=== PATIENT | female | born 1945 | race Two or more races ===

== ENCOUNTER 2022-11-13 13:09 | Emergency (ER) | payer MEDICARE, MEDICAID, SELFPAY ==
[2022-11-13 13:24] VITALS: BP 115/65; PULSE 80; RESP 18; TEMP 36.4; O2SAT 97; BMI 27.3
--- NOTE | 2022-11-13 13:36 | ED_ITS ---
HPI - Extremity Injury (Upper) General Chief Complaint: Extremity Injury, Upper Stated Complaint: UPPER EXTREMITY PAIN/ POST SURGERY Time Seen by Provider: 11/13/22 13:36 Source: patient, family, caregiver and patient financial services coordinator Mode of arrival: walk-in Limitations: language barrier Exam limitations: relative is translating History of Present Illness HPI narrative: Presents to emergency department complaining of a rash. Patient states she had surgery last month. She was started on Keflex. Patient finished his antibiotics 10 days after the surgery. She has been doing well. To this ago started developing a rash to her legs and body. It was very itchy and erythematous. She does not know what the initial insult is. She has no previous history of ALLERGIES. She was taking Benadryl which was not helping call her doctor and yesterday she took a Zyrtec. She states since last night the rash and itchiness started expanding to her forehead her face and her scalp and he felt as it was red and fire. She is denying any headache, visual disturbance, or speech difficulties. She is here because of itching to the scalp feeling like her scalp is on fire and the diffuse rash. She denies any difficulty swallowing, sore throat, or swelling. She denies any chest pain, shortness of breath. She denies any nausea, vomiting, or diarrhea. She denies any fever, chills, or cough. She denies any abdominal pain, flank pain, hematuria, dysuria. She denies using any new creams, ointments, detergents, or soaps. Related Data Previous Rx's Medication Instructions Recorded diphenhydramine HCl 25 mg capsule 25 mg PO Q8H PRN itching #20 caps 11/13/22 (Benadryl) famotidine 20 mg tablet (Pepcid) 20 mg PO DAILY #10 tabs 11/13/22 prednisone 50 mg tablet 50 mg PO DAILY 5 days #5 tabs 11/13/22 Allergies Allergy/AdvReac Type Severity Reaction Status Date / Time No Known Drug Allergies Allergy Verified 11/13/22 13:33 Review of Systems ROS Status of ROS 10 or more systems reviewed and unremarkable except as noted in history and below Exam Narrative Exam Narrative: Nurses notes and vital signs reviewed and patient is not hypoxic. General: Nontoxic, Well-appearing and in no apparent distress. Skin: Warm, dry, no pallor noted. Diffuse hives to the anterior posterior legs, chest, abdomen, forearms, scalp and face.no signs of Purpura, vesicles, or Vasculitis. Head: Normocephalic, atraumatic. Neck: Supple, non-tender. Eye: Pupils are equal, round and EOMI. No scleral icterus. Ears, Nose, Mouth, and Throat: TM clear, no posterior oropharynx erythema or nasal mucosal hypertrophy, uvula is mid-line Oral mucosa is moist Cardiovascular: Regular Rate and Rhythm without murmur, gallop or rub. Respiratory: No accessory muscle use or respiratory distress. Lungs are clear to auscultation, no wheezing, rales or rhonchi Chest Wall: no tenderness Back: No midline thoracic or lumbar vertebral tenderness. No CVA tenderness Musculoskeletal: Right anterior shoulder incision healing without any erythema, exudate, or dehiscence. normal ROM, no calf or popliteal tenderness, no lower extremity edema/swelling GI: Abdomen is soft, non-distended. Normal bowel sounds. No masses appreciated. No tenderness to palpation. No rebound, guarding, or rigidity noted. Neurological: A&O x4. No cranial nerve dysfunction observed. No truncal ataxia. Moves all extremities. Sensation intact. Psychiatric: Cooperative and interactive. Normal mood and affect. Constitutional Vital Signs, click to edit/add: Last Vital Signs Temp 97.5 F L 11/13/22 13:24 Pulse 80 11/13/22 13:24 Resp 18 11/13/22 13:24 BP 115/65 11/13/22 13:24 Pulse Ox 97 11/13/22 13:24 O2 Del Method Room Air 11/13/22 13:24 Course Vital Signs Vital signs: Vital Signs Temperature 97.5 F L 11/13/22 13:24 Pulse Rate 80 11/13/22 13:24 Respiratory Rate 18 11/13/22 13:24 Blood Pressure 115/65 11/13/22 13:24 Pulse Oximetry 97 11/13/22 13:24 Oxygen Delivery Method Room Air 11/13/22 13:24 Temperature 97.5 F L 11/13/22 13:24 Pulse Rate 80 11/13/22 13:24 Respiratory Rate 18 11/13/22 13:24 Blood Pressure 115/65 11/13/22 13:24 Pulse Oximetry 97 11/13/22 13:24 Oxygen Delivery Method Room Air 11/13/22 13:24 MDM - Extremity Injury (Upper) MDM Narrative Medical decision making narrative: A shunt had an IV established, she was given Decadron 10 mg IV, Benadryl, and Pepcid. Patient's symptoms resolved. Patient feeling better although she still has some of the rash. Cystitis itches it was 4. Blood work was done to exclude any bacterial infection including labs are unremarkable. O2 sats was discussed with patient. She is given a prescription for prednisone, Benadryl, and Pepcid. She is advised to follow-up with her primary care doctor in the morning. At this time the patient is without objective evidence of an acute process requiring hospitalization or inpatient management. The patient has remained hemodynamically stable. No additional indication for emergent studies at this time. I answered all questions. Discussed discharge instructions including standard anticipatory guidance and what should prompt a return to the emergency department, including if they get worse are not getting better or develops any new or concerning symptoms. I've given them specific time frame in which to follow-up, and who to follow-up with. The patient demonstrates understanding. Patient is nontoxic and stable for discharge with outpatient follow-up. This note was created with the assistance of a speech recognition program. Although the intention is to generate documents that actually reflects the content of the visit, no guarantees can be provided that every mistake has been identified and corrected by editing. Lab Data Attestation: I reviewed the patient's lab results. Labs: Lab Results 11/13/22 Range/Units 14:00 WBC 7.7 (4.0-11.0) 10^3/uL RBC 4.01 L (4.20-5.40) 10^6/uL Hgb 12.5 (12.0-16.0) g/dL Hct 37.3 (36.0-48.0) % MCV 93.0 (81.0-99.0) fL MCH 31.2 (26.7-34.0) pg MCHC 33.5 (29.9-35.2) g/dL RDW 13.4 (11.0-15.0) % Plt Count 192 (150-450) 10^3/uL MPV 9.2 L (9.5-13.5) fL Seg Neuts % (Manual) 62.0 Band Neutrophils % 0.0 (0-5) % Lymphocytes % (Manual) 30.0 (20.5-60.0) % Atypical Lymphs % (Man) 1.0 % Monocytes % (Manual) 6.0 (1.7-12.0) % Eosinophils % (Manual) 1.0 (0.9-7.0) % Basophils % (Manual) 0.0 L (0.2-2.0) % Neutrophils # (Manual) 4.77 (1.4-6.5) 10^3/uL Band Neutrophils # 0.0 (0.0-0.3) 10^3/uL Lymphocytes # (Manual) 2.31 (1.20-3.80) 10^3/uL Monocytes # (Manual) 0.46 (0.30-0.80) 10^3/uL Eosinophils # (Manual) 0.07 (0.00-0.70) 10^3/uL Basophils # (Manual) 0.00 (0.00-0.10) 10^3/uL ESR 27 (<=30) mm/hr Sodium 138 (136-145) mmol/L Potassium 3.9 (3.5-5.1) mmol/L Chloride 104 (98-107) mmol/L Carbon Dioxide 24.4 (21.0-32.0) mmol/L Anion Gap 13.5 BUN 15.0 (7.0-18.0) mg/dL Creatinine 0.81 (0.55-1.02) mg/dL Est GFR ( Amer) >60 (>=60) Est GFR (Non-Af Amer) >60 (>=60) BUN/Creatinine Ratio 18.5 Glucose 134 H (74-106) mg/dL Calcium 9.2 (8.5-10.1) mg/dL C-Reactive Protein 0.8 (<=1.0) mg/dL Discharge Plan Discharge Chief Complaint: Extremity Injury, Upper Clinical Impression: Acute allergic reaction Patient Disposition: Home, Self-Care Time of Disposition Decision: 15:50 Condition: Good Mode of Transportation: Private Vehicle Prescriptions / Home Meds: New famotidine [Pepcid] 20 mg tablet 20 mg PO DAILY Qty: 10 0RF prednisone 50 mg tablet 50 mg PO DAILY 5 Days Qty: 5 0RF diphenhydramine HCl [Benadryl] 25 mg capsule 25 mg PO Q8H PRN (Reason: itching) Qty: 20 0RF Instructions: General Allergic Reaction (ED) Stand Alone Forms: Portal Instructions Referrals: Physician,Non-Staff, MD [Primary Care Provider] - 1 week
[2022-11-13] MEDS: 0.9 % SODIUM CHLORIDE 1,000 ML 999 ML IV (14:07)
[2022-11-13] MEDS: DIPHENHYDRAMINE HCL 50 MG/ML (1ML) VIAL IV (14:08)
[2022-11-13] MEDS: DEXAMETHASONE SODIUM PHOSPHATE 10 MG/ML VIAL IV (14:08)
[2022-11-13 14:09] LABS: Hematocrit 37.3 % (36.0-48.0); Hemoglobin 12.5 g/dL (12.0-16.0); Mean Corpuscular HGB Conc 33.5 g/dL (29.9-35.2); Mean Corpuscular Hemoglobin 31.2 pg (26.7-34.0); Mean Platelet Volume 9.2 fL (9.5-13.5); Platelet Count 192 10^3/uL (150-450); Red Blood Count 4.01 10^6/uL (4.20-5.40); Red Cell Distribution Width 13.4 % (11.0-15.0); White Blood Count 7.7 10^3/uL (4.0-11.0)
--- NOTE | 2022-11-13 14:21 | PC.NURSE ---
Pt. reports having an itching sensation to right upper extremity after surgery to right shoulder about 1 month ago. Pt. states pain has been controlled but started with itching sensaion about 3 days ago.
[2022-11-13 14:23] LABS: Anion Gap 13.5; BUN Creatinine Ratio 18.5; C Reactive Protein 0.8 mg/dL (<=1.0); Calcium 9.2 mg/dL (8.5-10.1); Carbon Dioxide 24.4 mmol/L (21.0-32.0); Chloride 104 mmol/L (98-107); Estimated GFR (African America >60 (>=60); Estimated GFR (Non-African Ame >60 (>=60); Glucose 134 mg/dL (74-106); Potassium 3.9 mmol/L (3.5-5.1); Sodium 138 mmol/L (136-145)
[2022-11-13 14:27] LABS: Erythrocyte Sedimentation Rate 27 mm/hr (<=30)
[2022-11-13 14:38] LABS: Lymphocytes Absolute Manual 2.31 10^3/uL (1.20-3.80); Monocytes Absolute Manual 0.46 10^3/uL (0.30-0.80); Segmented Neut Absolute Manual 4.77 10^3/uL (1.4-6.5)
[2022-11-13 14:39] LABS: Eosinophils Absolute Manual 0.07 10^3/uL (0.00-0.70)
[2022-11-13] MEDS: FAMOTIDINE/PF 20 MG/2 ML VIAL IV (16:03)
[2022-11-13 16:07] VITALS: BP 122/77; PULSE 78; RESP 16; O2SAT 98
== END 2022-11-13 16:18 | disposition home or self-care (01) ==
PROVIDERS: Emergency Provider Emergency Medicine
DX: T78.40XA Allergy, unspecified, initial encounter (principal)
CPT/HCPCS: 36415; 80048; 85007; 85025; 85027; 85652; 86140; 96374; 96375; 99284; J1100

== ENCOUNTER 2022-12-03 21:51 | Emergency (ER) | payer MEDICARE, MEDICAID, SELFPAY ==
[2022-12-03 21:58] VITALS: BP 119/67; PULSE 87; RESP 16; TEMP 36.5; O2SAT 95; BMI 26.5
--- NOTE | 2022-12-03 22:26 | ED_ITS ---
HPI - Fall General Chief Complaint: Fall Stated Complaint: RT FLANK PAIN/SHOULDER FALL Time Seen by Provider: 12/03/22 22:13 Source: patient and family Mode of arrival: walk-in Limitations: language barrier History of Present Illness HPI Narrative: family interpreting. Patient fell last week. Was reaching down for a cord and loss balance.Struck her right chest. Also struck face about her right eye. Her face is doing ok. No LOC. Continues to have pain of her right ribs. No relief with motrin. No fever Onset (ago): week(s) Related Data Home Medications Medication Instructions Recorded Confirmed cyclosporine 0.05 % eye drops in a drp ophthalmic (eye) 12/03/22 dropperette (Restasis) ibuprofen 200 mg capsule 200 mg PO Q8H 12/03/22 12/03/22 Allergies Allergy/AdvReac Type Severity Reaction Status Date / Time No Known Drug Allergies Allergy Verified 12/03/22 21:58 Review of Systems ROS Status of ROS 10 or more systems reviewed and unremarkable except as noted in history and below Exam Constitutional Vital Signs, click to edit/add: Last Vital Signs Temp 97.7 F 12/03/22 21:58 Pulse 82 12/03/22 23:47 Resp 14 12/03/22 23:47 BP 130/69 12/03/22 23:47 Pulse Ox 97 12/03/22 23:47 O2 Del Method Room Air 12/03/22 23:47 Common normals: average body habitus, healthy appearing and alert Eye Common normals: EOMs intact bilaterally and conjunctivae normal Neck & C-Spine Common normals: full ROM Chest Other: right chest wall tenderness Respiratory Common normals: no use of accessory muscles and clear to auscultation bilaterally Cardio Common normals: regular rhythm, S1 normal heart sound and S2 normal heart sound GI Common normals: Normal to inspection, nondistended, normoactive bowel sounds present, soft to palpation and non-tender Extremity Common normals: normal to inspection and full ROM Neuro Common normals: moves all extremities, no focal motor deficits and no sensory deficits noted Psych Appearance: grossly normal Course Vital Signs Vital signs: Vital Signs Temperature 97.7 F 12/03/22 21:58 Pulse Rate 87 12/03/22 21:58 Respiratory Rate 16 12/03/22 21:58 Blood Pressure 119/67 12/03/22 21:58 Pulse Oximetry 95 12/03/22 21:58 Oxygen Delivery Method Room Air 12/03/22 21:58 Temperature 97.7 F 12/03/22 21:58 Pulse Rate 82 12/03/22 23:47 Respiratory Rate 14 12/03/22 23:47 Blood Pressure 130/69 12/03/22 23:47 Pulse Oximetry 97 12/03/22 23:47 Oxygen Delivery Method Room Air 12/03/22 23:47 MDM - Fall MDM Narrative Medical decision making narrative: patient fell last week injury to her right chest. CT with evidence of 2 nondisplaced rib fractures. Also found to have pulmonary nodule that will require followup patient medicated with morphine for pain in the department. Labs WNL. She is discharged home with [place] and is to follow up with her doctor next week. Family informed of the need to have repeat CT chest in 3-6 months to monitor pulmonary nodule Lab Data Labs: Lab Results 12/03/22 Range/Units 22:45 WBC 7.2 (4.0-11.0) 10^3/uL RBC 3.91 L (4.20-5.40) 10^6/uL Hgb 12.1 (12.0-16.0) g/dL Hct 35.8 L (36.0-48.0) % MCV 91.6 (81.0-99.0) fL MCH 30.9 (26.7-34.0) pg MCHC 33.8 (29.9-35.2) g/dL RDW 14.0 (11.0-15.0) % Plt Count 264 (150-450) 10^3/uL MPV 9.3 L (9.5-13.5) fL Neut % (Auto) 43.8 (43.0-75.0) % Lymph % (Auto) 42.4 (20.5-60.0) % [place] % (Auto) 10.9 (1.7-12.0) % Eos % (Auto) 2.1 (0.9-7.0) % Baso % (Auto) 0.4 (0.2-2.0) % Neut # (Auto) 3.1 (1.4-6.5) 10^3/uL Lymph # (Auto) 3.0 (1.2-3.8) 10^3/uL [place] # (Auto) 0.8 (0.3-0.8) 10^3/uL Eos # (Auto) 0.2 (0.0-0.7) 10^3/uL Baso # (Auto) 0.0 (0.0-0.1) 10^3/uL Abs Immat Gran (auto) 0.03 (0.00-0.03) 10^3/uL Imm/Tot Granulo (auto) 0.4 (0.0-0.5) % Sodium 139 (136-145) mmol/L Potassium 3.9 (3.5-5.1) mmol/L Chloride 104 (98-107) mmol/L Carbon Dioxide 26.0 (21.0-32.0) mmol/L Anion Gap 12.9 BUN 12.0 (7.0-18.0) mg/dL Creatinine 0.85 (0.55-1.02) mg/dL Est GFR ( Amer) >60 (>=60) Est GFR (Non-Af Amer) >60 (>=60) BUN/Creatinine Ratio 14.1 Glucose 108 H (74-106) mg/dL Lactate 1.1 (0.4-2.0) mmol/L Calcium 9.2 (8.5-10.1) mg/dL Total Bilirubin 0.3 (0.2-1.0) mg/dL AST 38 H (15-37) U/L ALT 37 (14-59) U/L Alkaline Phosphatase 104 (46-116) U/L Total Protein 7.8 (6.4-8.2) g/dL Albumin 3.4 (3.4-5.0) g/dL Globulin 4.4 g/dL Albumin/Globulin Ratio 0.8 Discharge Plan Discharge Chief Complaint: Fall Clinical Impression: Closed rib fracture Prescriptions / Home Meds: No Action cyclosporine [Restasis] 0.05 % dropperette OPHTHALMIC (EYE) ibuprofen 200 mg capsule 200 mg PO Q8H Instructions: Rib Fracture (ED) Additional Instructions: follow up with your doctor next week. need repeat CT chest in 3-6 months as discussed Stand Alone Forms: Portal Instructions Referrals: Physician,Non-Staff, MD [Primary Care Provider] - 1 week
--- NOTE | 2022-12-03 22:29 | CT_ITS ---
The [address] [address] Patient Name: ARASH FLORES MRN: [facility]:[id number] date: 1945 Sex: F Assigned Patient Location: ER Current Patient Location: ER Accession/Order Number: [id number] Exam Date: 12/03/2022 23:30 Report Date: 12/04/2022 00:40 At the request of: EBONY KHAN Procedure: CT chest w con EXAM: CT chest w con, CT abdomen pelvis w con HISTORY: right chest wall injury , right rib and shoulder pain from fall injury. COMPARISON: Chest x-ray 04/28/2021 TECHNIQUE: Multiple axial views CT chest with 100 mL Omnipaque 300 IV contrast. Coronal sagittal reformats. Multiple axial views CT abdomen pelvis with 100 mL Omnipaque 300 IV contrast. Coronal sagittal reformats. FINDINGS: CHEST: No pneumothorax, lung contusion, pleural effusions, pneumomediastinum, or mediastinal hematoma. 4 mm solid noncalcified irregular right middle lobe pulmonary nodule (image 50 series 3). Mild bilateral lower lung linear atelectasis/scar. Cardiac mediastinum is unremarkable. Subtle minimal right lateral eighth rib cortical buckling (image 78 series 5). Left anterior 6th rib mildly displaced fracture deformity with callus formation (image 75 series 5), probably subacute or remote. Mild left anterior fifth rib cortical buckling (image 60 series 5). Partially visualized right shoulder arthroplasty. Minimal hiatal hernia. ABDOMEN AND PELVIS: No solid organ laceration, hematoma, hemoperitoneum, or pneumoperitoneum. Moderate hepatic steatosis. Gallbladder, pancreas, spleen, adrenal glands, right kidney, urinary bladder, and other pelvic structures are unremarkable. Appendix is not seen. Uterus is not seen nor surgically absent. Multiple subcentimeter left renal cystic structures, too small to characterize. Findings are statistically cysts. Scattered colonic diverticula. Moderate amount of stool within the right large bowel. No evidence for small bowel obstruction, large ascites, or free air. Small fat-containing umbilical hernia without bowel protrusion. Chronic arthritic changes of the visualized bony structures. No acute bony abnormality. CT/CT chest w con IMPRESSION: Subtle minimal right lateral eighth rib cortical buckling (image 78 series 5). Correlate with point tenderness for any subtle nondisplaced rib fracture. Left anterior 6th rib mildly displaced fracture deformity with callus formation (image 75 series 5), probably subacute or remote. Mild left anterior fifth rib cortical buckling (image 60 series 5). Correlate with point tenderness for acuity. Otherwise, no CT evidence for acute traumatic chest lung or mediastinal injury. No CT evidence for acute abdominal or pelvic solid organ or hollow viscus injury. 4 mm solid noncalcified irregular right middle lobe pulmonary nodule (image 50 series 3). Consider 3-[address] follow-up given the slight irregular margin. Hepatic steatosis. Colonic diverticula. Electronically authenticated by: RICARDO FRASER Date: 12/04/2022 00:40
--- NOTE | 2022-12-03 22:29 | CT_ITS ---
The [address] [address] Patient Name: ARASH FLORES MRN: [facility]:[id number] date: 1945 Sex: F Assigned Patient Location: ER Current Patient Location: ER Accession/Order Number: [id number] Exam Date: 12/03/2022 23:30 Report Date: 12/04/2022 00:40 At the request of: EBONY KHAN Procedure: CT abdomen pelvis w con EXAM: CT chest w con, CT abdomen pelvis w con HISTORY: right chest wall injury , right rib and shoulder pain from fall injury. COMPARISON: Chest x-ray 04/28/2021 TECHNIQUE: Multiple axial views CT chest with 100 mL Omnipaque 300 IV contrast. Coronal sagittal reformats. Multiple axial views CT abdomen pelvis with 100 mL Omnipaque 300 IV contrast. Coronal sagittal reformats. FINDINGS: CHEST: No pneumothorax, lung contusion, pleural effusions, pneumomediastinum, or mediastinal hematoma. 4 mm solid noncalcified irregular right middle lobe pulmonary nodule (image 50 series 3). Mild bilateral lower lung linear atelectasis/scar. Cardiac mediastinum is unremarkable. Subtle minimal right lateral eighth rib cortical buckling (image 78 series 5). Left anterior 6th rib mildly displaced fracture deformity with callus formation (image 75 series 5), probably subacute or remote. Mild left anterior fifth rib cortical buckling (image 60 series 5). Partially visualized right shoulder arthroplasty. Minimal hiatal hernia. ABDOMEN AND PELVIS: No solid organ laceration, hematoma, hemoperitoneum, or pneumoperitoneum. Moderate hepatic steatosis. Gallbladder, pancreas, spleen, adrenal glands, right kidney, urinary bladder, and other pelvic structures are unremarkable. Appendix is not seen. Uterus is not seen nor surgically absent. Multiple subcentimeter left renal cystic structures, too small to characterize. Findings are statistically cysts. Scattered colonic diverticula. Moderate amount of stool within the right large bowel. No evidence for small bowel obstruction, large ascites, or free air. Small fat-containing umbilical hernia without bowel protrusion. Chronic arthritic changes of the visualized bony structures. No acute bony abnormality. CT/CT abdomen pelvis w con IMPRESSION: Subtle minimal right lateral eighth rib cortical buckling (image 78 series 5). Correlate with point tenderness for any subtle nondisplaced rib fracture. Left anterior 6th rib mildly displaced fracture deformity with callus formation (image 75 series 5), probably subacute or remote. Mild left anterior fifth rib cortical buckling (image 60 series 5). Correlate with point tenderness for acuity. Otherwise, no CT evidence for acute traumatic chest lung or mediastinal injury. No CT evidence for acute abdominal or pelvic solid organ or hollow viscus injury. 4 mm solid noncalcified irregular right middle lobe pulmonary nodule (image 50 series 3). Consider 3-[address] follow-up given the slight irregular margin. Hepatic steatosis. Colonic diverticula. Electronically authenticated by: RICARDO FRASER Date: 12/04/2022 00:40
[2022-12-03 22:52] LABS: Basophils Percent Auto 0.4 % (0.2-2.0); Eosinophils Absolute Auto 0.2 10^3/uL (0.0-0.7); Eosinophils Percent Auto 2.1 % (0.9-7.0); Hematocrit 35.8 % (36.0-48.0); Hemoglobin 12.1 g/dL (12.0-16.0); Immature Granulocytes Abs Auto 0.03 10^3/uL (0.00-0.03); Immature Granulocytes Pct Auto 0.4 % (0.0-0.5); Lymphocytes Percent Auto 42.4 % (20.5-60.0); Mean Corpuscular HGB Conc 33.8 g/dL (29.9-35.2); Mean Corpuscular Hemoglobin 30.9 pg (26.7-34.0); Mean Corpuscular Volume 91.6 fL (81.0-99.0); Mean Platelet Volume 9.3 fL (9.5-13.5); Monocytes Absolute Auto 0.8 10^3/uL (0.3-0.8); Monocytes Percent Auto 10.9 % (1.7-12.0); Neutrophils Absolute Auto 3.1 10^3/uL (1.4-6.5); Neutrophils Percent Auto 43.8 % (43.0-75.0); Platelet Count 264 10^3/uL (150-450); Red Blood Count 3.91 10^6/uL (4.20-5.40); White Blood Count 7.2 10^3/uL (4.0-11.0)
[2022-12-03] MEDS: 0.9 % SODIUM CHLORIDE 1,000 ML 999 ML IV (22:57)
[2022-12-03] MEDS: ONDANSETRON PF 4 MG/2 ML VIAL IV (22:58)
[2022-12-03] MEDS: MORPHINE SULFATE 4 MG/ML VIAL IV (22:58)
[2022-12-03 23:05] LABS: Alanine Aminotransferase 37 U/L (14-59); Albumin Globulin Ratio 0.8; Albumin Level 3.4 g/dL (3.4-5.0); Alkaline Phosphatase 104 U/L (46-116); Anion Gap 12.9; Aspartate Amino Transferase 38 U/L (15-37); BUN Creatinine Ratio 14.1; Bilirubin Total 0.3 mg/dL (0.2-1.0); Calcium 9.2 mg/dL (8.5-10.1); Chloride 104 mmol/L (98-107); Estimated GFR (African America >60 (>=60); Estimated GFR (Non-African Ame >60 (>=60); Globulin 4.4 g/dL; Glucose 108 mg/dL (74-106); Potassium 3.9 mmol/L (3.5-5.1); Sodium 139 mmol/L (136-145); Total Protein 7.8 g/dL (6.4-8.2)
[2022-12-03 23:07] LABS: Lactate/Lactic Acid 1.1 mmol/L (0.4-2.0)
[2022-12-03 23:47] VITALS: BP 130/69; PULSE 82; RESP 14; O2SAT 97
[2022-12-04] MEDS: HYDROCODONE/ACETAMINOPHEN 5-325 MG TABLET 2 TAB PO (01:26)
[2022-12-04 01:33] VITALS: BP 138/76; PULSE 82; RESP 18; O2SAT 97
== END 2022-12-04 01:36 | disposition home or self-care (01) ==
LOC: ER 21:58
PROVIDERS: Emergency Provider Internal Medicine
DX: S22.41XA Multiple fractures of ribs, right side, initial encounter for closed fracture (principal); W19.XXXA Unspecified fall, initial encounter; Z79.899 Other long term (current) drug therapy
CPT/HCPCS: 36415; 71260; 74177; 80053; 81003; 83605; 85025; 96374; 96375; 99284; Q9967

== ENCOUNTER 2023-05-26 14:41 | Outpatient (OUT) | payer MEDICARE, MEDICAID, SELFPAY ==
[2023-05-26 15:16] LABS: Anion Gap 9.5; BUN Creatinine Ratio 15.6; Calcium 9.4 mg/dL (8.5-10.1); Carbon Dioxide 30.5 mmol/L (21.0-32.0); Chloride 105 mmol/L (98-107); Estimated GFR (African America >60 (>=60); Estimated GFR (Non-African Ame >60 (>=60); Glucose 96 mg/dL (74-106); Sodium 141 mmol/L (136-145)
== END 2023-05-26 14:42 | disposition home or self-care (01) ==
PROVIDERS: Visit Provider Family Medicine
DX: R91.1 Solitary pulmonary nodule (principal)
CPT/HCPCS: 36415; 80048

== ENCOUNTER 2023-06-08 09:29 | Outpatient (OUT) | payer MEDICARE, MEDICAID, SELFPAY ==
--- OUTSIDE RECORDS SUMMARY | 2023-06-08 09:32 | XMS_ITS | CCD ---
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 Name Role Phone SHANI, DR CAMP Consulting Unavailable REQUEST, DR GUEVARA LISTED Primary Care Unavaila alex LAWS, TONY Attending Unavailable EUSEBIA, TONY Admitting Unavailable TRACEY RODRÍGUEZ Consulting Unavailable Joey Larson Consulting Unavailable Noe, Adriana Consulting Unavailable NONE, XXXX Primary Care Physician Unavailab GLENN Cantor Attending Unavailable Dimitrios, Glenn Medina Referring Unavailable Dimitrios, Glenn Medina Attending Unavailable Dimitrios, Glenn A Admitting Unavailable Dimitrios, Glenn A Attending Unavailable Dimitrios, Glenn A Admitting Unavailable Brown, Glenn A Attending Unavailable Dimitrios, Glenn A Admitting Unavailable Brown, Glenn A Referring Unavailable Dimitrios, Glenn A Referring Unavailable Dimitrios, Glenn A Attending Unavailable Brown, Glenn A Admitting Unavailable Allergies Allergy Classification Reported Allergen(s) Allergy Type Date of Onset Reaction(s) Facility (1 source) No Known Medication Allergies; Translations: [No Known Medication Allergies] Propensity to adverse reactions (disorder) [facility] Repository Medications Current Medications Medication Drug Class(es) Dates Sig (Normalized) Sig (Original) Tylenol (1 source) Start: 09-27-2022 Tylenol PRN Pain 1-3, Refills(s) 0, Pain Start Date: 09/27/22 Status: Ordered acetaminophen 325 mg / oxyCODONE hydrochloride 5 mg oral tablet (3 sources) Opioid Agonist Start: 10-12-2022 Percocet 5 mg-325 mg oral tablet See Instructions, 40 tab(s), Refill(s) 0, 1-2 tab(s) Oral q4hr, [id number], 155, cm, 09/28/22 5:33:00 EDT, Height/Length Dosing, 65.6, kg, 09/28/22 5:33:00 EDT, Weight Dosing Start Date: 10/22/22 Status: Ordered celecoxib 100 mg oral capsule (2 sources) Nonsteroidal Anti-inflammatory Drug Start: 10-12-2022 take 1 capsule by mouth twice daily as needed for pain CeleBREX 100 mg Cap 100 mg = 1 cap(s), Oral, BID, PRN for pain, # 60 cap(s), Refills(s) 0, Pharmacy: [facility]/pharmacy #[id number], 155, cm, 09/28/22 5:33:00 EDT, Height/Length Dosing, 65.6, kg, 09/28/22 5:33:00 EDT, Weight Dosing Start Date: 10/12/22 Status: Ordered cephalexin 500 mg oral capsule (1 source) Cephalosporin Antibacterial Start: 10-12-2022 End: 10-19-2022 take 1 capsule by mouth every eight hours Keflex 500 mg Cap 500 mg = 1 cap(s), Oral, q8hr, X 7 day(s), # 21 cap(s), Refills(s) 0, Pharmacy: [facility]/pharmacy #[id number], 155, cm, 09/28/22 5:33:00 EDT, Height/Length Dosing, 65.6, kg, 09/28/22 5:33:00 EDT, Weight Dosing Start Date: 10/12/22 Stop Date: 10/19/22 Status: Ordered docusate sodium 100 mg oral capsule (2 sources) Start: 10-12-2022 take 1 capsule by mouth twice daily as needed for constipation Colace 100 mg Cap 100 mg = 1 cap(s), Oral, BID, PRN for constipation, # 20 cap(s), Refills(s) 0, Pharmacy: [facility]/pharmacy #[id number], 155, cm, 09/28/22 5:33:00 EDT, Height/Length Dosing, 65.6, kg, 09/28/22 5:33:00 EDT, Weight Dosing Start Date: 10/12/22 Status: Ordered Ibuprofen (1 source) Nonsteroidal Anti-inflammatory Drug Start: 09-27-2022 ibuprofen PRN Pain 1-3, Pain Start Date: 09/27/22 Status: Ordered Multivitamin preparation (3 sources) Start: 09-27-2022 take 1 tablet by mouth once daily multivitamin 1 tab, Oral, Daily, Refill(s) 0, Prophylaxis Start Date: 09/27/22 Status: Ordered Problems Problem Classification Problem Date Documented Da te Episodic/Chronic E Codes: Fall (1 source) Fall (on) (from) unspecified stairs and steps, initial encounter; Translations: [FALL ON FROM UNS STAIRS STEPS INIT] Onset: 05-03-2021 Episodic Headache; including migraine (3 sources) Headache; including migraine; Translations: [HEADACHE UNSPECIFIED] Onset: 04-28-2021 Immunizations and screening for infectious disease (1 source) Encounter for immunization; Translations: [ENCOUNTER FOR IMMUNIZATION] Onset: 05-03-2021 Episodic Other injuries and conditions due to external causes (1 source) Other specified injuries of head, initial encounter; Translations: [OTH SPEC INJURIES HEAD INITIAL ENC] Onset: 05-03-2021 Episodic Other nervous system disorders (1 source) Other chronic pain; Translations: [OTHER CHRONIC PAIN] Onset: 05-03-2021 Chronic Other non-traumatic joint disorders (1 source) Transient arthropathy; Translations: [Other specific arthropathies, not elsewhere classified, right shoulder] Onset: 10-12-2022 Chronic Other non-traumatic joint disorders (1 source) Pain in left shoulder; Translations: [PAIN IN LEFT SHOULDER] Onset: 05-03-2021 Episodic Other non-traumatic joint disorders (1 source) Pain in right shoulder; Translations: [PAIN IN RIGHT SHOULDER] Onset: 05-03-2021 Episodic Sprains and strains (1 source) Strain of muscle, fascia and tendon at neck level, initial encounter; Translations: [STRN MUSC FASC TENDON NECK LEVL INT] Onset: 05-03-2021 Episodic Superficial injury; contusion (2 sources) Abrasion of other part of head, initial encounter; Translations: [Contusion of other part of head, initial encounter] Onset: 05-03-2021 Episodic Results Test Name Value Interpretation Reference Range Facility CT 3D Reconstruction Ethel Clarke 04-10-2023 CT 3D Reconstruction Separate Wk Exam Date/Time: 04/07/2023 17:11 EST Reason for Exam: [id number] upper extremity report from the same date. Ordering Provider: Glenn Plunkett FINAL REPORT Dictated: 04/10/2023 4:35 pm Bernardo Lizarraga DO Signed (Electronic Signature): 04/10/2023 4:35 pm Signed by: Bernardo Lizarraga DO Transcribed by: JACKSON Technologist: JEANNETTE [facility] CT Upper Extremity w/o Contr ast [place] 04-10-2023 CT Upper Extremity w/o Contrast Right Exam Date/Time: 04/07/2023 17:10 EST Reason for Exam: [id number] Report IMPRESSION: HEALING NONDISPLACED FRACTURE OF THE ACROMION. EXAMINATION: CT Upper Extremity w/o Contrast Right HISTORY: Scapular fracture TECHNIQUE: Multiple contiguous axial images were obtained of the right shoulder without contrast . Multiplanar reformats were obtained. 3-D reconstructed images were obtained. COMPARISON: CT 09/27/2022 FINDINGS: Healing nondisplaced fracture of the acromion. No additional fractures. There is lateral downsloping of the acromion. Mild degenerative changes at the acromioclavicular joint. Postsurgical changes of reverse shoulder arthroplasty without periprosthetic abnormality/fracture . No overt glenohumeral joint effusion. Soft tissues appear within normal limits. All CT scans at this facility use dose modulation, iterative reconstruction, and/or weight based dosing when appropriate to reduce radiation dose to as low as reasonably achievable. Ordering Provider: Glenn Plunkett FINAL REPORT Dictated: 04/10/2023 4:35 pm Bernardo Lizarraga DO Signed (Electronic Signature): 04/10/2023 4:35 pm Signed by: Bernardo Lizarraga DO Transcribed by: JACKSON Technologist: [facility] Consent for Treatmenton Consent for Treatment [id number] #1.00TIFF [facility] Physician Orderon 03-30-2023 Physician Order [id number] #1.00TIFF [facility] Lab Miscellaneous-LCon 02-16 Lab Miscellaneous See Ref. Report Invalid Interpretation Code [facility] Comment on above: Result Comment: [facility] at: [facility] [address], [place] [id number] PhD Raphael Sharma Results scanned into Lab Documents Performed at: [facility] [address], [place] [id number] PhD Raphael Sharma Performed By: #### 1 [id number] #### [facility] [address] [place] [address] Reference Lab Reporton 02-16 Reference Lab Report [id number] 2#1.00TIFF Normal [facility] Coding Summary.on 02-08-2023 Coding Summary. [id number] #1.00TIFF Normal [facility] Auto Diffon 02-07-2023 Basophils/100 WBC (Bld) 0.9 % Normal 0.0-2.0 [facility] Comment on above: Order Comment: Order Added by Discern Expert. Performed By: #### 1 1132875, 0702533, 0924225, 0021116 #### [facility] [address] [place] [address] Basophils/Leukocytes Auto (Bld) [Pure # fraction] 0.1 E9/L Normal 0.0-0.2 [facility] Comment on above: Order Comment: Order Added by Discern Expert. Performed By: #### 1 [id number], 3553812, 2596148, 2193790 #### [facility] [address] [place] [address] Eosinophils/100 WBC (Bld) 1.7 % Normal 0.0-8.0 [facility] Comment on above: Order Comment: Order Added by Discern Expert. Performed By: #### 1 [id number], 0285931, 6904491, 5436583 #### [facility] [address] [place] [address] Eosinophils/Leukocyte s Auto (Bld) [Pure # fraction] 0.1 E9/L Normal 0.0-0.5 [facility] Comment on above: Order Comment: Order Added by Discern Expert. Performed By: #### 1 4921216, 9343095, 3629093, 1786087 #### [facility] [address] [place] [address] Lymphocytes/100 WBC (Bld) 50.7 % High 14.0-50.0 [facility] Comment on above: Order Comment: Order Added by Discern Expert. Performed By: #### 1 3749780, 4432516, 5602579, 2337317 #### [facility] [address] [place] [address] Lymphocytes/Leukocyte s Auto (Bld) [Pure # fraction] 4.0 E9/L Normal 1.0-4.0 [facility] Comment on above: Order Comment: Order Added by Yvonne Expert. Performed By: #### 1 7241088, 8918059, 2260984, 8357314 #### [facility] [address] [place] [address] Monocytes/100 WBC (Bld) 10.0 % Normal 4.0-14.0 [facility] Comment on above: Order Comment: Order Added by Yvonne Expert. Performed By: #### 1 9561015, 2542127, 8149608, 8219441 #### [facility] [address] [place] [address] Monocytes/Leukocytes Auto (Bld) [Pure # fraction] 0.8 E9/L Normal 0.2-1.0 [facility] Comment on above: Order Comment: Order Added by Discern Expert. Performed By: #### 1 4389317, 4708488, 9818571, 8634941 #### [facility] [address] [place] [address] Neutrophils/100 WBC (Bld) 36.7 % Normal 36.0-75.0 [facility] Comment on above: Order Comment: Order Added by Yvonne Expert. Performed By: #### 1 7660901, 7411287, 4940139, 0241681 #### [facility] [address] [place] [address] Neutrophils/Leukocyte s Auto (Bld) [Pure # fraction] 2.9 E9/L Normal 2.0-7.5 [facility] Comment on above: Order Comment: Order Added by Discern Expert. Performed By: #### 1 1256777, 2942058, 7625142, 4924660 #### [facility] [address] [place] [address] CBC w/ Auto Diffon Erythrocyte distribution width (RBC) [Ratio] 14.5 % High 10.9-14.2 [facility] Comment on above: Performed By: #### 1 0513892, 9958776, 6802989, 7328662 #### [facility] [address] [place] [address] Hematocrit (Bld) [Volume fraction] 39.6 % Normal 34.0-46.0 [facility] Comment on above: Performed By: #### 1 1141364, 2389332, 0694492, 8388933 #### [facility] [address] [place] [address] Hemoglobin (Bld) [Mass/Vol] 13.4 g/dL Normal 12.0-16.0 [facility] Comment on above: Performed By: #### 1 7968807, 7701478, 9977998, 4418533 #### [facility] [address] [place] [address] MCH (RBC) [Entitic mass] 31.1 pg Normal 27.0-34.0 [facility] Comment on above: Performed By: #### 1 2017516, 6858845, 5103205, 8704250 #### [facility] [address] [place] [address] MCHC (RBC) [Mass/Vol] 33.8 g/dL Normal 31.4-36.0 [facility] Comment on above: Performed By: #### 1 8289441, 4153673, 1366033, 2123734 #### [facility] [address] [place] [address] MCV (RBC) [Entitic vol] 92.1 fL Normal 80.0-100.0 [facility] Comment on above: Performed By: #### 1 9682285, 8308058, 8288528, 2560152 #### [facility] [address] [place] [address] Platelet mean volume (Bld) [Entitic vol] 8.1 fL Normal 6.4-10.8 [facility] Comment on above: Performed By: #### 1 2886282, 7190650, 5369896, 6636330 #### [facility] [address] [place] [address] Platelets (Bld) [#/Vol] 226.0 E9/L Normal 150.0-500.0 [facility] Comment on above: Performed By: #### 1 6936658, 2302437, 8494980, 2443541 #### [facility] [address] [place] [address] RBC (Bld) [#/Vol] 4.3 E12/L Normal 4.3-5.9 [facility] Comment on above: Performed By: #### 1 4175363, 2960287, 8001854, 8487750 #### [facility] [address] [place] [address] WBC corrected for nucl RBC Auto (Bld) [#/Vol] 7.9 E9/L Normal 4.0-11.0 [facility] Comment on above: Result Comment: Slid e reviewed by LW. Performed By: #### 1 6775205, 3414872, 2557636, 1232366 #### [facility] [address] [place] [address] CRPon 02-07-2023 CRP [Mass/Vol] 0.6 mg/dL Normal <=1.9 [facility] Comment on above: Performed By: #### 1 4142922, 9382143, 5437462, 0041663 #### [facility] [address] [place] [address] Consent for Treatmenton 01-29 Consent for Treatment [id number] #1.00TIFF Normal [facility] Lab Miscellaneous-LCon 02-07 Test Code 248714 Invalid Interpretation Code [facility] Comment on above: Performed By: #### 1 [id number] #### [facility] [address] [place] [address] Test Name Interleukin 6 Invalid Interpretation Code [facility] Comment on above: Performed By: #### 1 [id number] #### [facility] [address] [place] [address] Physician Orderon 02-07-2023 Physician Order [id number] 8#1.00TIFF Normal [facility] Sed Rate Automatedon 023 Sed Rate Automated 15 mm/hr Normal 0-34 [facility] Comment on above: Performed By: #### 1 0938308, 2846372, 6361469, 0631175 #### [facility] [address] [place] [address] Insurance Correspondence Off iceon 01-10-2023 Insurance Correspondence Office [id number] #1.00CD:127 Normal [facility] IntraOperative Documentson 0 10-19-2022 IntraOperative Documents [id number] #1.00CD:127 Normal [facility] Auto Diffon 10-13-2022 Basophils/100 WBC (Bld) 0.2 % Normal 0.0-2.0 [facility] Comment on above: Order Comment: Order Added by Discern Expert. Performed By: #### 2 716693, 8919956, 0347987, 4586849, 0126200, 82672148 ####[facility] [address] [place] [address] Basophils/Leukocytes Auto (Bld) [Pure # fraction] 0.0 E9/L Normal 0.0-0.2 [facility] Comment on above: Order Comment: Order Added by Discern Expert. Performed By: #### 2 253648, 0889922, 5935353, 7473566, 2621473, 59356622 ####[address] [place] [address] Eosinophils/100 WBC (Bld) 0.0 % Normal 0.0-8.0 [facility] Comment on above: Order Comment: Order Added by Yvonne Expert. Performed By: #### 2 507497, 0543962, 8441533, 7356069, 7858713, 05951540 ####[address] [place] [address] Eosinophils/Leukocyte s Auto (Bld) [Pure # fraction] 0.0 E9/L Normal 0.0-0.5 [facility] Comment on above: Order Comment: Order Added by Yvonne Expert. Performed By: #### 2 998920, 9928222, 1322354, 6321360, 5472646, 24909433 ####[address] [address] Lymphocytes/100 WBC (Bld) 12.9 % Low 14.0-50.0 [facility] Comment on above: Order Comment: Order Added by Yvonne Expert. Performed By: #### 2 495283, 5447363, 6067938, 9263646, 9121973, 60632758 ####[address] [address] Lymphocytes/Leukocyte s Auto (Bld) [Pure # fraction] 2.7 E9/L Normal 1.0-4.0 [facility] Comment on above: Order Comment: Order Added by Yvonne Expert. Performed By: #### 2 011326, 9918000, 1543832, 8181278, 6966220, 50198998 ####[address] [place] [address] Monocytes/100 WBC (Bld) 6.3 % Normal 4.0-14.0 [facility] Comment on above: Order Comment: Order Added by Yvonne Expert. Performed By: #### 2 834871, 6616908, 0781632, 0739001, 8166007, 74725002 ####[address] [place] [address] Monocytes/Leukocytes Auto (Bld) [Pure # fraction] 1.3 E9/L High 0.2-1.0 [facility] Comment on above: Order Comment: Order Added by Discern Expert. Performed By: #### 2 199474, 9404473, 8833319, 8487458, 9560669, 07081907 ####[address] [address] Neutrophils/100 WBC (Bld) 80.6 % High 36.0-75.0 [facility] Comment on above: Order Comment: Order Added by Discern Expert. Performed By: #### 2 176459, 9164315, 4281522, 7906206, 3152491, 59216198 ####[address] [address] Neutrophils/Leukocyte s Auto (Bld) [Pure # fraction] 16.7 E9/L High 2.0-7.5 [facility] Comment on above: Order Comment: Order Added by Discern Expert. Performed By: #### 2 935570, 0972329, 8531783, 1116690, 8983385, 32942424 ####[address] [place] [address] BUNon 10-13-2022 Urea nitrogen [Mass/Vol] 18 mg/dL Normal 5-21 [facility] Comment on above: Performed By: #### 2 284816, 4156423, 6214599, 5115895, 9734533, 67425566 ####[address] [address] CBC w/ Auto Diffon Erythrocyte distribution width (RBC) [Ratio] 13.7 % Normal 10.9-14.2 [facility] Comment on above: Performed By: #### 2 386075, 2630520, 3721162, 1117155, 6530974, 05221051 ####[address] [address] Hematocrit (Bld) [Volume fraction] 35.3 % Normal 34.0-46.0 [facility] Comment on above: Performed By: #### 2 171673, 8293367, 7273749, 0073435, 1411695, 23513094 ####[address] [address] Hemoglobin (Bld) [Mass/Vol] 12.0 g/dL Normal 12.0-16.0 [facility] Comment on above: Performed By: #### 2 976735, 5057748, 6030408, 1028839, 9355902, 16229497 ####[address] [address] MCH (RBC) [Entitic mass] 31.7 pg Normal 27.0-34.0 [facility] Comment on above: Performed By: #### 2 097758, 4077638, 6670947, 8439351, 7723134, 21258160 ####[address] [address] MCHC (RBC) [Mass/Vol] 33.9 g/dL Normal 31.4-36.0 [facility] Comment on above: Performed By: #### 2 779299, 1036191, 9722675, 2715852, 6578427, 59704645 ####[address] [address] MCV (RBC) [Entitic vol] 93.5 fL Normal 80.0-100.0 [facility] Comment on above: Performed By: #### 2 346292, 9955004, 0515861, 4454243, 7797357, 54709803 ####[address] [address] Platelet mean volume (Bld) [Entitic vol] 8.7 fL Normal 6.4-10.8 [facility] Comment on above: Performed By: #### 2 929738, 1877495, 2916302, 2279706, 1741479, 54296027 ####[facility] [address] [place] [address] Platelets (Bld) [#/Vol] 219.0 E9/L Normal 150.0-500.0 [facility] Comment on above: Performed By: #### 2 279105, 4611358, 1869555, 4014563, 9827323, 06867096 ####[facility] [address] [place] [address] RBC (Bld) [#/Vol] 3.8 E12/L Low 4.3-5.9 [facility] Comment on above: Performed By: #### 2 505839, 2097111, 9457313, 8291786, 2711814, 81241892 ####[facility] [address] [place] [address] WBC corrected for nucl RBC Auto (Bld) [#/Vol] 20.7 E9/L High 4.0-11.0 [facility] Comment on above: Result Comment: Slid e reviewed by BR. Performed By: #### 2 595453, 9903853, 9075051, 5453807, 2639119, 84022964 ####[facility] [address] [place] [address] CHEMISTRYOrdered By: SYSTEM SYSTEM on 10-13-2022 Anion gap [Moles/Vol] 7 mmol/L Normal 6 - 16 mEq/L [facility] Remisol Chloride [Moles/Vol] 109 mmol/L Normal 101 - 1 11 mmol/L [facility] CO2 [Moles/Vol] 23 mmol/L Normal 21 - 31 mmol/L [facility] Creatinine [Mass/Vol] 0.8 mg/dL Normal 0.5 - 1.3 mg/dL [facility] GFR/1.73 sq M.predicted among non-blacks MDRD (S/P/Bld) [Vol rate/Area] 76 mL/min/1.73 m2 Normal >=59mL/min/1. 73 m2 [facility] Chem S Potassium [Moles/Vol] 3.8 mmol/L Normal 3.5 - 5.3 mmol/L [facility] Sodium [Moles/Vol] 135 mmol/L Normal 135 - 145 mmol/L [facility] Urea nitrogen [Mass/Vol] 18 mg/dL Normal 5 - 21 mg/dL [facility] Consent for Anesthesiaon Consent for Anesthesia [id number] 2#1.00CD:127 Normal [facility] Creatinineon 10-13-2022 Creatinine [Mass/Vol] 0.8 mg/dL Normal 0.5-1.3 [facility] Comment on above: Performed By: #### 2 070879, 7889068, 5027582, 1233385, 1751879, 46862642 ####[facility] [address] [place] [address] Discharge Instructionson Discharge Instructions [id number]# 1.00CD:127 Normal [facility] Discharge Note-Nursingon Discharge Note-Nursing ARASH CORDERO :1945 Visit Date:10/12/2022 Inpatient Discharge Instructions Your Care Team Admitting Physician - Glenn Plunkett DO Referring Physician - Glenn Plunkett DO Reason for Your Visit OA RIGHT SHOULDER Your Diagnosis Rotator cuff arthropathy of right shoulder Tests Performed ABO/Rh Antibody Screen Automated Diff eGFR XR Shoulder Complete Right This Is Your Medications List acetaminophen-oxycod one (Percocet 5 mg-325 mg oral tablet) celecoxib (CeleBREX 100 mg Cap) cephalexin (Keflex 500 mg Cap) docusate (Colace 100 mg Cap) multivitamin [Image Removed: STOP]Stop taking these medications acetaminophen (Tylenol) ibuprofen Procedure History 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 Discharge Vitals Temperature (Oral) 36.5 ?C Heart Rate (Monitored) 82 Respiratory Rate 18 Blood Pressure 120/72 What to do next Instructions From Your Doctor Event Name Event Result Pending Diagnostic Test Results None Pharmacy Information Other: [facility] New Follow Up Appointments after Discharge Follow Up with Glenn Plunkett When: 10/25/2022 09:45 AM EDT Where: [address] [place] [address]- [facility] (1) Follow Up with [facility] NONE When: In 0 days Where: [place] Medications What How Much When Instructions Next Dose Unchanged acetaminophen-oxycod one (Percocet 5 mg-325 mg oral tablet) See instructions 1-2 tab(s) Oral q4hr Pickup at [facility]/pharmacy #[id number] 10/13/22 After 3:00pm Unchanged celecoxib (CeleBREX 100 mg Cap) 1 Capsules By Mouth 2 times a day as needed for for pain Pickup at [facility]/pharmacy #3471 10/13/22 @ 9pm Unchanged cephalexin (Keflex 500 mg Cap) 1 Capsules By Mouth Every 8 hours Duration: 7 Days Pickup at [facility]/pharmacy #3471 10/14/22 @ 9am Unchanged docusate (Colace 100 mg Cap) 1 Capsules By Mouth 2 times a day as needed for for constipation Pickup at [facility]/pharmacy #3471 10/13/22 @ 9pm Unchanged multivitamin 1 tab By Mouth Every day 10/14/22 @ 9am [id number] [address], [place] [id number] [phone] What When Comments Stop Taking acetaminophen (Tylenol) As needed for Pain 1-3 Stop Taking ibuprofen As needed for Pain 1-3 Test Results CBC BMP WBC: 20.7 E9/L High (10/13/22 04:39:00) BUN: 18 mg/dL (10/13/22 04:39:00) RBC: 3.8 E12/L Low (10/13/22 04:39:00) Creatinine: 0.8 mg/dL (10/13/22 04:39:00) HGB: 12 gm/dL (10/13/22 04:39:00) Sodium Lvl: 135 mmol/L (10/13/22 04:39:00) Hct: 35.3 % (10/13/22 04:39:00) Potassium Lvl: 3.8 mmol/L (10/13/22 04:39:00) MCV: 93.5 fL (10/13/22 04:39:00) Chloride: 109 mmol/L (10/13/22 04:39:00) MCH: 31.7 pg (10/13/22 04:39:00) CO2: 23 mmol/L (10/13/22 04:39:00) MCHC: 33.9 gm/dL (10/13/22 04:39:00) AGAP: 7 mEq/L (10/13/22 04:39:00) RDW: 13.7 % (10/13/22 04:39:00) Platelet: 219 E9/L (10/13/22 04:39:00) MPV: 8.7 fL (10/13/22 04:39:00) Allergies No Known Medication Allergies Education Materials [place], [place] [facility] DISCHARGE INSTRUCTIONS: SHOULDER REPLACEMENT MEDICATIONS You will be given a prescription for pain medication. This should be taken with food as needed. This may cause stomach upset, dizziness, and possible constipation. Please notify the office if you have any medication allergies to this type of medication or if any problems develop with the medication. DRESSING CHANGES Leave your bandage in place until your follow up visit. The bandage is waterproof, so you may shower it home. Any increase in pain, temperature over 101 degrees, redness, or drainage should be reported to the office prior to your first office visit. ACTIVITY You may continue to progress activity as comfortably tolerated with your opposite arm. You may begin to use your elbow, wrist, and hand as directed in physical therapy. You should only remove your sling for bathing and to perform range of motion exercises for the hand, wrist, and elbow. Do not actively move your shoulder Continue to ice the shoulder several times per day until follow up. ANESTHESIA PRECAUTIONS You should not operate a vehicle, automobile, bicycle or motorcycle, machinery, or power tools, make any important decisions, or drink alcohol for 24 hours. It may be beneficial to have a responsible adult remain with you for your first 24 hours after surgery. You may be drowsy and light-headed. DRIVING Driving is legal, however, if you are involved in an accident, you must be able to prove that you maintained full control of your vehicle. For this reason, it is advised that you do not drive until your strength returns. PROBLEMS You should notify the office for any persistent or heavy bleeding, temperature above 101, redness, swelling, or drainage from the operative si (more content not included)... Normal [facility] HEMATOLOGYOrdered By: SYSTEM SYSTEM on 10-13-2022 Basophils/100 WBC (Bld) 0.2 % Normal 0.0 - 2.0 % [facility] Basophils/Leukocytes Auto (Bld) [Pure # fraction] 0.0 E9/L Normal 0.0 - 0.2 E9/L [facility] Eosinophils/100 WBC (Bld) 0.0 % Normal 0.0 - 8.0 % [facility] Eosinophils/Leukocyte s Auto (Bld) [Pure # fraction] 0.0 E9/L Normal 0.0 - 0.5 E9/L [facility] Lymphocytes/100 WBC (Bld) 12.9 % Low 14.0 - 50.0 % [facility] Lymphocytes/Leukocyte s Auto (Bld) [Pure # fraction] 2.7 E9/L Normal 1.0 - 4.0 E9/L [facility] Monocytes/100 WBC (Bld) 6.3 % Normal 4.0 - 14.0 % [facility] Monocytes/Leukocytes Auto (Bld) [Pure # fraction] 1.3 E9/L High 0.2 - 1.0 E9/L [facility] Neutrophils/100 WBC (Bld) 80.6 % High 36.0 - 75.0 % [facility] Neutrophils/Leukocyte s Auto (Bld) [Pure # fraction] 16.7 E9/L High 2.0 - 7.5 E9/L [facility] HEMATOLOGYOrdered By: Alberto Samano on 10-13-2022 Erythrocyte distribution width (RBC) [Ratio] 13.7 % Normal 10.9 - 14.2 % [facility] Hematocrit (Bld) [Volume fraction] 35.3 % Normal 34.0 - 46.0 % [facility] Hemoglobin (Bld) [Mass/Vol] 12.0 g/dL Normal 12.0 - 16.0 gm/dL [facility] MCH (RBC) [Entitic mass] 31.7 pg Normal 27.0 - 34.0 pg [facility] MCHC (RBC) [Mass/Vol] 33.9 g/dL Normal 31.4 - 36.0 gm/dL [facility] MCV (RBC) [Entitic vol] 93.5 fL Normal 80.0 - 100.0 fL [facility] Platelet mean volume (Bld) [Entitic vol] 8.7 fL Normal 6.4 - 10.8 fL [facility] Platelets (Bld) [#/Vol] 219.0 E9/L Normal 150.0 - 500.0 E9/L [facility] RBC (Bld) [#/Vol] 3.8 E12/L Low 4.3 - 5.9 E12/L [facility] WBC corrected for nucl RBC Auto (Bld) [#/Vol] 20.7 E9/L High 4.0 - 11.0 E9/L [facility] Comment on above: Result Comment: Moses cabrera reviewed by Inpatient Clinical Summaryon 10-13-2022 Inpatient Clinical Summary [place] [address] Clinical Summary Person Information: Name: ARASH CORDERO Age: 77 Years : 1945 Sex: Female PCP: NONE, XXXX Marital Status: Race: Other Race Ethnicity: Non- or Language: Yemeni Visit Id: Visit Reason: OA RIGHT SHOULDER Speciality: Acuity: Enc Type: Observation Med Service: Surgery Arrival: 10/12/2022 05:32:52 Discharge: Dispo Type: Address: [address] [place] [id number] Provider Notes: Diagnosis: Rotator cuff arthropathy of right shoulder Problems No Problems Documented Smoking Status: Functional Status: Sensory Deficits: History of Falls: Mobility Assistance Prior to Admission: ADLs: Current Level of Assistance for Self-Care/Mobility: Cognitive Status: Allergies No Known Medication Allergies Measurements: Height: Weight: Blood Pressure: 120 mmHg / 72 mmHg BMI: Procedures Reverse total shoulder arthroplasty (10/12/2022) Immunizations No Immunizations Documented This Visit Final Med List: acetaminophen-oxycod one (Percocet 5 mg-325 mg oral tablet) 1-2 tab(s) Oral q4hr. Refills: 0. celecoxib (CeleBREX 100 mg Cap) 1 Capsules By Mouth 2 times a day as needed for pain. Refills: 0. cephalexin (Keflex 500 mg Cap) 1 Capsules By Mouth every 8 hours for 7 Days. Refills: 0. docusate (Colace 100 mg Cap) 1 Capsules By Mouth 2 times a day as needed for constipation. Refills: 0. multivitamin 1 tab By Mouth every day. Care Team Members: Attending Physician: Glenn Plunkett DO Consulting Physician: Referring Physician: Glenn Plunkett DO Follow up: With: Address: When: XXXX AYUSH GUEVARA With: Address: When: [place] [address] Paradial () 10/25/2022 9:45 AM Patient Education Information: Jenise Plunkett - Shoulder Replacement (Custom) [facility] Inpatient Patient Summaryon 10-13-2022 Inpatient Patient Summary [address] [address] Patient Discharge Instructions PERSON INFORMATION Name: ARASH CORDERO Date of : 1945 Current Date: 10/13/2022 12:29:31 PHYSICIANS Admitting Physician: Glenn Plunkett DO Primary Care Physician: KOKI GUEVARA PCP Phone Number: Comment: Discharge Diagnosis: Rotator cuff arthropathy of right shoulder Condition at Discharge: Improved ARASH CORDERO has been given the following list of follow-up instructions, prescriptions, and patient education materials: PATIENT FOLLOW-UP INFORMATION Diet: Discharge Activity: Discharge Restrictions: Wound Care Instructions: Remove Your Dressing In Days Call Your Doctor For: IF UNABLE TO CONTACT YOUR PHYSICIAN AND YOU FEEL IT IS AN EMERGENCY, GO TO THE NEAREST EMERGENCY ROOM OR CALL 911 Home Treatment: Devices/Equipment: Special Services: Additional Instructions: Primary Care Physician to provide the following pending test results: None Follow up: With: Address: When: XXXX AYUSH GUEVARA With: Address: When: [place] [address] Paradial () 10/25/2022 9:45 AM In the event that this physician does not participate in your insurance network, please consult with your insurance company to find a nearby participating provider. Comment: CONSUELO Heller ADELAIDA, have received the attached patient education materials/instructio ns and have verbalized understanding: Patient Signature Date Clinican/Nurse Signature Date HERE ARE THE MEDICATION CHANGES THAT OCCURRED DURING YOUR HOSPITAL STAY Medications to Continue with No Changes [id number], [address] [facility] [place] [id number], [phone] acetaminophen-oxycod one (Percocet 5 mg-325 mg oral tablet) 1-2 tab(s) Oral q4hr. Refills: 0. Last Dose: Next Dose: celecoxib (CeleBREX 100 mg Cap) 1 Capsules By Mouth 2 times a day as needed for pain. Refills: 0. Last Dose: Next Dose: cephalexin (Keflex 500 mg Cap) 1 Capsules By Mouth every 8 hours for 7 Days. Refills: 0. Last Dose: Next Dose: docusate (Colace 100 mg Cap) 1 Capsules By Mouth 2 times a day as needed for constipation. Refills: 0. Last Dose: Next Dose: Other Medications multivitamin 1 tab By Mouth every day. Last Dose: Next Dose: No Longer Take the Following Medications acetaminophen (Tylenol) as needed Pain 1-3. ibuprofen as needed Pain 1-3. Comment: MEDICATION LIST PROVIDED FOR YOU IS A LIST OF YOUR CURRENT MEDICATIONS. PLEASE CARRY THIS WITH YOU AT ALL TIMES. acetaminophen-oxycod one (Percocet 5 mg-325 mg oral tablet) 1-2 tab(s) Oral q4hr. Refills: 0. celecoxib (CeleBREX 100 mg Cap) 1 Capsules By Mouth 2 times a day as needed for pain. Refills: 0. cephalexin (Keflex 500 mg Cap) 1 Capsules By Mouth every 8 hours for 7 Days. Refills: 0. docusate (Colace 100 mg Cap) 1 Capsules By Mouth 2 times a day as needed for constipation. Refills: 0. multivitamin 1 tab By Mouth every day. Pharmacy Information: Other: [facility] Comment: PATIENT EDUCATION INFORMATION Instructions: [place], [place] [facility] DISCHARGE INSTRUCTIONS: SHOULDER REPLACEMENT MEDICATIONS You will be given a prescription for pain medication. This should be taken with food as needed. This may cause stomach upset, dizziness, and possible constipation. Please notify the office if you have any medication allergies to this type of medication or if any problems develop with the medication. DRESSING CHANGES Leave your bandage in place until your follow up visit. The bandage is waterproof, so you may shower it home. Any increase in pain, temperature over 101 degrees, redness, or drainage should be reported to the office prior to your first office visit. ACTIVITY You may continue to progress activity as comfortably tolerated with your opposite arm. You may begin to use your elbow, wrist, and hand as directed in physical therapy. You should only remove your sling for bathing and to perform range of motion exercises for the hand, wrist, and elbow. Do not actively move your shoulder Continue to ice the shoulder several times per day until follow up. ANESTHESIA PRECAUTIONS You should not operate a vehicle, automobile, bicycle or motorcycle, machinery, or power tools, make any important decisions, or drink alcohol for 24 hours. It may be beneficial to have a responsible adult remain with you for your first 24 hours after surgery. You may be drowsy and light-headed. DRIVING Driving is legal, however, if you are involved in an acci (more content not included)... [facility] Interdisciplinary Note - Mann e Manageron 10-13-2022 Interdisciplinary Note - Transfer Specialist CRM to room to discuss DC planning. Patient is awake, alert. She speaks limited Greek, family is in room and helps with what patient does not understand. Patient is from home with her spouse and daughter. Her Son is present and will transport at [place]. Patient verified PCP of Dr Zarate out of [place], verified home DME and insurance. Patient wanted a Shower Chair but not a covered expense by insurance, patient and family will purchase on own. Patient is here as an observation, Son signs Guevara form. Patient had right reverse total shoulder arthroplasty. Patient is pending rounds with Dr Plunkett. Patient will DC home later today. CRM provided contact info, white board updated. Denied DC needs. CRM following Normal [facility] Comment on above: Result Comment: Elec tronically Signed By: Dunia Hunt\.br\Date and Time Signed: 10/13/22 12:45 EDT IntraOperative Documentson 0 10-13-2022 IntraOperative Documents [id number]#1.00CD:127 Normal [facility] Lyteson 10-13-2022 Anion gap [Moles/Vol] 7 mmol/L Normal 6-16 [facility] Comment on above: Performed By: #### 2 [id number], [id number], 3506002, [id number], [id number], [id number] ####[facility] [address] [place] [address] Chloride [Moles/Vol] 109 mmol/L Normal 101-111 [facility] Comment on above: Performed By: #### 2 [id number], [id number], 0898474, [id number], [id number], [id number] ####[facility] [address] [place] [address] CO2 [Moles/Vol] 23 mmol/L Normal 21-31 [facility] Comment on above: Performed By: #### 2 [id number], [id number], 7797865, 2107889, 7557567, [id number] ####[facility] [address] [place] [address] Potassium [Moles/Vol] 3.8 mmol/L Normal 3.5-5.3 [facility] Comment on above: Performed By: #### 2 478073, 7459504, 1014685, 7406261, 0232965, [id number] ####[facility] [address] [place] [address] Sodium [Moles/Vol] 135 mmol/L Normal 135-145 [facility] Comment on above: Performed By: #### 2 [id number], 2734484, 7838425, 7903305, 3763218, [id number] ####[facility] [address] [place] [address] Main OR Intraoperative Recor don 10-13-2022 Main OR Intraoperative Record IntraOp Document Type FT Summary Primary Physician: Glenn Plunkett DO Finalized Date/Time: 10/13/22 16:03:05 Pt. Name: ARASH CORDERO/Sex: 1945 Female Med Rec #: [id number] Physician: Glenn Plunkett DO Financial #: [id number] Pt. Type: O Room/Bed: [facility] Admit/Disch: 10/12/22 05:32:52 - 10/13/22 13:12:00 Institution: Case Times FT Entry 1 Patient Times In Room 10/12/22 07:16:00 Out Room 10/12/22 09:16:00 Procedure Times Start 10/12/22 07:52:00 Stop 10/12/22 09:06:00 Anesthesia Times Start 10/12/22 07:16:00 Stop 10/12/22 09:16:00 Block Timeout w/ 10/12/22 07:04:00 Anesthesia Last Modified By: Jorden ROSARIO, Katelin Mata 10/12/22 09:16:41 General Comments: BLOCK DONE BY DR. GUDINO AT [id number], ASSISTED BY Iván CENTENO, ABRAHAM; HR= 84, O2= 99% ON ROOM AIR. PATIENT TOLERATED PROCEDURE WELL. -Chacorta GUDINO RN 10/13/22 Chart opened to review and send charges [facility] CSFA Case Attendance FT Entry 1 Entry 2 Entry 3 Case Attendee Rico KINCAID, Rj Plunkett DO, Glenn Norwood, David Mcgregor Role Performed TANK CAR MECHANIC Surgeon - Primary CABLE RIGGER/SA Time In 10/12/22 07:16:00 10/12/22 07:16:00 10/12/22 07:16:00 Time Out 10/12/22 09:16:00 10/12/22 08:59:00 10/12/22 08:50:00 Procedure SHOULDER TOTAL SHOULDER TOTAL SHOULDER TOTAL ARTHROPLASTY(Right) ARTHROPLASTY(Right) ARTHROPLASTY(Right) Comments Last Modified By: Jorden RN, Katelin Gudino RN, Katelin Gudino RN, Katelin Mata 10/12/22 Angela P 10/12/22 Angela P 10/12/22 09:16:42 09:16:42 09:16:42 Entry 4 Entry 5 Entry 6 Case Attendee Jorden ROSARIO, Amara Viramontes CABLE RIGGER, Kasie Mata Role Performed Residential Gas Heat Technician - Primary Residential Gas Heat Technician - Primary Scrub - Primary Time In 10/12/22 07:16:00 10/12/22 07:16:00 10/12/22 07:16:00 Time Out 10/12/22 09:16:00 10/12/22 09:16:00 10/12/22 09:16:00 Procedure SHOULDER TOTAL SHOULDER TOTAL SHOULDER TOTAL ARTHROPLASTY(Right) ARTHROPLASTY(Right) ARTHROPLASTY(Right) Comments PRECEPTOR Last Modified By: Jorden ROSARIO, Katelin Gudino RN, Katelin Gudino RN, Katelin Mata 10/12/22 Angela P 10/12/22 Angela P 10/12/22 09:16:42 09:16:42 09:16:42 Entry 7 Entry 8 Entry 9 Case Attendee Rosalee Rey, Gregorio Chan Role Performed Staff - Other Staff - Other Transporter Time In 10/12/22 07:16:00 10/12/22 07:16:00 06/14/23 07:16:00 Time Out 10/12/22 09:16:00 10/12/22 09:16:00 10/12/22 07:25:00 Procedure SHOULDER TOTAL SHOULDER TOTAL SHOULDER TOTAL ARTHROPLASTY(Right) ARTHROPLASTY(Right) ARTHROPLASTY(Right) Comments 2ND SCRUB 3RD SCRUB Last Modified By: Jorden ROSARIO, Katelin Gudino RN, Katelin Gudino RN, Katelin Mata 10/12/22 Angela Mata 10/12/22 Angela Mata 10/12/22 09:16:42 09:16:42 09:16:42 Entry 10 Case Attendee Ju Mcfadden Role Performed Scrub - Primary Time In 10/12/22 07:16:00 Time Out 10/12/22 09:16:00 Procedure SHOULDER TOTAL ARTHROPLASTY(Right) Comments ORIENTATION Last Modified By: Jorden ROSARIO, Katelin Mata 10/12/22 09:16:42 General Comments: HENRY PADILLA - ARTHNEAL REP PRESENT FOR CASE -VIsidoro GUDINO RNcoal chute worker Protocols FT Pre-Care Text: Implements protective measures prior to operative or invasive procedure, confirms identity before the operative or invasive procedure, verifies operative procedure, surgical site, and laterality Entry 1 Procedure(s) SHOULDER TOTAL Patient Identity Birthday, Blood Band, ARTHROPLASTY(Right) Verified (select at ID Band Check, Patient least 2): Participation Consents / H and P Anesthesia Consent, Operative Site Present Verified HandP, Surgery/Procedure Marking Verified Consent Surgical Site Yes Laterality Verified Yes Verified Procedure Verified Yes Correct Patient Yes Position Verified Availability Equipment, Implant, Prep Dry Yes Verified (If Medication Applicable) PreOp Antibiotic Yes Time Out Glenn Plunkett DO, Given Participants Rj Gómez CRNA, Boyer, James W, Ferrer RN, Waldemar Dorsey Kelsie E, Wilhelm CST, Candido Romano Sarah M, Asher Oconnell R Time Out Complete 10/12/22 07:51:00 Outcomes Met? Yes Last Modified By: Jorden ROSARIO, Katelin Mata 10/12/22 07:55:22 Post-Care Text: The patient is free from signs and symptoms of injury caused by extraneous objects Allergy Information FT Pre-Care Text: Verifies allergies Entry 1 Allergies Reviewed? Yes Allergies Reviewed Self/Patient With Outcomes Met? Yes Last Modified By: Jorden ROSARIO, Katelin Miller Esperanza 10/12/22 06:52:30 Post-Care Text: The patient received appropriate medication(s) safely administered during the perioperative period Surgical Procedures FT Entry 1 Procedure Description Procedure SHOULDER TOTAL Modifiers Right ARTHROPLASTY Surgeon Description RIGHT REVERESE TOTAL SHOULDER ARTHROPLASTY Primary Procedure Yes Primary Surgeon Glenn Plunkett DO Start 10/12/22 07:52:00 Stop 10/12/22 09:06:00 Anesthesia Type General Melissa (more content not included)... Normal [facility] Message from Medicareon 09-29 Message from Medicare [id number] #1.00CD:127 Normal [facility] Patient Education - Texton 0 10-13-2022 Patient Education - Text [place], [place] [facility] DISCHARGE INSTRUCTIONS: SHOULDER REPLACEMENT MEDICATIONS You will be given a prescription for pain medication. This should be taken with food as needed. This may cause stomach upset, dizziness, and possible constipation. Please notify the office if you have any medication allergies to this type of medication or if any problems develop with the medication. DRESSING CHANGES Leave your bandage in place until your follow up visit. The bandage is waterproof, so you may shower it home. Any increase in pain, temperature over 101 degrees, redness, or drainage should be reported to the office prior to your first office visit. ACTIVITY You may continue to progress activity as comfortably tolerated with your opposite arm. You may begin to use your elbow, wrist, and hand as directed in physical therapy. You should only remove your sling for bathing and to perform range of motion exercises for the hand, wrist, and elbow. Do not actively move your shoulder Continue to ice the shoulder several times per day until follow up. ANESTHESIA PRECAUTIONS You should not operate a vehicle, automobile, bicycle or motorcycle, machinery, or power tools, make any important decisions, or drink alcohol for 24 hours. It may be beneficial to have a responsible adult remain with you for your first 24 hours after surgery. You may be drowsy and light-headed. DRIVING Driving is legal, however, if you are involved in an accident, you must be able to prove that you maintained full control of your vehicle. For this reason, it is advised that you do not drive until your strength returns. PROBLEMS You should notify the office for any persistent or heavy bleeding, temperature above 101, redness, swelling, or drainage from the operative site, severe pain at the operative site, or the development of persistent vomiting. Glenn Plunkett DO [facility] [address] [place] [address] Reviewed: [facility] Progress Note-Physicianon Progress Note-Physician Patient: ARASH CORDERO Age: 77 years Sex: Female : 1945 Associated Diagnoses: None Author: Glenn Plunkett DO POD 1 s/p R reverse TSA pain controlled. leander po. family at bedside to interpret R UE: dressing dry, flex/ext elbow and wrist intact, makes fist, extends thumb, brisk cap refill WBC 20.7 Hgb 12 Hct 35.3 Plt 219 BMP WNL post op xrays reviewed yesterday. prosthesis in satisfactory position. Plan: - D/C home Objective Vital Signs 10/13/2022 11:17 EDT Heart Rate Monitored 82 bpm SpO2 94 % 10/13/2022 11:16 EDT Systolic Blood Pressure 120 mmHg Diastolic Blood Pressure 72 mmHg 10/13/2022 11:16 EDT Temperature Oral 36.5 DegC Normal [facility] Comment on above: Result Comment: Elec tronically Signed By: Glenn Plunkett DO\.br\Date and Time Signed: 10/13/22 12:31 EDT eGFRon 10-13-2022 GFR/1.73 sq M.predicted among non-blacks MDRD (S/P/Bld) [Vol rate/Area] 76 mL/min/1.73 m2 Normal >=59 [facility] Comment on above: Order Comment: Order added by Discern Expert. Result Comment: Lead Tank Mechanic imelda kidney disease could be indicated at eGFR's of less than 60 mL/min/1.73m2. Kidney failure is indicated at less than 15 mL/min/1.73m2. Performed By: #### 2 [id number], 2448515, 5877691, 3141402, 6249996, [id number] ####[facility] [address] [place] [address] ABO/Rhon 10-12-2022 ABO/Rh Positive Invalid Interpretation Code [facility] Comment on above: Performed By: #### 2 [id number], [id number], [id number], [id number] ####[address] [address] ABO/Rh History Checkon 10-12 ABO/Rh History Check Verified Hx Blood Type Normal [facility] Comment on above: Performed By: #### 2 259292, [id number], [id number], [id number] ####[place] [address] [place] [address] ABSCon 10-12-2022 ABSC Gel Interp Negative Normal [facility] Comment on above: Performed By: #### 2 511442, [id number], [id number], [id number] ####[address] [address] BLOOD BANKOrdered By: Sindy De La Torre on 10-12-2022 ABO/Rh Interp Positive Invalid Interpretation Code [facility] Subsection ABSC Gel Interp Negative (10/12/22 6:26 AM) Normal [facility] BB Subsection Blood Bank ID#on 10-12-2022 BBID# [id number] Invalid Interpretation Code [facility] Comment on above: Performed By: #### 2 655344, [id number], [id number], [id number] ####[facility] [address] [place] [address] Consent for Procedure/Surger yon 10-12-2022 Consent for Procedure/Surgery [id number]# 1.00CD:127 Normal [facility] Consent for Treatmenton 09-29 Consent for Treatment [id number] #1.00CD:127 Normal [facility] H&P Updateon 10-12-2022 H&P Update [id number]# 1.00CD:127 Normal [facility] Main OR PACU I Recordon 09-29 Main OR PACU I Record PACU Phase I Document Type FT Summary Primary Physician: Glenn Plunkett DO Finalized Date/Time: 10/12/22 10:55:35 Pt. Name: ARASH CORDERO/Sex: 1945 Female Med Rec #: [id number] Physician: Glenn Plunkett DO Financial #: [id number] Pt. Type: A Room/Bed: [facility] Admit/Disch: 10/12/22 05:32:52 - Institution: Case Times PACU I FT Pre-Care Text: Identifies barriers to communication and implements measures to provide psychological support Develops individualized plan of care, and ensures continuity of care Maintains patient's dignity and privacy, and maintains patient confidentiality Identifies and reports philosophical, cultural, and spiritual beliefs and values Identifies individual values and wishes concerning care Implements aseptic technique, and administers prescribed antibiotic therapy and immunizing agents as ordered Evaluates postoperative tissue perfusion Implements thermoregulation measures, and monitors body temperature Evaluates postoperative respiratory status Evaluates postoperative cardiac status Evaluates postoperative neurological status Assesses pain control, collaborated in initiating patient-controlled analgesia and implements alternative methods of pain control Verifies allergies, administers prescribed medications and solutions, evaluates response to medications Entry 1 In PACU I 10/12/22 09:19:00 Discharge from PACU 10/12/22 10:35:00 I Outcomes Met? Yes Last Modified By: Nicolasa Johnson RN 10/12/22 10:55:25 Post-Care Text: The patient demonstrates knowledge of the expected response to the operative or invasive procedure The patient's care is consistent with the individualized perioperative plan of care The patient's right to privacy is maintained The patient's value system, lifestyle, ethnicity, and culture are considered, respected, and incorporated into the perioperative plan of care The patient participates in decisions affecting his or her perioperative plan of care The patient is free from signs and symptoms of infection The patient has wound/tissue perfusion consistent with or improved from baseline levels established preoperatively The patient is at or returning to normothermia at the conclusion of the immediate postoperative period The patient's respiratory function is consistent with or improved from baseline levels established preoperatively The patient's cardiovascular status is consistent with or improved from baseline levels established preoperatively The patient's cardiovascular status is consistent with or improved from baseline levels established preoperatively The patient demonstrates and/or reports adequate pain control throughout the perioperative period The patient received appropriate medication(s), safely administered during the perioperative period Acuity Level PACU I FT Entry 1 Start Time 10/12/22 09:19:00 Stop Time 10/12/22 10:35:00 Acuity Level Acuity Level I Last Modified By: Nicolasa Johnson RN 10/12/22 10:55:33 Finalized By: Nicolasa Johnson RN Document Signatures Signed By: Nicolasa Johnson RN 10/12/22 10:17 Nicolasa Johnson RN 10/12/22 10:55 [facility] Main OR Preoperative Recordo n 10-12-2022 Main OR Preoperative Record PreOp Document Type FT Summary Primary Physician: Glenn Plunkett DO Finalized Date/Time: 10/12/22 07:56:41 Pt. Name: ARASH CORDERO /Sex: 1945 Female Med Rec #: [id number] Physician: Glenn Plunkett DO Financial #: [id number] Pt. Type: A Room/Bed: [place] [address] Admit/Disch: 10/12/22 05:32:52 - Institution: Case Times PreOp FT Pre-Care Text: Verifies consent for planned procedure, identifies individual values and wishes concerning care, includes family members in perioperative teaching Entry 1 Patient Times. In Pre Surgery 10/12/22 05:45:00 Out Pre Surgery 10/12/22 07:01:00 Outcomes Met? Yes Last Modified By: Katelin Gudino RN 10/12/22 07:56:39 Post-Care Text: The patient participates in decisions affecting his or her perioperative plan of care Finalized By: Katelin Gudino RN Document Signatures Signed By: Katelin Gudino RN 10/12/22 07:56 [facility] Operative Reporton Operative Report Patient: ARASH CORDERO Age: 77 years Sex: Female : 1945 Associated Diagnoses: None Author: Glenn Plunkett DO DATE OF SURGERY: 10/12/2022 SURGEON: Glenn Plunkett D.O. CUPOLA MAN: Calvin Norwood CFA PREOPERATIVE DIAGNOSIS: Rotator cuff tear arthropathy, right shoulder POSTOPERATIVE DIAGNOSIS: Rotator cuff tear arthropathy, right shoulder OPERATION: Right reverse total shoulder arthroplasty ANESTHESIA: General with a regional block ANESTHESIOLOGIST: Jay Gudino DO and Rj Gómez CRNA IMPLANTS USED: [employer] Revers System 1. 24 mm 20 degree full augment baseplate, 20 mm central post, four peripheral screws measuring 4.5 mm x 28 mm and 24 mm nonlocking, 5.5 mm x 16 and 20 mm locking 2. 33 +4 lateralized Glenosphere 3. +6 humeral insert 4. Revers size 9 stem with 33 +2 right Suturecup OPERATIVE INDICATIONS: Arash is a 77-year-old [id number] female who has significant pain in the right shoulder despite conservative measures. Her symptoms interfere with her activities of daily living, ability to sleep at night, and quality of life. She agreed to proceed with the above procedure after a discussion of the risks, benefits, complications, alternatives, and expectations. Please see office notes for further details. Presurgical planning was performed with the [employer] software. PROCEDURE: The correct operative site was identified and marked in the preoperative holding area. The patient was administered intravenous antibiotics in accordance with SCIP Protocol. She was transported to the Regional Block Room and administered a regional anesthetic nerve block by the anesthesiologist. I requested the regional nerve block to assist with intraoperative and postoperative pain control. She was transported to the Operating Room and placed supine on the operating room table. She was administered a general anesthetic. After adequate anesthesia was obtained, she was placed into the beach chair position with all bony prominences well padded and the head secured in the padded elliott. The head of the table was elevated approximately 45 degrees. She was administered one gram of Tranexamic acid intravenously about 15 minutes prior to the incision. Pneumatic sequential stockings were applied to the legs. The right upper extremity was then prepped and draped in the usual sterile fashion. The extremity was draped free and placed onto a padded sterile son stand. A deltopectoral approach was utilized. An incision was made beginning at the coracoid process and extended distally towards the deltoid insertion. Medial and lateral skin flaps were developed. Hemostasis achieved along the way with Bovie electrocautery and Aquamantys. The cephalic vein was located. The deltopectoral interval was identified and opened. The cephalic vein was retracted laterally. Perforating veins into the pectoralis were cauterized with the Bovie. Deltoid adhesions within the subacromial space were released with a clancy. Pike retractor was then placed to retract the deltoid. The conjoined tendon was identified and the clavipectoral fascia was opened just lateral to the conjoined tendon. The coracoacromial ligament was identified and the rotator interval was then opened. The bicipital sheath was opened and the biceps tendon was absent. The anterior circumflex vessels were cauterized with the Bovie and Aquamantys. A Darrauch retractor was placed into the glenohumeral joint and used to help apply tension to the subscapularis. The subscapularis and anterior capsule were released from the proximal humerus with the bovie. #2 fiberwire tag suture was placed into the subscapularis. The arm was extended, adducted, and externally rotated to deliver the proximal humerus. The 135 degree resection guide was then placed against the proximal humerus and a Bovie was used to create a narinder at the humeral head for the position of the desired cut. The humeral head was then freehand cut with an oscillating saw. Metal protection cap was placed onto the cut humeral surface. Attention was then turned to preparation of the glenoid. A posterior retractor was placed to retract the humeral head. Eduardo retractor placed posterosuperiorly. The axillary nerve was palpated along the anterior inferior glenoid and this was protected during release of the anterior capsule. An anterior glenoid retractor was then placed. Labral tissue was excised circumferentially. The VIP guide was used to place the central pin. The guide was then removed, position of the guide pin was checked with visual inspection and compared to the printed 5D model. The wedge augment checking device was placed against the glenoid surface and a bovie was used to narinder the area of maximum deficiency. The reamer was then placed overtop of the central pin and the glenoid surface was reamed. The trial baseplate was placed onto the glenoid face to determine (more content not included)... [facility] Comment on above: Result Comment: Elec tronically Signed By: Glenn Plunkett DO\Isidorobr\Date and Time Signed: 10/12/22 11:48 EDT Operative Report Patient: ARASH CORDERO Age: 77 years Sex: Female : 1945 Associated Diagnoses: None Author: Charles Gudino DO Procedure Nerve Block Block Type: Interscalene block. Laterality: Right. Informed consent for anesthesia management: Anesthesia options discussed including nerve block, Description of the procedure, risks, benefits, and alternatives was provided, The patient's questions were addressed. Time out: Confirmed correct patient, procedure and site. Time: Date/Time 10/12/2022 06:55:00. Indication: Block for postoperative pain management as requested by surgeon. Anesthesia Method: IV Sedation with monitored anesthesia care, The patient remained awake and able to interact in a meaningful way throughout the procedure. Preparation: The patient was placed in the following position Supine, Continuous pulse oximetry applied, Using maximal sterile barrier technique per current [facility] guidelines including hand hygeine, Guidance (Ultrasound used to identify anatomical landmarks, Using sterile gel and probe covers, Permanent image retained), The site was prepped with ChloraPrep. Procedure: Anesthetic Agent (Bupivacaine, 0.5% Ropivacaine, 4mg Decadron), Catheter size (21 guage, Neuromonitor utilzied and amps brought down to 0.4mAmps to ensure no intraneural injection.), Catheter length 100 mm, Needle was inserted without pain or parasthesia in the conscious patient, Number of attempts 1, Negative attempt at aspiration for blood, Medial and lateral spread of the anesthestic was observed, Periodic negative attempts at aspiration of blood were made as the local was injected, No pain or parathesia were elicited with injection of the anesthetic in the conscious patient, It was idetified that the correct anesthetic agent was administered to the correct site. Complications: None, The patient tolerated the procedure as expected. [facility] Comment on above: Result Comment: Elec tronically Signed By: Charles Gudino DO\.br\Date and Time Signed: 10/12/22 11:34 EDT Outpatient Surgery Discharge Instructionon 10-12-2022 Outpatient Surgery Discharge Instruction [address] [address] Patient Discharge Instructions PERSON INFORMATION Name: ARASH CORDERO Date of : 1945 Current Date: 10/12/2022 06:57:23 PHYSICIANS Admitting Physician: Glenn Plunkett DO Discharge Diagnosis: Rotator cuff arthropathy of right shoulder ARASH CORDERO has been given the following list of follow-up instructions, prescriptions, and patient education materials: IF UNABLE TO CONTACT YOUR PHYSICIAN AND YOU FEEL IT IS AN EMERGENCY, GO TO THE NEAREST EMERGENCY ROOM OR CALL 911 I, ARASH CORDERO, have received the attached patient education materials/instructio ns and have verbalized understanding: May we do a follow up call? Yes No I was present when discharge instructions were given Patient Signature Date Clinican/Nurse Signature Date Follow up: With: Address: When: Glenn Plunkett [address] [place] [address] [phone] Business (1) 10/25/2022 9:45 AM Pharmacy Information: You may receive a survey from Layla Serna asking you to rate your care experience. Your feedback is important and will help us understand what we do well and how we can improve the quality of care we provide to you, your loved ones and our community. It?s an honor to serve you. Thank you for choosing [facility] HERE ARE THE MEDICATION CHANGES THAT OCCURRED DURING YOUR HOSPITAL STAY Medications to Continue with No Changes [id number], [address], [place] [id number], [phone] acetaminophen-oxycod one (Percocet 5 mg-325 mg oral tablet) 1-2 tab(s) Oral q4hr. Refills: 0. celecoxib (CeleBREX 100 mg Cap) 1 Capsules By Mouth 2 times a day as needed for pain. Refills: 0. cephalexin (Keflex 500 mg Cap) 1 Capsules By Mouth every 8 hours for 7 Days. Refills: 0. docusate (Colace 100 mg Cap) 1 Capsules By Mouth 2 times a day as needed for constipation. Refills: 0. Other Medications acetaminophen (Tylenol) as needed Pain 1-3. ibuprofen as needed Pain 1-3. multivitamin 1 tab By Mouth every day. PATIENT EDUCATION INFORMATION Instructions: [place], [place] [facility] DISCHARGE INSTRUCTIONS: SHOULDER REPLACEMENT MEDICATIONS You will be given a prescription for pain medication. This should be taken with food as needed. This may cause stomach upset, dizziness, and possible constipation. Please notify the office if you have any medication allergies to this type of medication or if any problems develop with the medication. DRESSING CHANGES Leave your bandage in place until your follow up visit. The bandage is waterproof, so you may shower it home. Any increase in pain, temperature over 101 degrees, redness, or drainage should be reported to the office prior to your first office visit. ACTIVITY You may continue to progress activity as comfortably tolerated with your opposite arm. You may begin to use your elbow, wrist, and hand as directed in physical therapy. You should only remove your sling for bathing and to perform range of motion exercises for the hand, wrist, and elbow. Do not actively move your shoulder Continue to ice the shoulder several times per day until follow up. ANESTHESIA PRECAUTIONS You should not operate a vehicle, automobile, bicycle or motorcycle, machinery, or power tools, make any important decisions, or drink alcohol for 24 hours. It may be beneficial to have a responsible adult remain with you for your first 24 hours after surgery. You may be drowsy and light-headed. DRIVING Driving is legal, however, if you are involved in an accident, you must be able to prove that you maintained full control of your vehicle. For this reason, it is advised that you do not drive until your strength returns. PROBLEMS You should notify the office for any persistent or heavy bleeding, temperature above 101, redness, swelling, or drainage from the operative site, severe pain at the operative site, or the development of persistent vomiting. Glenn Plunkett DO [facility] [address] [place] [address] Reviewed: Medication Leaflets: [facility] Proceduralon 10-12-2022 Procedural Patient: ARASH CORDERO Age: 77 years Sex: Female : 1945 Associated Diagnoses: None Author: Charles Gudino DO Preoperative Information Anesthesia history: Patient history: None. Family history+: None. Anesthesia results Informed consent: Signed by patient. Including risks, benefits, and alternatives related to the: Anesthetic plan, Postoperative pain management plan. Re-evaluation prior to induction: Charles Gudino DO. Health Status Allergies: Allergic Reactions (Selected) No Known Medication Allergies, Allergies (1) Active Reaction No Known Medication Allergies None Documented Current medications: (Selected) Inpatient Medications Ordered Colace 100 mg Cap: 100 mg = 1 cap(s), Cap, Oral, BID, Routine, Start date 10/12/22 9:00:00 EDT, 10/12/22 6:54:00 EDT Dulcolax 5 mg Tab-EC: 10 mg = 2 tab(s), Tab-EC, Oral, Daily PRN Constipation, Routine, Start date 10/14/22 6:54:00 EDT, 10/14/22 6:54:00 EDT Lactated Ringers IV Franny 1000 mL 1,000 mL: 1,000 mL, IV, 150 mL/hr, Routine, Start date 10/12/22 6:00:00 EDT, 6.7 hour(s), Total volume (mL): 1,000, 65.6 kg, 1.68, m2 Lactated Ringers IV Franny 1000 mL 1,000 mL: 1,000 mL, IV, 80 mL/hr, Routine, Start date 10/12/22 6:54:00 EDT, 12.5 hour(s), Total volume (mL): 1,000, 65.6 kg, 1.68, m2 Lovenox 40 mg/0.4 mL SC Franny: 40 mg = 0.4 mL, Injection, SubCutaneous, Daily for 10 day(s), Stop date 10/23/22 8:59:00 EDT, Routine, Start date 10/13/22 9:00:00 EDT, Start in AM postop day 1, 10/13/22 9:00:00 EDT Milk of Magnesia 8% Susp-Oral: 30 mL, Susp-Oral, Oral, BID PRN Constipation, Routine, Start date 10/12/22 6:54:00 EDT Nozin 62% Bottle - POSTOP: 6 drop(s), Soln-Nasal, Nasal, BID, Routine, Start date 10/12/22 9:00:00 EDT Pantoprazole [address] Tab: 40 mg = 1 tab(s), Tab-DR, Oral, Daily, Routine, Start date 10/12/22 9:00:00 EDT, 10/12/22 6:54:00 EDT Vitamin C 500 mg Tab: 500 mg = 1 tab(s), Tab, Oral, BIDWM, Routine, Start date 10/12/22 8:00:00 EDT, 10/12/22 6:54:00 EDT Zofran 4 mg/2 mL Injection: 4 mg = 2 mL, Injection, IV Push, q6hr PRN Nausea/Vomiting, Routine, Start date 10/12/22 6:54:00 EDT, 10/12/22 6:54:00 EDT acetaminophen 325 mg Tab: 975 mg = 3 tab(s), Tab, Oral, q6hr for 3 dose(s), Stop date 10/13/22 0:59:00 EDT, Routine, Start date 10/12/22 7:00:00 EDT, 10/12/22 6:54:00 EDT cefazolin additive + Sodium Chloride 0.9% intravenous solution 50 mL: 2 gram = 1 EA, IV Piggyback, q8hr for 2 dose(s), Stop date 10/12/22 22:59:00 EDT, Routine, Start date 10/12/22 7:00:00 EDT, 100 mL/hr, Infuse over 30 minute(s), 10/12/22 6:54:00 EDT cefazolin additive + Sodium Chloride 0.9% intravenous solution 50 mL: 2 gram = 1 EA, Powder-Inj, IV Piggyback, PREOP, Routine, Start date 10/12/22 6:00:00 EDT, 100 mL/hr, Infuse over 30 minute(s) dexamethasone 4 mg/mL Inj 1 mL: 4 mg = 1 mL, Injection, IV Push, Once, Stop date 10/11/22 17:00:00 EDT, Routine, Start date 10/11/22 17:00:00 EDT, 10/11/22 17:00:00 EDT ferrous sulfate 325 mg Tab: 325 mg = 1 tab(s), Tab, Oral, BIDWM, Routine, Start date 10/12/22 8:00:00 EDT, 10/12/22 6:54:00 EDT ketorolac 15 mg/mL Inj: 15 mg = 1 mL, Injection, IV Push, q6hr for 3 dose(s), Stop date 10/13/22 9:59:00 EDT, Routine, Start date 10/12/22 16:00:00 EDT, 10/12/22 16:00:00 EDT morphine 2 mg/mL Inj: 2 mg = 1 mL, Injection, IV, q4hr PRN Pain 8-10 for 5 day(s), Stop date 10/17/22 6:53:00 EDT, Routine, Start date 10/12/22 6:54:00 EDT, 10/12/22 6:54:00 EDT oxyCODONE 5 mg Tab: 10 mg = 2 tab(s), Tab, Oral, q4hr PRN Pain 8-10 for 5 day(s), Stop date 10/17/22 6:53:00 EDT, Routine, Start date 10/12/22 6:54:00 EDT, 10/12/22 6:54:00 EDT oxyCODONE 5 mg Tab: 5 mg = 1 tab(s), Tab, Oral, q4hr PRN Pain 8-10 for 5 day(s), Stop date 10/17/22 6:53:00 EDT, Routine, Start date 10/12/22 6:54:00 EDT, 10/12/22 6:54:00 EDT tranexamic acid additive + premix generic diluent 100 mL: 1,000 mg = 100 mL, Soln-IV, IV Piggyback, Once, Stop date 10/12/22 6:00:00 EDT, Routine, Start date 10/12/22 6:00:00 EDT, 200 mL/hr, Infuse over 30 minute(s) Prescriptions Prescribed CeleBREX 100 mg Cap: 100 mg = 1 cap(s), Oral, BID, PRN for pain, # 60 cap(s), Refills(s) 0, Pharmacy: [id number], 155, cm, 09/28/22 5:33:00 EDT, Height/Length Dosing, 65.6, kg, 09/28/22 5:33:00 EDT, Weight Dosing Colace 100 mg Cap: 100 mg = 1 cap(s), Oral, BID, PRN for constipation, # 20 cap(s), Refills(s) 0, Pharmacy: [id number], 155, cm, 09/28/22 5:33:00 EDT, Height/Length Dosing, 65.6, kg, 09/28/22 5:33:00 EDT, Weight Dosing Keflex 500 mg Cap: 500 mg = 1 cap(s), Oral, q8hr, X 7 day(s), # 21 cap(s), Refills(s) 0, Pharmacy: [id number], 155, cm, 09/28/22 5:33:00 EDT, Height/Length Dosing, 65.6, kg, 09/28/22 5:33:00 EDT, Weight Dosing Percocet 5 mg-325 mg oral tablet: See Instructions, 40 tab(s), Refill(s) 0, 1-2 tab(s) Oral q4hr, [id number], 155, cm, 09/28/22 5:33:00 EDT, Height/Length Dosing, 65.6, kg, 09/28/22 5:33:00 EDT, Weight Dosing Documented Medications D (more content not included)... [facility] Progress Note-Physicianon Progress Note-Physician Patient: ARASH CORDERO Age: 77 years Sex: Female : 1945 Associated Diagnoses: None Author: Charles Gudino DO Postoperative Information Postoperative disposition: Postoperative disposition: To PACU. Anesthetic utilized: General. Health Status Allergies: Allergic Reactions (Selected) No Known Medication Allergies Current medications: (Selected) Inpatient Medications Ordered Colace 100 mg Cap: 100 mg = 1 cap(s), Cap, Oral, BID, Routine, Start date 10/12/22 9:00:00 EDT, 10/12/22 6:54:00 EDT Dulcolax 5 mg Tab-EC: 10 mg = 2 tab(s), Tab-EC, Oral, Daily PRN Constipation, Routine, Start date 10/14/22 6:54:00 EDT, 10/14/22 6:54:00 EDT Lactated Ringers IV Franny 1000 mL 1,000 mL: 1,000 mL, IV, 150 mL/hr, Routine, Start date 10/12/22 6:00:00 EDT, 6.7 hour(s), Total volume (mL): 1,000, 65.6 kg, 1.68, m2 Lactated Ringers IV Franny 1000 mL 1,000 mL: 1,000 mL, IV, 80 mL/hr, Routine, Start date 10/12/22 6:54:00 EDT, 12.5 hour(s), Total volume (mL): 1,000, 65.6 kg, 1.68, m2 Lovenox 40 mg/0.4 mL SC Franny: 40 mg = 0.4 mL, Injection, SubCutaneous, Daily for 10 day(s), Stop date 10/23/22 8:59:00 EDT, Routine, Start date 10/13/22 9:00:00 EDT, Start in AM postop day 1, 10/13/22 9:00:00 EDT Milk of Magnesia 8% Susp-Oral: 30 mL, Susp-Oral, Oral, BID PRN Constipation, Routine, Start date 10/12/22 6:54:00 EDT Nozin 62% Bottle - POSTOP: 6 drop(s), Soln-Nasal, Nasal, BID, Routine, Start date 10/12/22 9:00:00 EDT Pantoprazole [address] Tab: 40 mg = 1 tab(s), Tab-DR, Oral, Daily, Routine, Start date 10/12/22 9:00:00 EDT, 10/12/22 6:54:00 EDT Vitamin C 500 mg Tab: 500 mg = 1 tab(s), Tab, Oral, BIDWM, Routine, Start date 10/12/22 8:00:00 EDT, 10/12/22 6:54:00 EDT Zofran 4 mg/2 mL Injection: 4 mg = 2 mL, Injection, IV Push, q6hr PRN Nausea/Vomiting, Routine, Start date 10/12/22 6:54:00 EDT, 10/12/22 6:54:00 EDT acetaminophen 325 mg Tab: 975 mg = 3 tab(s), Tab, Oral, q6hr for 3 dose(s), Stop date 10/13/22 0:59:00 EDT, Routine, Start date 10/12/22 7:00:00 EDT, 10/12/22 6:54:00 EDT cefazolin additive + Sodium Chloride 0.9% intravenous solution 50 mL: 2 gram = 1 EA, IV Piggyback, q8hr for 2 dose(s), Stop date 10/12/22 22:59:00 EDT, Routine, Start date 10/12/22 7:00:00 EDT, 100 mL/hr, Infuse over 30 minute(s), 10/12/22 6:54:00 EDT dexamethasone 4 mg/mL Inj 1 mL: 4 mg = 1 mL, Injection, IV Push, Once, Stop date 10/11/22 17:00:00 EDT, Routine, Start date 10/11/22 17:00:00 EDT, 10/11/22 17:00:00 EDT ferrous sulfate 325 mg Tab: 325 mg = 1 tab(s), Tab, Oral, BIDWM, Routine, Start date 10/12/22 8:00:00 EDT, 10/12/22 6:54:00 EDT ketorolac 15 mg/mL Inj: 15 mg = 1 mL, Injection, IV Push, q6hr for 3 dose(s), Stop date 10/14/22 3:59:00 EDT, Routine, Start date 10/12/22 16:00:00 EDT, 10/12/22 16:00:00 EDT morphine 2 mg/mL Inj: 2 mg = 1 mL, Injection, IV, q4hr PRN Pain 8-10 for 5 day(s), Stop date 10/17/22 6:53:00 EDT, Routine, Start date 10/12/22 6:54:00 EDT, 10/12/22 6:54:00 EDT oxyCODONE 5 mg Tab: 10 mg = 2 tab(s), Tab, Oral, q4hr PRN Pain 8-10 for 5 day(s), Stop date 10/17/22 6:53:00 EDT, Routine, Start date 10/12/22 6:54:00 EDT, 10/12/22 6:54:00 EDT oxyCODONE 5 mg Tab: 5 mg = 1 tab(s), Tab, Oral, q4hr PRN Pain 8-10 for 5 day(s), Stop date 10/17/22 6:53:00 EDT, Routine, Start date 10/12/22 6:54:00 EDT, 10/12/22 6:54:00 EDT Prescriptions Prescribed CeleBREX 100 mg Cap: 100 mg = 1 cap(s), Oral, BID, PRN for pain, # 60 cap(s), Refills(s) 0, Pharmacy: [id number], 155, cm, 09/28/22 5:33:00 EDT, Height/Length Dosing, 65.6, kg, 09/28/22 5:33:00 EDT, Weight Dosing Colace 100 mg Cap: 100 mg = 1 cap(s), Oral, BID, PRN for constipation, # 20 cap(s), Refills(s) 0, Pharmacy: [id number], 155, cm, 09/28/22 5:33:00 EDT, Height/Length Dosing, 65.6, kg, 09/28/22 5:33:00 EDT, Weight Dosing Keflex 500 mg Cap: 500 mg = 1 cap(s), Oral, q8hr, X 7 day(s), # 21 cap(s), Refills(s) 0, Pharmacy: [id number], 155, cm, 09/28/22 5:33:00 EDT, Height/Length Dosing, 65.6, kg, 09/28/22 5:33:00 EDT, Weight Dosing Percocet 5 mg-325 mg oral tablet: See Instructions, 40 tab(s), Refill(s) 0, 1-2 tab(s) Oral q4hr, [id number], 155, cm, 09/28/22 5:33:00 EDT, Height/Length Dosing, 65.6, kg, 09/28/22 5:33:00 EDT, Weight Dosing Documented Medications Documented Tylenol: PRN Pain 1-3, Refills(s) 0, Pain ibuprofen: PRN Pain 1-3, Pain multivitamin: 1 tab, Oral, Daily, Refill(s) 0, Prophylaxis, Home Medications (7) Active CeleBREX 100 mg Cap 100 mg = 1 cap(s), PRN, Oral, BID Colace 100 mg Cap 100 mg = 1 cap(s), PRN, Oral, BID ibuprofen , PRN Keflex 500 mg Cap 500 mg = 1 cap(s), Oral, q8hr multivitamin 1 tab, Oral, Daily Percocet 5 mg-325 mg oral tablet See Instructions Tylenol , PRN Problem list: No problem items selected or recorded. Physical Examination Vital Signs 10/12/2022 10:37 EDT Heart Rate Monitored 81 bpm SpO2 95 % 10/12/2022 10:37 EDT Temperature Temporal Artery 36.8 DegC Systolic Blood Pressure 138 m (more content not included)... [facility] Comment on above: Result Comment: Elec tronically Signed By: Charles Gudino DO\.br\Date and Time Signed: 10/12/22 11:36 EDT Progress Note-Physician Patient: ARASH CORDERO Age: 77 years Sex: Female : 1945 Associated Diagnoses: None Author: Charles Gudino DO Preoperative Information Anesthesia history: Patient history: None. Family history+: None. Anesthesia results Informed consent: Signed by patient. Including risks, benefits, and alternatives related to the: Anesthetic plan, Postoperative pain management plan. Re-evaluation prior to induction: Charles Gudino DO. Health Status Allergies: Allergic Reactions (Selected) No Known Medication Allergies, Allergies (1) Active Reaction No Known Medication Allergies None Documented Current medications: (Selected) Inpatient Medications Ordered Colace 100 mg Cap: 100 mg = 1 cap(s), Cap, Oral, BID, Routine, Start date 10/12/22 9:00:00 EDT, 10/12/22 6:54:00 EDT Dulcolax 5 mg Tab-EC: 10 mg = 2 tab(s), Tab-EC, Oral, Daily PRN Constipation, Routine, Start date 10/14/22 6:54:00 EDT, 10/14/22 6:54:00 EDT Lactated Ringers IV Franny 1000 mL 1,000 mL: 1,000 mL, IV, 150 mL/hr, Routine, Start date 10/12/22 6:00:00 EDT, 6.7 hour(s), Total volume (mL): 1,000, 65.6 kg, 1.68, m2 Lactated Ringers IV Franny 1000 mL 1,000 mL: 1,000 mL, IV, 80 mL/hr, Routine, Start date 10/12/22 6:54:00 EDT, 12.5 hour(s), Total volume (mL): 1,000, 65.6 kg, 1.68, m2 Lovenox 40 mg/0.4 mL SC Franny: 40 mg = 0.4 mL, Injection, SubCutaneous, Daily for 10 day(s), Stop date 10/23/22 8:59:00 EDT, Routine, Start date 10/13/22 9:00:00 EDT, Start in AM postop day 1, 10/13/22 9:00:00 EDT Milk of Magnesia 8% Susp-Oral: 30 mL, Susp-Oral, Oral, BID PRN Constipation, Routine, Start date 10/12/22 6:54:00 EDT Nozin 62% Bottle - POSTOP: 6 drop(s), Soln-Nasal, Nasal, BID, Routine, Start date 10/12/22 9:00:00 EDT Pantoprazole [address] Tab: 40 mg = 1 tab(s), Tab-DR, Oral, Daily, Routine, Start date 10/12/22 9:00:00 EDT, 10/12/22 6:54:00 EDT Vitamin C 500 mg Tab: 500 mg = 1 tab(s), Tab, Oral, BIDWM, Routine, Start date 10/12/22 8:00:00 EDT, 10/12/22 6:54:00 EDT Zofran 4 mg/2 mL Injection: 4 mg = 2 mL, Injection, IV Push, q6hr PRN Nausea/Vomiting, Routine, Start date 10/12/22 6:54:00 EDT, 10/12/22 6:54:00 EDT acetaminophen 325 mg Tab: 975 mg = 3 tab(s), Tab, Oral, q6hr for 3 dose(s), Stop date 10/13/22 0:59:00 EDT, Routine, Start date 10/12/22 7:00:00 EDT, 10/12/22 6:54:00 EDT cefazolin additive + Sodium Chloride 0.9% intravenous solution 50 mL: 2 gram = 1 EA, IV Piggyback, q8hr for 2 dose(s), Stop date 10/12/22 22:59:00 EDT, Routine, Start date 10/12/22 7:00:00 EDT, 100 mL/hr, Infuse over 30 minute(s), 10/12/22 6:54:00 EDT dexamethasone 4 mg/mL Inj 1 mL: 4 mg = 1 mL, Injection, IV Push, Once, Stop date 10/11/22 17:00:00 EDT, Routine, Start date 10/11/22 17:00:00 EDT, 10/11/22 17:00:00 EDT ferrous sulfate 325 mg Tab: 325 mg = 1 tab(s), Tab, Oral, BIDWM, Routine, Start date 10/12/22 8:00:00 EDT, 10/12/22 6:54:00 EDT ketorolac 15 mg/mL Inj: 15 mg = 1 mL, Injection, IV Push, q6hr for 3 dose(s), Stop date 10/14/22 3:59:00 EDT, Routine, Start date 10/12/22 16:00:00 EDT, 10/12/22 16:00:00 EDT morphine 2 mg/mL Inj: 2 mg = 1 mL, Injection, IV, q4hr PRN Pain 8-10 for 5 day(s), Stop date 10/17/22 6:53:00 EDT, Routine, Start date 10/12/22 6:54:00 EDT, 10/12/22 6:54:00 EDT oxyCODONE 5 mg Tab: 10 mg = 2 tab(s), Tab, Oral, q4hr PRN Pain 8-10 for 5 day(s), Stop date 10/17/22 6:53:00 EDT, Routine, Start date 10/12/22 6:54:00 EDT, 10/12/22 6:54:00 EDT oxyCODONE 5 mg Tab: 5 mg = 1 tab(s), Tab, Oral, q4hr PRN Pain 8-10 for 5 day(s), Stop date 10/17/22 6:53:00 EDT, Routine, Start date 10/12/22 6:54:00 EDT, 10/12/22 6:54:00 EDT Prescriptions Prescribed CeleBREX 100 mg Cap: 100 mg = 1 cap(s), Oral, BID, PRN for pain, # 60 cap(s), Refills(s) 0, Pharmacy: [facility]/pharmacy #[id number], 155, cm, 09/28/22 5:33:00 EDT, Height/Length Dosing, 65.6, kg, 09/28/22 5:33:00 EDT, Weight Dosing Colace 100 mg Cap: 100 mg = 1 cap(s), Oral, BID, PRN for constipation, # 20 cap(s), Refills(s) 0, Pharmacy: [facility]/pharmacy #[id number], 155, cm, 09/28/22 5:33:00 EDT, Height/Length Dosing, 65.6, kg, 09/28/22 5:33:00 EDT, Weight Dosing Keflex 500 mg Cap: 500 mg = 1 cap(s), Oral, q8hr, X 7 day(s), # 21 cap(s), Refills(s) 0, Pharmacy: [facility]/pharmacy #[id number], 155, cm, 09/28/22 5:33:00 EDT, Height/Length Dosing, 65.6, kg, 09/28/22 5:33:00 EDT, Weight Dosing Percocet 5 mg-325 mg oral tablet: See Instructions, 40 tab(s), Refill(s) 0, 1-2 tab(s) Oral q4hr, [facility]/pharmacy #[id number], 155, cm, 09/28/22 5:33:00 EDT, Height/Length Dosing, 65.6, kg, 09/28/22 5:33:00 EDT, Weight Dosing Documented Medications Documented Tylenol: PRN Pain 1-3, Refills(s) 0, Pain ibuprofen: PRN Pain 1-3, Pain multivitamin: 1 tab, Oral, Daily, Refill(s) 0, Prophylaxis, Home Medications (7) Active CeleBREX 100 mg Cap 100 mg = 1 cap(s), PRN, Oral, BID Colace 100 mg Cap 100 mg = 1 cap(s), PRN, Oral, BID ibuprofen , PRN Keflex 500 mg Cap 500 mg = 1 cap(s), Oral, q8hr multivitamin 1 tab, Oral, Daily Percocet 5 mg-325 mg ora (more content not included)... Normal [facility] Comment on above: Result Comment: Elec tronically Signed By: Charles Gudino DO.br\Date and Time Signed: 10/12/22 11:35 EDT XR Shoulder Complete Righton 10-12-2022 XR Shoulder Complete Right Exam Date/Time: 10/12/2022 09:49 EDT Reason for Exam: Post Op Report IMPRESSION: Status post complete right shoulder replacement. EXAMINATION: XR Shoulder Complete Right, 10/12/2022 9:35 AM CLINICAL HISTORY: Post Op TECHNIQUE: AP x-ray COMPARISON: None FINDINGS: Status post complete right shoulder replacement. The prostheses are in anatomic alignment. Expected postoperative soft tissue edema and subcutaneous air are noted. Ordering Provider: Glenn Plunkett FINAL REPORT Dictated: 10/12/2022 12:32 pm Flakito Reyes MD, V. Signed (Electronic Signature): 10/12/2022 12:32 pm Signed by: Flakito Reyes MD, V. Transcribed by: JACKSON Technologist: BA Technical Comments Radiation Dose: Ka,r in mGy = na DAP = na Normal [facility] CT Upper Extremity w/o Contr ast Righton 10-01-2022 CT Upper Extremity w/o Contrast Right Exam Date/Time: 09/27/2022 16:03 EDT Reason for Exam: OA RIGHT SHOULDER Report IMPRESSION: RIGHT SHOULDER OSTEOARTHRITIS. 4 MM RIGHT MIDDLE LOBE PULMONARY NODULE. FOLLOW-UP CT OF THE CHEST WITHOUT CONTRAST IN 6 MONTHS RECOMMENDED. EXAMINATION: CT Upper Extremity w/o Contrast Right HISTORY: Right shoulder osteoarthritis TECHNIQUE: Multiple contiguous axial images were obtained of the right upper extremity utilizing Arthrex protocol. Multiplanar reformats were obtained. COMPARISON: Shoulder radiographs 08/25/2022 FINDINGS: Degenerative changes including joint space narrowing and marginal osteophyte formation of the glenohumeral joint. High riding humeral head suggests large chronic full-thickness superior rotator cuff tear. Moderate degenerative changes of the acromioclavicular joint. Acromion is curved. No acute fracture. Small glenohumeral joint effusion. 4 mm right middle lobe nodule. Follow-up CT of the chest with contrast is recommended per Fleischner protocol. All CT scans at this facility use dose modulation, iterative reconstruction, and/or weight based dosing when appropriate to reduce radiation dose to as low as reasonably achievable. Ordering Provider: Glenn Plunkett FINAL REPORT Dictated: 10/01/2022 10:35 am Bernardo Lizarraga DO Signed (Electronic Signature): 10/01/2022 10:35 am Signed by: Bernardo Lizarraga DO Transcribed by: JACKSON Technologist: JERILYN Mo [facility] XR Chest 2 Viewson 3 XR Chest 2 Views Exam Date/Time: 09/27/2022 15:44 EDT Reason for Exam: P.A.T. Report IMPRESSION: NO EVIDENCE OF ACUTE CHEST DISEASE. CLINICAL HISTORY: P.A.T.. COMMENT: The heart is normal in size. The mediastinum is unremarkable. There is minimal linear atelectasis or fibrosis at the left lung base laterally. No consolidated airspace opacification nor pleural effusion is evident. Ordering Provider: Cervantes Ahmad FINAL REPORT Dictated: 09/28/2022 10:05 am Eduard Renteria M.D. Signed (Electronic Signature): 09/28/2022 10:05 am Signed by: Eduard Renteria M.D. Transcribed by: JACKSON Technologist: OTF Technical Comments Radiation Dose: Ka,r in mGy = na DAP = na Normal [facility] ABO/Rh Retypeon 09-27-2022 ABO/Rh Retype Interp Positive Invalid Interpretation Code [facility] Comment on above: Performed By: #### 1 [id number] ####[facility] [address] [place] [address] BLOOD BANKOrdered By: Yandy Brady on 09-27-2022 ABO/Rh Retype Interp Positive Invalid Interpretation Code [facility] BB Subsection BUNon 09-27-2022 Urea nitrogen [Mass/Vol] 17 mg/dL Normal 5-21 [facility] Comment on above: Performed By: #### 2 [id number], 6380115, 4880436, 7452630, 39595186, 2295752 ####[facility] [address] [place] [address] CBC w/Indiceson 09-27-2022 Erythrocyte distribution width (RBC) [Ratio] 13.7 % Normal 10.9-14.2 [facility] Comment on above: Performed By: #### 2 969503, 4260035, 2757938, 3503093, 97360882, 8237988 #### [facility] [address] [place] [address] Hematocrit (Bld) [Volume fraction] 37.6 % Normal 34.0-46.0 [facility] Comment on above: Performed By: #### 2 550856, 7355891, 6168620, 0493845, 18713711, 1964765 #### [facility] [address] [place] [address] Hemoglobin (Bld) [Mass/Vol] 12.8 g/dL Normal 12.0-16.0 [facility] Comment on above: Performed By: #### 2 989479, 9169701, 0647013, 9116394, 01412235, 3738810 #### [facility] [address] [place] [address] MCH (RBC) [Entitic mass] 32.0 pg Normal 27.0-34.0 [facility] Comment on above: Performed By: #### 2 650788, 3568271, 2813542, 0491892, 55954411, 5742833 #### [facility] [address] [place] [address] MCHC (RBC) [Mass/Vol] 34.1 g/dL Normal 31.4-36.0 [facility] Comment on above: Performed By: #### 2 683735, 5589028, 4620448, 1806247, 97284059, 2898691 #### [facility] [address] [place] [address] MCV (RBC) [Entitic vol] 93.9 fL Normal 80.0-100.0 [facility] Comment on above: Performed By: #### 2 618042, 8070992, 8146551, 8747104, 06321421, 8050836 #### [facility] [address] [place] [address] Platelet mean volume (Bld) [Entitic vol] 8.3 fL Normal 6.4-10.8 [facility] Comment on above: Performed By: #### 2 229055, 7809863, 0466894, 3977814, 86759036, 0728506 #### [facility] [address] [place] [address] Platelets (Bld) [#/Vol] 209.0 E9/L Normal 150.0-500.0 [facility] Comment on above: Performed By: #### 2 532033, 7576302, 5968823, 8271759, 29542359, 6197652 #### [facility] [address] [place] [address] RBC (Bld) [#/Vol] 4.0 E12/L Low 4.3-5.9 [facility] Comment on above: Performed By: #### 2 241285, 3136565, 0100765, 1440886, 49433753, 1358776 #### [facility] [address] [place] [address] WBC corrected for nucl RBC Auto (Bld) [#/Vol] 8.1 E9/L Normal 4.0-11.0 [facility] Comment on above: Performed By: #### 2 861661, 8756001, 7086837, 0005298, 30412914, 9255552 #### [facility] [address] [place] [address] CHEMISTRYOrdered By: SYSTEM SYSTEM on 09-27-2022 Anion gap [Moles/Vol] 12 mmol/L Normal 6 - 16 mEq/L F [facility] Remisol Chloride [Moles/Vol] 104 mmol/L Normal 101 - 1 11 mmol/L [facility] CO2 [Moles/Vol] 26 mmol/L Normal 21 - 31 mmol/L [facility] Creatinine [Mass/Vol] 0.7 mg/dL Normal 0.5 - 1.3 mg/dL [facility] GFR/1.73 sq M.predicted among non-blacks MDRD (S/P/Bld) [Vol rate/Area] 90 mL/min/1.73 m2 Normal >=59mL/min/1. 73 m2 [facility] Chem S Glucose [Mass/Vol] 106 mg/dL Normal 55 - 199 mg/dL [facility] Potassium [Moles/Vol] 3.8 mmol/L Normal 3.5 - 5.3 mmol/L [facility] Sodium [Moles/Vol] 138 mmol/L Normal 135 - 145 mmol/L [facility] Urea nitrogen [Mass/Vol] 17 mg/dL Normal 5 - 21 mg/dL [facility] Consent for Treatmenton 08-31 Consent for Treatment [id number] #1.00CD:127 Normal [facility] Creatinineon 09-27-2022 Creatinine [Mass/Vol] 0.7 mg/dL Normal 0.5-1.3 [facility] Comment on above: Performed By: #### 2 778041, 4814335, 4028182, 1067878, 36741684, 8737698 ####[facility] [address] [place] [address] Glucoseon 09-27-2022 Glucose [Mass/Vol] 106 mg/dL Normal 55-199 [facility] Comment on above: Performed By: #### 2 291327, 0619923, 8588157, 7476395, 83461022, 3505294 #### [facility] [address] [place] [address] HEMATOLOGYOrdered By: Yandy Brady on 09-27-2022 Erythrocyte distribution width (RBC) [Ratio] 13.7 % Normal 10.9 - 14.2 % [facility] HemeAutoSS Hematocrit (Bld) [Volume fraction] 37.6 % Normal 34.0 - 46.0 % [facility] HemeAutoSS Hemoglobin (Bld) [Mass/Vol] 12.8 g/dL Normal 12.0 - 16.0 gm/dL [facility] HemeAutoSS MCH (RBC) [Entitic mass] 32.0 pg Normal 27.0 - 34.0 pg [facility] HemeAutoSS MCHC (RBC) [Mass/Vol] 34.1 g/dL Normal 31.4 - 36.0 gm/dL [facility] MCV (RBC) [Entitic vol] 93.9 fL Normal 80.0 - 100.0 fL [facility] Platelet mean volume (Bld) [Entitic vol] 8.3 fL Normal 6.4 - 10.8 fL [facility] Platelets (Bld) [#/Vol] 209.0 E9/L Normal 150.0 - 500.0 E9/L [facility] RBC (Bld) [#/Vol] 4.0 E12/L Low 4.3 - 5.9 E12/L [facility] WBC corrected for nucl RBC Auto (Bld) [#/Vol] 8.1 E9/L Normal 4.0 - 11.0 E9/L [facility] HemeAutoSS Lyteson 09-27-2022 Anion gap [Moles/Vol] 12 mmol/L Normal 6-16 [facility] Comment on above: Performed By: #### 2 024897, 6133980, 5012141, 6055931, 91702587, 5954838 ####[facility] [address] [place] [address] Chloride [Moles/Vol] 104 mmol/L Normal 101-111 [facility] Comment on above: Performed By: #### 2 153593, 1057156, 8708578, 1331665, 44773689, 5837451 ####[facility] [address] [place] [address] CO2 [Moles/Vol] 26 mmol/L Normal 21-31 [facility] Comment on above: Performed By: #### 2 074333, 9827298, 1727709, 1105655, 28918474, 6062374 ####[facility] [address] [place] [address] Potassium [Moles/Vol] 3.8 mmol/L Normal 3.5-5.3 [facility] Comment on above: Performed By: #### 2 529481, 8883482, 4535224, 5574580, 96802568, 3422085 ####[facility] [address] [place] [address] Sodium [Moles/Vol] 138 mmol/L Normal 135-145 [facility] Comment on above: Performed By: #### 2 037344, 3807862, 6754310, 8144915, 25827506, 4409713 ####[facility] [address] [place] [address] UA With Cult Reflexon 2022 Bilirubin Ql (U) Negative Normal Negative [facility] Comment on above: Performed By: #### 1 9608982 ####[facility] [address] [place] [address] Clarity (U) CLEAR Normal Clear [facility] Comment on above: Performed By: #### 1 8307752 ####[address] [address] Color (U) YELLOW Normal Yellow [facility] Comment on above: Performed By: #### 1 1706264 ####[address] [address] Epithelial cells.squamous LM.HPF (Urine sed) [#/Area] 0-2 Normal 0-2 [facility] Comment on above: Performed By: #### 1 0438953 ####[address] [address] Glucose Test strip (U) [Mass/Vol] Negative Normal Negative [facility] Comment on above: Performed By: #### 1 5418418 ####[address] [address] Hemoglobin Ql (U) Negative Normal Negative [facility] Comment on above: Performed By: #### 1 5580668 ####[address] [address] Ketones (U) [Mass/Vol] Negative Normal Negative [facility] Comment on above: Performed By: #### 1 4412718 ####[address] [address] Cobre.plasma/Lithiu m.RBC (Bld) [Mass ratio] 0-3 Normal 0-3 [facility] Comment on above: Performed By: #### 1 0379696 ####[address] [address] Nitrite Ql (U) Negative Normal Negative [facility] Comment on above: Performed By: #### 1 4007730 ####[address] [address] pH (U) 5.5 [pH] Invalid Interpretation Code 5.0-9.0 [facility] Comment on above: Performed By: #### 1 5444897 ####[facility] [address] [place] [address] Protein (U) [Mass/Vol] Negative Normal Negative [facility] Comment on above: Performed By: #### 1 5632959 ####[address] [address] Specific gravity (U) [Rel density] 1.015 Invalid Interpretation Code 1.005-1.030 [facility] Comment on above: Performed By: #### 1 2092436 ####[address] [address] Type of Urine collection method Clean Catch Normal [facility] Comment on above: Performed By: #### 1 5766184 ####[address] [address] Urobilinogen Qn (U) 0.2 {Behzad'U}/dL Normal 0.0-1.0 [facility] Comment on above: Performed By: #### 1 6475982 ####[facility] [address] [place] [address] WBC Auto Ql (U) Negative Normal Negative [facility] Comment on above: Performed By: #### 1 2499703 ####[facility] [address] [place] [address] WBC LM.HPF (Urine sed) [#/Area] 0-5 Normal 0-5 [facility] Comment on above: Performed By: #### 1 4002504 ####[facility] [address] [place] [address] URINALYSISOrdered By: Richelle Phelan on 09-27-2022 Bilirubin Ql (U) Negative (09/27/22 3:30 PM) Normal Negative [facility] UA Auto SS Clarity (U) Clear (09/27/22 3:30 PM) Normal Clear [facility] UA Auto SS Color (U) Yellow (09/27/22 3:30 PM) Normal Yellow [facility] UA Auto SS Epithelial cells.squamous LM.HPF (Urine sed) [#/Area] 0-2 /HPF Normal 0-2/HPF [facility] UA Aut o SS Glucose Test strip (U) [Mass/Vol] Negative (09/27/22 3:30 PM) Normal Negative [facility] UA Auto SS Hemoglobin Ql (U) Negative (09/27/22 3:30 PM) Normal Negative [facility] UA Auto SS Ketones (U) [Mass/Vol] Negative (09/27/22 3:30 PM) Normal Negative [facility] UA Auto SS Cobre.plasma/Lithiu m.RBC (Bld) [Mass ratio] 0-3 /HPF Normal 0-3/HPF [facility] UA Auto SS Nitrite Ql (U) Negative (09/27/22 3:30 PM) Normal Negative [facility] UA Auto SS pH (U) 5.5 *NA* (09/27/22 3:30 PM) Invalid Interpretation Code 5.0 - 9.0 [facility] UA Auto SS Protein (U) [Mass/Vol] Negative (09/27/22 3:30 PM) Normal Negative [facility] UA Auto SS Specific gravity (U) [Rel density] 1.015 *NA* (09/27/22 3:30 PM) Invalid Interpretation Code 1.005 - 1.030 [facility] UA Auto SS UA Spec Desc Clean Catch (09/27/22 3:30 PM) Normal [facility] UA Auto SS Urobilinogen Qn (U) 0.7787644 {Behzad'U}/dL Normal 0.0 - 1.0 EU/dL [facility] UA Auto SS WBC Auto Ql (U) Negative (09/27/22 3:30 PM) Normal Negative [facility] UA Auto SS WBC LM.HPF (Urine sed) [#/Area] 0-5 /HPF Normal 0-5/HPF [facility] UA Auto SS eGFRon 09-27-2022 GFR/1.73 sq M.predicted among non-blacks MDRD (S/P/Bld) [Vol rate/Area] 90 mL/min/1.73 m2 Normal >=59 [facility] Comment on above: Order Comment: Order added by Discern Expert. Result Comment: Lead Tank Mechanic imelda kidney disease could be indicated at eGFR's of less than 60 mL/min/1.73m2. Kidney failure is indicated at less than 15 mL/min/1.73m2. Performed By: #### 2 816805, 2175598, 5390144, 9825834, 43779871, 2985827 ####[facility] [address] [place] [address] Physician Orderon 09-20-2022 Physician Order [id number] #1.00CD:127 Normal [facility] Physician Orderon 09-09-2022 Physician Order [id number]#1.00CD:127 Normal [facility] Pre-Certification Formon Pre-Certification Form [id number] #1.00CD:127 Normal [facility] Physician Orderon 09-01-2022 Physician Order [id number] #1.00CD:127 Normal [facility] Physician Orderon 08-26-2022 Physician Order [id number]#1.00CD:127 Normal [facility] CT CSPINE WO CONon CT CSPINE WO CON EXAMINATION: CT CSPINE WO CON 04/28/2021 COMPARISON STUDY: None. HISTORY: UNSPECIFIED INJURY OF HEAD, INITIAL ENCOUNTER. TECHNIQUE: CT Cervical spine without IV contrast. Coronal and sagittal reformations were performed. Dose reduction techniques were achieved by using automated exposure control and/or adjustment of mA and/or kV according to patient size and/or use of iterative reconstruction technique. FINDINGS: The visualized portions of the intracranial contents at the skull base appear unremarkable. Visualized portions of the posterior facial bones and skull base are intact. Overall the bony mineralization is diminished throughout. Degenerative narrowing of the predental space with associated sclerosis and osteophytosis noted. Multilevel cervical spondylitic changes are identified. This is most apparent at C4-C5 through the C6-C7 levels. The alignment is intact. There is no acute fracture or subluxation suspected. The C1 ring is intact. At C2-C3 there is no significant canal stenosis or foraminal stenosis. At C3-C4 there is no significant canal stenosis or foraminal stenosis. At C4-C5 minimal bilateral facet disease is asymmetrically greater toward the right. No significant canal stenosis or foraminal stenosis. At C5-C6 there is left-sided foraminal encroachment as a result of uncovertebral arthritic changes. Mild posterior endplate spurring is noted as well as mild bilateral facet disease. No critical canal stenosis. At C6-C7 minimal left-sided facet disease is noted. No significant canal stenosis or foraminal stenosis. At C7-T1 there is no significant canal stenosis or foraminal stenosis. Mild chronic biapical symmetric fibrotic type changes are present. There are changes from atherosclerosis with peripheral vascular arterial disease. Subcentimeter right-sided paratracheal diverticulum noted. Subcentimeter nodule within the left lobe of the thyroid is seen incidentally with transverse diameter of 7 mm. The thyroid overall is somewhat atrophic. Prevertebral soft tissues demonstrate no acute abnormality otherwise. IMPRESSION: 1. No acute osseous abnormality involving the cervical spine. 2. Mild multilevel cervical spondylitic changes noted as described. Exit neural foraminal encroachment is most apparent on the left from uncovertebral arthrosis at C5-C6. 3. Generalized osteopenia. Electronically authenticated by: ADRIANA MONSIVAIS Date: 2021-04-28 21:08 Normal [facility] CT FACIAL BONES WO CONon CT FACIAL BONES [facility] Maxillofacial CT WITHOUT CONTRAST, 04/28/2021 7:26 PM EST: COMPARISON: None. CLINICAL HISTORY: UNSPECIFIED INJURY OF FACE, INITIAL ENCOUNTER. Bruising to the left side of the chin with abrasion under the lateral aspect of the left eye. Fall with abrasions to left side of the face. TECHNIQUE: 2 mm axial images performed through the facial region without contrast. 2 mm sagittal and coronal MPR reconstructions performed. Dose reduction techniques were achieved by using automated exposure control and/or adjustment of mA and/or kV according to patient size and/or use of iterative reconstruction technique. FINDINGS: No acute fracture, subluxation, or dislocation identified. Mild nasal septal deviations to the left of midline. Paranasal sinuses and mastoid air cells are clear. The globes and retrobulbar spaces have a normal appearance. Remaining soft tissues are unremarkable. IMPRESSION: 1. No acute bony trauma identified. 2. Mild nasal septal deviation to the left of midline. Paranasal sinuses are clear. Electronically authenticated by: Joey LARSON Date: 2021-04-28 20:59 Normal [facility] CT HEAD WO CONon 04-28-2021 CT HEAD WO CON EXAM: CT HEAD WO CON INDICATION: Trauma. COMPARISON: 01/14/2018. There is no report available. TECHNIQUE: CT of the head without intravenous contrast. Dose reduction techniques were achieved by using automated exposure control and/or adjustment of mA and/or kV according to patient size and/or use of iterative reconstruction technique. FINDINGS: There is no evidence of acute intracranial hemorrhage, extra-axial collection, mass effect, midline shift, herniation, or hydrocephalus. The ventricles, sulci, and cisterns are age appropriate. Small lacunar infarct on image 16 of series 5 suggested in the right greater than left basal ganglia region. Slight periventricular low attenuation is noted elsewhere. There is no large area of decreased attenuation in a major vascular territory to indicate acute ischemic change. ____ The visualized paranasal sinuses and mastoid air cells are clear. Moderate hyperostosis frontalis interna is appreciated. The surrounding soft tissues and osseous structures are unremarkable. Minimal soft tissue edema overlies the left lateral orbital and zygomatic region. IMPRESSION: No evidence of acute intracranial hemorrhage, extra-axial collection, mass effect, or hydrocephalus. Scattered periventricular low attenuation as described above is nonspecific on noncontrast CT, however can be due to underlying microvascular ischemic change. Electronically authenticated by: TRACEY RODRÍGUEZ Date: 2021-04-28 20:37 Normal [facility] Vital Signs Date Time Vital Sign Value Performing Clinician Scott olivera 10-13-2022 13:02-0400 Hourly Rounding [employer] [facility] 10-13-2022 13:02-0400 Promise to Return [employer] [facility] 10-13-2022 12:00-0400 Hourly Rounding [employer] [facility] 10-13-2022 12:00-0400 Promise to Return [employer] [facility] 10-13-2022 11:51-0400 Hourly Rounding Glenn Plunkett [facility] 10-13-2022 11:51-0400 Promise to Return Glenn Plunkett [facility] 10-13-2022 11:17-0400 Heart rate 82 /min Glenn Plunkett [facility] 10-13-2022 11:17-0400 SaO2% (BldA) [Mass fraction] 94 % Glenn Plunkett [facility] 10-13-2022 11:16-0400 Diastolic blood pressure 72 mm[Hg] Glenn Plunkett [facility] 10-13-2022 11:16-0400 Mean blood pressure 88 mm[Hg] Glenn Plunkett [facility] 10-13-2022 11:16-0400 Systolic blood pressure 120 mm[Hg] Glenn Plunkett [facility] 10-13-2022 11:16-0400 Body temperature 97.7 [degF] Glenn Plunkett [facility] 10-13-2022 07:52-0400 Heart rate 84 /min Glenn Plunkett [facility] 10-13-2022 07:52-0400 SaO2% (BldA) [Mass fraction] 94 % Glenn Plunkett [facility] 10-13-2022 07:49-0400 Body temperature 98.06 [degF] Glenn Plunkett [facility] 10-13-2022 07:49-0400 Diastolic blood pressure 66 mm[Hg] Glenn Plunkett [facility] 10-13-2022 07:49-0400 Mean blood pressure 82 mm[Hg] Glenn Plunkett [facility] 06-15-2023 07:49-0400 Systolic blood pressure 114 mm[Hg] Glenn Brown [facility] 10-13-2022 04:50-0400 Blood Pressure Location Glenn Plunkett [facility] 10-13-2022 04:50-0400 Body temperature 97.88 [degF] Glenn Plunkett [facility] 10-13-2022 04:50-0400 Diastolic blood pressure 66 mm[Hg] Glenn Brown [facility] 10-13-2022 04:50-0400 Heart rate 79 /min [employer] [facility] 10-13-2022 04:50-0400 Mean blood pressure 81 mm[Hg] [employer] [facility] 10-13-2022 04:50-0400 Respiratory rate 18 /min [employer] [facility] 10-13-2022 04:50-0400 SaO2% (BldA) [Mass fraction] 92 % [employer] [facility] 10-13-2022 04:50-0400 Systolic blood pressure 112 mm[Hg] [employer] [facility] 10-12-2022 23:45-0400 Blood Pressure Location Glenn Plunkett [facility] 10-12-2022 23:45-0400 Mean blood pressure 81 mm[Hg] Glenn Brown [facility] 10-12-2022 23:45-0400 Respiratory rate 18 /min [employer] [facility] 10-12-2022 20:04-0400 Mean blood pressure 70 mm[Hg] [employer] [facility] 10-12-2022 20:00-0400 Respiratory rate 17 /min Glenn Brown [facility] 10-12-2022 12:00-0400 Body temperature 98.06 [degF] Glenn Brown [facility] 10-12-2022 10:37-0400 Body temperature 98.24 [degF] Glenn Brown [facility] 10-12-2022 10:36-0400 Body temperature 97.88 [degF] Glenn Brown [facility] 10-12-2022 10:36-0400 Mean blood pressure 94 mm[Hg] Glenn Brown [facility] 10-12-2022 10:36-0400 Respiratory rate 10 /min Glenn Brown [facility] 10-12-2022 10:15-0400 Respiratory rate 19 /min Glenn Brown [facility] 10-12-2022 10:05-0400 Respiratory rate 11 /min Glenn Brown [facility] 10-12-2022 05:59-0400 Heart rate 80 /min Glenn Brown [facility] 09-27-2022 14:44-0400 Diastolic blood pressure 77 mm[Hg] Glenn Brown [facility] 09-27-2022 14:44-0400 Heart rate 88 /min Glenn Brown [facility] 09-27-2022 14:44-0400 Mean blood pressure 100 mm[Hg] Glenn Brown [facility] 09-27-2022 14:44-0400 Systolic blood pressure 146 mm[Hg] Glenn Brown [facility] 09-27-2022 14:43-0400 Heart rate 89 /min Glenn Brown [facility] 09-27-2022 14:43-0400 SaO2% (BldA) [Mass fraction] 97 % Glenn Plunkett [facility] 09-27-2022 14:43-0400 Respiratory rate 18 /min Glenn Plunkett [facility] 09-27-2022 14:42-0400 Body temperature 97.52 [degF] Glenn Plunkett [facility] 09-27-2022 14:42-0400 Diastolic blood pressure 81 mm[Hg] Glenn Plunkett [facility] 09-27-2022 14:42-0400 Mean blood pressure 104 mm[Hg] Glenn Plunkett [facility] 09-27-2022 14:42-0400 Systolic blood pressure 150 mm[Hg] Glenn Plunkett [facility] Encounters Encounter Date Encounter Type Care Provider Facility Start: 04-07-2023 End: 04-08-2023 ambulatory Glenn Plunkett [facility] Start: 04-07-2023 End: 04-07-2023 Patient encounter procedure Glenn Plunktet [facility] Start: 03-14-2023 End: 03-14-2023 ambulatory GLENN PLUNKETT Not Available Start: 02-07-2023 End: 02-08-2023 ambulatory Glenn Plunkett Facility:[facility] Start: 10-12-2022 End: 10-13-2022 ambulatory Glenn Plunkett Facility:[facility] Start: 10-12-2022 End: 10-13-2022 Observation Glenn Plunkett [facility] Start: 09-27-2022 End: 09-28-2022 ambulatory Glenn Plunkett Facility:[facility] Start: 09-27-2022 End: 09-27-2022 Patient encounter procedure Glenn Plunkett [facility] Start: 04-28-2021 End: 04-28-[address] ZOË MCLEOD Facility:[facility] Procedures Date Procedure Procedure Detail Performing Clinician Start: 10-12-2022 Reverse prosthetic t otal arthroplasty of shoulder Glenn Plunkett Appendectomy Glenn Plunkett Bilateral glaucoma (disorder) Glenn Plunkett H/O: hysterectomy Glenn swartz Prosthetic total arthroplasty of left shoulder Glenn Plunkett Payers Date Payer Category Payer Private Health Insurance [id number] 1958 Medicaid [id number] 1958 Unknown [id number] 1945 Unknown [id number] [id number] 1945 Unknown [id number] [id number]. [id number] 1945 Unknown [id number] 1945 Unknown [id number] 2.16.8 [id number] 1945 Unknown [id number] 2.16.8 [id number] 1945 Unknown [id number] 2.16.8 [id number] 1945 Unknown [id number] 2.16.8 [id number] Social History Date Type Detail Facility Tobacco smoking status No Smoking Status Entered [facility] Sex Assigned At Female [facility] Medical Equipment Procedure Code Equipment Code Equipment Origin al Text Equipment Identifier Dates SHOULDER TOTAL ARTHROPLASTY Glenn Plunkett DO 10/12/22 Unknown Shoulder R FDA Start: 10-12-2022 SHOULDER TOTAL ARTHROPLASTY Dimitrios DO, Glenn A 10/12/22 Unknown Shoulder R FDA Start: 10-12-2022 SHOULDER TOTAL ARTHROPLASTY Dimitrios DO, Glenn A 10/12/22 Unknown Shoulder R FDA Start: 10-12-2022 SHOULDER TOTAL ARTHROPLASTY Brown DO, Glenn A 10/12/22 Unknown Shoulder R FDA Start: 10-12-2022 SHOULDER TOTAL ARTHROPLASTY Dimitrios DO, Glenn A 10/12/22 Unknown Shoulder R FDA Start: 10-12-2022 SHOULDER TOTAL ARTHROPLASTY Brown DO, Glenn A 10/12/22 Unknown Shoulder R FDA Start: 10-12-2022 SHOULDER TOTAL ARTHROPLASTY Dimitrios DO, Glenn A 10/12/22 Unknown Shoulder R FDA Start: 10-12-2022 SHOULDER TOTAL ARTHROPLASTY Dimitrios DO, Glenn A 10/12/22 Unknown Shoulder R FDA Start: 10-12-2022 SHOULDER TOTAL ARTHROPLASTY Dimitrios DO, Glenn A 10/12/22 Unknown Shoulder R FDA Start: 10-12-2022 SHOULDER TOTAL ARTHROPLASTY Dimitrios DO, Glenn A 10/12/22 Unknown Shoulder R FDA Start: 10-12-2022 SHOULDER TOTAL ARTHROPLASTY Dimitrios DO, Glenn A 10/12/22 Unknown Shoulder R FDA Start: 10-12-2022 SHOULDER TOTAL ARTHROPLASTY Dimitrios DO, Glenn A 10/12/22 Unknown Shoulder R FDA Start: 10-12-2022 SHOULDER TOTAL ARTHROPLASTY Dimitrios DO, Glenn A 10/12/22 Unknown Shoulder R FDA Start: 10-12-2022 SHOULDER TOTAL ARTHROPLASTY Dimitrios DO, Glenn A 10/12/22 Unknown Shoulder R FDA Start: 10-12-2022 SHOULDER TOTAL ARTHROPLASTY Dimitrios DO, Glenn A 10/12/22 Unknown Shoulder R FDA Start: 10-12-2022 SHOULDER TOTAL ARTHROPLASTY Dimitrios DO, Glenn A 10/12/22 Unknown Shoulder R FDA Start: 10-12-2022 SHOULDER TOTAL ARTHROPLASTY Dimitrios DO, Glenn A 10/12/22 Unknown Shoulder R FDA Start: 10-12-2022 SHOULDER TOTAL ARTHROPLASTY Brown DO, Glenn A 10/12/22 Unknown Shoulder R FDA Start: 10-12-2022 SHOULDER TOTAL ARTHROPLASTY Brown DO, Glenn A 10/12/22 Unknown Shoulder R FDA Start: 10-12-2022 SHOULDER TOTAL ARTHROPLASTY Dimitrios DO, Glenn A 10/12/22 Unknown Shoulder R FDA Start: 06-14-2023 Functional Status Date Assessment Result Facility 09-27-2022 Functional Status No [facility] Discharge summary note 10-13-2022 Note Date & Type Note Facility 10-13-2022 Note Patient: ARASH RUIZ Age: 77 years Sex: Female : 1945 Associated Diagnoses: None Author: Glenn Plunkett DO Discharge Information Discharge Summary Information: Admit Date/Time: 10/12/22 05:32 Discharge Date/Time: 10/13/22 12:31 Admitting Physician: Glenn Plunkett DO Referring Physician for Admission: Glenn Plunkett DO Consulting Physicians: none Admitting Diagnoses: CTA right shoulder procedure: R reverse TSA discharge disposition: home Discharge Diagnoses: Other specific arthropathies, not elsewhere classified, right shoulder Prescription and Home Meds: acetaminophen-oxycodone (Percocet 5 mg-325 mg oral tablet) See Instructions, 1-2 tab(s) Oral q4hr, 40 tab(s), 0 Refill(s) celecoxib (CeleBREX 100 mg Cap) 100 mg, 1 cap(s), Oral, BID, PRN: for pain, 60 cap(s), 0 Refill(s) cephalexin (Keflex 500 mg Cap) 500 mg, 1 cap(s), Oral, q8hr, for 7 day(s), 21 cap(s), 0 Refill(s) docusate (Colace 100 mg Cap) 100 mg, 1 cap(s), Oral, BID, PRN: for constipation, 20 cap(s), 0 Refill(s) multivitamin 1 tab, Oral, Daily, 0 Refill(s) [facility] Comment on above: Result Comment: Elec tronically Signed By: Glenn Plunkett DO\.br\Date and Time Signed: 10/13/22 12:32 EDT Evaluation + Plan note 10-13-2022 Note Date & Type Note Facility 10-13-2022 Evaluation + Plan note Extrac jena from: Title:Discharge Summary Author:Glenn Plunkett DO Date:10/13/22 Discharge Information Discharge Summary Information: Admit Date/Time: 10/12/22 05:32Discharge Date/Time: 10/13/22 12:31 Admitting Physician: Glenn Plunkett DO Referring Physician for Admission: Glenn Plunkett DO Consulting Physicians: none Admitting Diagnoses: CTA right shoulder procedure: R reverse TSA discharge disposition: home Discharge Diagnoses: Other specific arthropathies, not elsewhere classified, right shoulder Prescription and Home Meds: acetaminophen-oxycodone (Percocet 5 mg-325 mg oral tablet) See Instructions, 1-2 tab(s) Oral q4hr, 40 tab(s), 0 Refill(s) celecoxib (CeleBREX 100 mg Cap) 100 mg, 1 cap(s), Oral, BID, PRN: for pain, 60 cap(s), 0 Refill(s) cephalexin (Keflex 500 mg Cap) 500 mg, 1 cap(s), Oral, q8hr, for 7 day(s), 21 cap(s), 0 Refill(s) docusate (Colace 100 mg Cap) 100 mg, 1 cap(s), Oral, BID, PRN: for constipation, 20 cap(s), 0 Refill(s) multivitamin 1 tab, Oral, Daily, 0 Refill(s) Extracted from: Title:[facility] Author:Jay Gudino DO Date:10/12/22 Plan Transfer/Discharge: Patient exhibiting no signs of N/V. Hydration status is adequate. Extracted from: Title:[facility] PRE Author:Jake Gudino DO Date:10/12/22 Plan [employer] (ASA) physical status classification: Class II. Anesthetic Preoperative Plan: Anesthesia General. Regional Interscalene block. [facility] Hospital Discharge instructions 10-12-2022 Note Date & Type Note Facility 10-12-2022 Hospital Discharg e instructions Patient Education 10/12/2022 06:57:22 Jenise Plunkett - Shoulder Replacement (Custom) [place], [place] [facility] DISCHARGE INSTRUCTIONS: SHOULDER REPLACEMENT MEDICATIONS You will be given a prescription for pain medication. This should be taken with food as needed. This may cause stomach upset, dizziness, and possible constipation. Please notify the office if you have any medication allergies to this type of medication or if any problems develop with the medication. DRESSING CHANGES Leave your bandage in place until your follow up visit. The bandage is waterproof, so you may shower it home. Any increase in pain, temperature over 101 degrees, redness, or drainage should be reported to the office prior to your first office visit. ACTIVITY You may continue to progress activity as comfortably tolerated with your opposite arm. You may begin to use your elbow, wrist, and hand as directed in physical therapy. You should only remove your sling for bathing and to perform range of motion exercises for the hand, wrist, and elbow. Do not actively move your shoulder Continue to ice the shoulder several times per day until follow up. ANESTHESIA PRECAUTIONS You should not operate a vehicle, automobile, bicycle or motorcycle, machinery, or power tools, make any important decisions, or drink alcohol for 24 hours. It may be beneficial to have a responsible adult remain with you for your first 24 hours after surgery. You may be drowsy and light-headed. DRIVING Driving is legal, however, if you are involved in an accident, you must be able to prove that you maintained full control of your vehicle. For this reason, it is advised that you do not drive until your strength returns. PROBLEMS You should notify the office for any persistent or heavy bleeding, temperature above 101, redness, swelling, or drainage from the operative site, severe pain at the operative site, or the development of persistent vomiting. Glenn Plunkett, DO [facility] [address] [place], [place] [id number] Reviewed: Follow Up Care 08/25/2022 15:38:11 With:XXXX NONE Address: NE When: Unknown With:Glenn Plunkett Address: [address] [place] [phone] Business (1) When:10/25/2022 09:45:00 [facility] History and physical note 10-12-2022 Note Date & Type Note Facility 10-12-2022 Note [id number]# 1.00CD:127 [facility] Clinical Note 04-28-2021 Note Date & Type Note Facility 04-28-2021 Note PROCEDURE: XR CHEST 1 V REASON FOR STUDY/CLINICAL HISTORY: Unspecified fall. COMPARISON STUDY: None available at time of dictation. TECHNIQUE: Single view(s) of the chest presented for interpretation. FINDINGS: Chronic interstitial changes are noted and there is slight atelectasis and bronchial thickening at the right infrahilar region and medial lung base. Scattered areas of calcification most suggest the sequela of prior granulomatous disease. Top Normal cardiomediastinal silhouette, somewhat poorly evaluated on portable radiography for which clinical correlation is recommended.. No focal consolidation, edema, or effusion. No pneumothorax. No acute appearing focal significant bony abnormality. IMPRESSION: Top normal cardiomediastinal silhouette. Mild bronchial thickening as described with subtle adjacent atelectatic change. No consolidation, large pleural effusion, or pneumothorax. Electronically authenticated by: TRACEY RODRÍGUEZ Date: 2021-04-28 20:18 [facility] Evaluation + Plan note Note Date & Type Note [facility] Evaluation + Plan note Future Appointments Appointment Date:10/12/2022 07:30:00 AM Scheduled Provider: Location:[facility] Surgical Services Appointment Type:Surgery FT [facility] Hospital course Narrative Note Date & Type Note Facility Hospital course Narrative No data available for this section [facility] Hospital Discharge instructions Note Date & Type Note Facility Hospital Discharge instructions No data available for this section [facility] Progress note Note Date & Type Note Facility Progress note No data available for this section [facility] Summary Purpose Family History No Family History Records FoundNo Family History Records FoundNo Family History Records Found No data available for this section No Family History Records Found Advance Directives No Advanced Directives Records FoundNo Advanced Directives Records FoundNo Advanced Directives Records FoundNo Advanced Directives Records Found Additional Source Comments INFORMATION SOURCE (unrecogn ized section and content) DATE CREATED AUTHOR 05/05/2021 [facility] DATE CREATED AUTHOR AUTHOR'S ORGANIZ ATION 01/03/2023 [facility] DATE CREATED AUTHOR AUTHOR'S ORGANIZ ATION 03/16/2023 [facility] DATE CREATED AUTHOR AUTHOR'S ORGANIZ ATION 04/12/2023 [facility] FOR RECORDS PERTAINING TO PATIENTS WHO ARE OR HAVE BEEN ENROLLED IN A CHEMICAL DEPENDENCY/SUBSTANCEABUSE PROGRAM, SOME INFORMATION MAY BE OMITTED. This clinical summary was aggregated from multiple sources. Caution should be exercised in using it in the provision of clinical care. This summary normalizes information from multiple sources, and as a consequence, information in this document may materially change the coding, format and clinical context of patient data. In addition, data may be omitted in some cases. CLINICAL DECISIONS SHOULD BE BASED ON THE PRIMARY CLINICAL RECORDS. [facility]. provides no warranty or guarantee of the accuracy or completeness of information in this document.
--- NOTE | 2023-06-08 10:01 | CT_ITS ---
The [address] [address] Patient Name: ARASH FLORES MRN: [id number] date: 1945 Sex: F Assigned Patient Location: CT Current Patient Location: CT Accession/Order Number: [id number] Exam Date: 06/08/2023 09:48 Report Date: 06/08/2023 10:44 At the request of: LEVAR NELSON Procedure: CT chest w con EXAMINATION: CT chest w con HISTORY: lung nodule R91.1 COMPARISON: No relevant comparison available. TECHNIQUE: Multi-planar CT images were created with IV contrast. Axial, Coronal, and Sagittal images. Dose reduction techniques were achieved by using automated exposure control and/or adjustment of mA and/or kV according to patient size and/or use of iterative reconstruction technique. FINDINGS: LUNGS: Stable solid 4.7 mm nodule in the right middle lobe, axial image 53, unchanged accounting for slice selection. No new significant nodule or mass is observed. Minimal dependent atelectasis right lower lobe PLEURA: No mass, effusion, or pneumothorax. VASCULATURE: Normal postcontrast opacification of the central pulmonary arterial tree. No filling defect to suggest a pulmonary embolus CARMENCITA: No mass or adenopathy. MEDIASTINUM: No mass or adenopathy. CARDIAC: No enlargement, pericardial thickening, or significant calcification. AORTA: No aneurysm or dissection. CHEST WALL: No mass or axillary adenopathy. BONES: No bone lesion or fracture. LIMITED ABDOMEN: Diffuse hypoattenuation the liver consistent with hepatic steatosis OTHER: Negative. CT/CT chest w con IMPRESSION: Stable 4.7 mm right middle lobe nodule Electronically authenticated by: TONY BADILLO Date: 06/08/2023 10:44
== END 2023-06-08 09:30 | disposition home or self-care (01) ==
LOC: CT 09:29
PROVIDERS: Visit Provider Family Medicine
DX: R91.1 Solitary pulmonary nodule (principal)
CPT/HCPCS: 71260; Q9967

== ENCOUNTER 2023-06-24 21:52 | Emergency (ER) | payer MEDICARE, MEDICAID, SELFPAY ==
[2023-06-24 21:59] VITALS: BP 158/69; PULSE 83; RESP 20; TEMP 36.5; O2SAT 96; BMI 25.6
--- OUTSIDE RECORDS SUMMARY | 2023-06-24 22:05 | XMS_ITS | CCD ---
Author Name Unknown Address [address] [place] [address] Organization [facility] Care Team Providers Care Document Analyst Name Role Phone SHANI, DR CAMP Consulting [...] Medication Allergies] Propensity to adverse reactions (disorder) [facility] Repository Medications Current Medications Medication Drug Class(es) Dates Sig (Normalized) Sig (Original) Tylenol (1 source) Start: 09-27-2022 Tylenol PRN Pain 1-3, Refills(s) 0, Pain Start Date: 09/27/22 Status: Ordered acetaminophen 325 mg / oxyCODONE hydrochloride 5 mg oral tablet (3 sources) Opioid Agonist Start: 10-12-2022 Percocet 5 mg-325 mg oral tablet See Instructions, 40 tab(s), Refill(s) 0, 1-2 tab(s) Oral q4hr, [id number], 155, cm, 09/28/22 5:33:00 EDT, Height/Length Dosing, 65.6, kg, 09/28/22 5:33:00 EDT, Weight Dosing Start Date: 10/22/22 Status: Ordered celecoxib 100 mg oral capsule (2 sources) Nonsteroidal Anti-inflammatory Drug Start: 10-12-2022 take 1 capsule by mouth twice daily as needed for pain CeleBREX 100 mg Cap 100 mg = 1 cap(s), Oral, BID, PRN for pain, # 60 cap(s), Refills(s) 0, Pharmacy: [facility]/pharmacy #3471, 155, cm, 09/28/22 5:33:00 EDT, Height/Length Dosing, 65.6, kg, 09/28/22 5:33:00 EDT, Weight Dosing Start Date: 10/12/22 Status: Ordered cephalexin 500 mg oral capsule (1 source) Cephalosporin Antibacterial Start: 10-12-2022 End: 10-19-2022 take 1 capsule by mouth every eight hours Keflex 500 mg Cap 500 mg = 1 cap(s), Oral, q8hr, X 7 day(s), # 21 cap(s), Refills(s) 0, Pharmacy: [facility]/pharmacy #3471, 155, cm, 09/28/22 5:33:00 EDT, Height/Length [...] constipation, # 20 cap(s), Refills(s) 0, Pharmacy: [facility]/pharmacy #3471, 155, cm, 09/28/22 5:33:00 EDT, Height/Length [...] Lizarraga DO Transcribed by: JACKSON Technologist: JEANNETTE [facility] CT Upper Extremity w/o Contr ast [...] Bernardo Lizarraga DO Transcribed by: JACKSON Technologist: [facility] Consent for Treatmenton Consent for Treatment [id number] #1.00TIFF [facility] Physician Orderon 03-30-2023 Physician Order [id number] #1.00TIFF [facility] Lab Miscellaneous-LCon 02-16 Lab Miscellaneous See Ref. Report Invalid Interpretation Code [facility] Comment on above: Result Comment: [facility] [address], [place] [id number] PhD Raphael Sharma Results scanned into Lab Documents Performed at: [facility] [address], [place] [id number] PhD Raphael Sharma Performed By: #### 1 [id number] #### [facility] Laboratory [address] [place] [address] Reference Lab Reporton 02-16 Reference Lab Report [id number] 2#1.00TIFF Normal [facility] Coding Summary.on 02-08-2023 Coding Summary. [id number] #1.00TIFF Normal [facility] Auto Diffon 02-07-2023 Basophils/100 WBC (Bld) 0.9 % Normal 0.0-2.0 [facility] Comment on above: Order Comment: Order Added by Discern Expert. Performed By: #### 1 [id number], 6054173, 2406214, 5637223 #### [facility] [address] [place] [address] Basophils/Leukocytes Auto (Bld) [Pure # fraction] 0.1 E9/L Normal 0.0-0.2 [facility] Comment on above: Order Comment: Order Added by Discern Expert. Performed By: #### 1 7241809, 0400439, 0286641, 1848484 #### [facility] Laboratory [address] [place] [address] Eosinophils/100 WBC (Bld) 1.7 % Normal 0.0-8.0 [facility] Comment on above: Order Comment: Order Added by Discern Expert. Performed By: #### 1 2854537, 6211534, 4738355, 3395391 #### [facility] [address] [place] [address] Eosinophils/Leukocyte s Auto (Bld) [Pure # fraction] 0.1 E9/L Normal 0.0-0.5 [facility] Comment on above: Order Comment: Order Added by Discern Expert. Performed By: #### 1 3051429, 7889394, 4575224, 4380154 #### [facility] [address] [place] [address] Lymphocytes/100 WBC (Bld) 50.7 % High 14.0-50.0 [facility] Comment on above: Order Comment: Order Added by Discern Expert. Performed By: #### 1 4572601, 5422044, 9758222, 1393636 #### [facility] [address] [place] [address] Lymphocytes/Leukocyte s Auto (Bld) [Pure # fraction] 4.0 E9/L Normal 1.0-4.0 [facility] Comment on above: Order Comment: Order Added by Yvonne Expert. Performed By: #### 1 4837301, 3417981, 6095412, 2813031 #### [facility] [address] [place] [address]81 Monocytes/100 WBC (Bld) 10.0 % Normal 4.0-14.0 [facility] Comment on above: Order Comment: Order Added by Yvonne Expert. Performed By: #### 1 5175895, 9047383, 9387978, 7533047 #### [facility] [address] [place] [address] Monocytes/Leukocytes Auto (Bld) [Pure # fraction] 0.8 E9/L Normal 0.2-1.0 [facility] Comment on above: Order Comment: Order Added by Discern Expert. Performed By: #### 1 6111046, 1322665, 8269718, 4804385 #### [facility] [address] [place] [address]273 Neutrophils/100 WBC (Bld) 36.7 % Normal 36.0-75.0 [facility] Comment on above: Order Comment: Order Added by Yvonne Expert. Performed By: #### 1 3316476, 1970049, 1623079, 1861008 #### [facility] [address] [place] [address] Neutrophils/Leukocyte s Auto (Bld) [Pure # fraction] 2.9 E9/L Normal 2.0-7.5 [facility] Comment on above: Order Comment: Order Added by Discern Expert. Performed By: #### 1 3506394, 5433625, 3985715, 5132924 #### [facility] [address] [place] [address] CBC w/ Auto Diffon Erythrocyte distribution width (RBC) [Ratio] 14.5 % High 10.9-14.2 [facility] Comment on above: Performed By: #### 1 3951800, 9445607, 9508929, 4638660 #### [facility] [address] [place] [address]67 Hematocrit (Bld) [Volume fraction] 39.6 % Normal 34.0-46.0 [facility] Comment on above: Performed By: #### 1 1499226, 3624758, 4709221, 8162929 #### [facility] [address] [place] [address] Hemoglobin (Bld) [Mass/Vol] 13.4 g/dL Normal 12.0-16.0 [facility] Comment on above: Performed By: #### 1 5454784, 3827986, 6926794, 5220322 #### [facility] [address] [place] [address]60[address] MCH (RBC) [Entitic mass] 31.1 pg Normal 27.0-34.0 [facility] Comment on above: Performed By: #### 1 0787428, 2882701, 2902526, 1069118 #### [facility] [address] [place] [address] MCHC (RBC) [Mass/Vol] 33.8 g/dL Normal 31.4-36.0 [facility] Comment on above: Performed By: #### 1 8025873, 3954279, 0290523, 2724101 #### [facility] [address] [place] [address] 27292 MCV (RBC) [Entitic vol] 92.1 fL Normal 80.0-100.0 [facility] Comment on above: Performed By: #### 1 8065461, 4468996, 7979950, 6232053 #### [facility] [address] [place] [address] Platelet mean volume (Bld) [Entitic vol] 8.1 fL Normal 6.4-10.8 [facility] Comment on above: Performed By: #### 1 8103628, 8100121, 5737167, 6824992 #### [facility] [address] [place] [address] Platelets (Bld) [#/Vol] 226.0 E9/L Normal 150.0-500.0 [facility] Comment on above: Performed By: #### 1 7835695, 8104206, 9890523, 7813354 #### [facility] Laboratory [address] [place] [address] RBC (Bld) [#/Vol] 4.3 E12/L Normal 4.3-5.9 [facility] Comment on above: Performed By: #### 1 7649637, 1205288, 3533705, 9220500 #### [facility] [address] [place] [address] WBC corrected for nucl RBC Auto (Bld) [#/Vol] 7.9 E9/L Normal 4.0-11.0 [facility] Comment on above: Result Comment: Slid e reviewed by LW. Performed By: #### 1 1819305, 5584501, 9291279, 6081691 #### [facility] [address] [place] [address] CRPon 02-07-2023 CRP [Mass/Vol] 0.6 mg/dL Normal <=1.9 [facility] Comment on above: Performed By: #### 1 1010560, 9854128, 4854102, 2964662 #### [facility] [address] [place] [address] Consent for Treatmenton 01-29 Consent for Treatment [id number] #1.00TIFF Normal [facility] Lab Miscellaneous-LCon 02-07 Test Code 772050 Invalid Interpretation Code [facility] Comment on above: Performed By: #### 1 [id number] #### [facility] [address] [place] [address] Test Name Interleukin 6 Invalid Interpretation Code [facility] Comment on above: Performed By: #### 1 [id number] #### [facility] [address] [place] [address] Physician Orderon 02-07-2023 Physician Order [id number] 8#1.00TIFF Normal [facility] Sed Rate Automatedon 023 Sed Rate Automated 15 mm/hr Normal 0-34 [facility] Comment on above: Performed By: #### 1 6799992, 2458779, 2022280, 7973727 #### [facility] [address] [place] [address] Insurance Correspondence Off iceon 01-10-2023 Insurance Correspondence Office [id number] #1.00CD:127 Normal [facility] IntraOperative Documentson 0 10-19-2022 IntraOperative Documents [id number] #1.00CD:127 Normal [facility] Auto Diffon 10-13-2022 Basophils/100 WBC (Bld) 0.2 % Normal 0.0-2.0 [facility] Comment on above: Order Comment: Order Added by Discern Expert. Performed By: #### 2 888029, 7666244, 6285113, 0936157, 3026555, 42972158 ####[facility] [address] [place] [address] Basophils/Leukocytes Auto (Bld) [Pure # fraction] 0.0 E9/L Normal 0.0-0.2 [facility] Comment on above: Order Comment: Order Added by Discern Expert. Performed By: #### 2 784152, 9655151, 9685176, 2015411, 7406169, 26387876 ####[address] [place] [address] Eosinophils/100 WBC (Bld) 0.0 % Normal 0.0-8.0 [facility] Comment on above: Order Comment: Order Added by Yvonne Expert. Performed By: #### 2 702457, 0561944, 7784502, 5355602, 7309514, 45253425 ####[address] [place] [address] Eosinophils/Leukocyte s Auto (Bld) [Pure # fraction] 0.0 E9/L Normal 0.0-0.5 [facility] Comment on above: Order Comment: Order Added by Yvonne Expert. Performed By: #### 2 358366, 5771266, 4389937, 5578858, 7335894, 62394299 ####[address] [address] Lymphocytes/100 WBC (Bld) 12.9 % Low 14.0-50.0 [facility] Comment on above: Order Comment: Order Added by Yvonne Expert. Performed By: #### 2 463589, 0905124, 1970791, 6930155, 4976918, 66470471 ####[address] [address] Lymphocytes/Leukocyte s Auto (Bld) [Pure # fraction] 2.7 E9/L Normal 1.0-4.0 [facility] Comment on above: Order Comment: Order Added by Yvonne Expert. Performed By: #### 2 759586, 5107911, 0255727, 0773037, 0604031, 72560887 ####[address] [place] [address] Monocytes/100 WBC (Bld) 6.3 % Normal 4.0-14.0 [facility] Comment on above: Order Comment: Order Added by Yvonne Expert. Performed By: #### 2 606067, 3392619, 3459660, 2439535, 3840266, 84270195 ####[address] [place] [address] Monocytes/Leukocytes Auto (Bld) [Pure # fraction] 1.3 E9/L High 0.2-1.0 [facility] Comment on above: Order Comment: Order Added by Discern Expert. Performed By: #### 2 240120, 8145071, 5690336, 6040108, 8183742, 18696288 ####[address] [address] Neutrophils/100 WBC (Bld) 80.6 % High 36.0-75.0 [facility] Comment on above: Order Comment: Order Added by Discern Expert. Performed By: #### 2 168105, 1535317, 3063223, 4940140, 9955297, 81329764 ####[address] [address] Neutrophils/Leukocyte s Auto (Bld) [Pure # fraction] 16.7 E9/L High 2.0-7.5 [facility] Comment on above: Order Comment: Order Added by Discern Expert. Performed By: #### 2 593260, 1381321, 5704913, 8548957, 0002876, 61580898 ####[address] [place] [address] BUNon 10-13-2022 Urea nitrogen [Mass/Vol] 18 mg/dL Normal 5-21 [facility] Comment on above: Performed By: #### 2 786229, 7768525, 8245530, 9783761, 6739729, 91387773 ####[address] [address] CBC w/ Auto Diffon Erythrocyte distribution width (RBC) [Ratio] 13.7 % Normal 10.9-14.2 [facility] Comment on above: Performed By: #### 2 584073, 9880239, 5937910, 5185399, 2365564, 90549289 ####[address] [address] Hematocrit (Bld) [Volume fraction] 35.3 % Normal 34.0-46.0 [facility] Comment on above: Performed By: #### 2 666466, 1876774, 4521776, 8578851, 1079281, 15916841 ####[address] [address] Hemoglobin (Bld) [Mass/Vol] 12.0 g/dL Normal 12.0-16.0 [facility] Comment on above: Performed By: #### 2 449964, 9507460, 3632719, 4442903, 5579064, 47647507 ####[address] [address] MCH (RBC) [Entitic mass] 31.7 pg Normal 27.0-34.0 [facility] Comment on above: Performed By: #### 2 590955, 8941941, 1790726, 5379005, 1911480, 26973484 ####[address] [address] MCHC (RBC) [Mass/Vol] 33.9 g/dL Normal 31.4-36.0 [facility] Comment on above: Performed By: #### 2 822454, 7455087, 3685833, 3263690, 5415891, 94374345 ####[address] [address] MCV (RBC) [Entitic vol] 93.5 fL Normal 80.0-100.0 [facility] Comment on above: Performed By: #### 2 741708, 8976274, 3466047, 6379549, 3891180, 58958932 ####[address] [address] Platelet mean volume (Bld) [Entitic vol] 8.7 fL Normal 6.4-10.8 [facility] Comment on above: Performed By: #### 2 929243, 9237687, 6807469, 4173767, 5700926, 03491572 ####[facility] [address] [place] [address] Platelets (Bld) [#/Vol] 219.0 E9/L Normal 150.0-500.0 [facility] Comment on above: Performed By: #### 2 536708, 7102811, 5519500, 6818056, 6486878, 86146353 ####[facility] [address] [place] [address] RBC (Bld) [#/Vol] 3.8 E12/L Low 4.3-5.9 [facility] Comment on above: Performed By: #### 2 102977, 7789852, 1258065, 8078818, 6969502, 74781712 ####[facility] [address] [place] [address] WBC corrected for nucl RBC Auto (Bld) [#/Vol] 20.7 E9/L High 4.0-11.0 [facility] Comment on above: Result Comment: Slid e reviewed by BR. Performed By: #### 2 172037, 3504871, 6746524, 6381977, 3164079, 40877299 ####[facility] [address] [place] [address] CHEMISTRYOrdered By: SYSTEM SYSTEM on 10-13-2022 Anion gap [Moles/Vol] 7 mmol/L Normal 6 - 16 mEq/L [facility] Remisol Chloride [Moles/Vol] 109 mmol/L Normal 101 - 1 11 mmol/L [facility] Remisol CO2 [Moles/Vol] 23 mmol/L Normal 21 - 31 mmol/L [facility] Remisol Creatinine [Mass/Vol] 0.8 mg/dL Normal 0.5 - 1.3 mg/dL [facility] Remisol GFR/1.73 sq M.predicted among non-blacks MDRD (S/P/Bld) [Vol rate/Area] 76 mL/min/1.73 m2 Normal >=59mL/min/1. 73 m2 [facility] Chem S Potassium [Moles/Vol] 3.8 mmol/L Normal 3.5 - 5.3 mmol/L [facility] Remisol Sodium [Moles/Vol] 135 mmol/L Normal 135 - 145 mmol/L [facility] Remisol Urea nitrogen [Mass/Vol] 18 mg/dL Normal 5 - 21 mg/dL [facility] Remisol Consent for Anesthesiaon Consent for Anesthesia [id number] 2#1.00CD:127 Normal [facility] Creatinineon 10-13-2022 Creatinine [Mass/Vol] 0.8 mg/dL Normal 0.5-1.3 [facility] Comment on above: Performed By: #### 2 533468, 9444017, 0960222, 6491788, 1877349, 14408337 ####[facility] [address] [place] [address] Discharge Instructionson Discharge Instructions [id number]# 1.00CD:127 Normal [facility] Discharge Note-Nursingon Discharge Note-Nursing ARASH CORDERO :1945 [...] Test Results None Pharmacy Information Other: [facility] [place] New Follow Up Appointments after Discharge Follow Up with Glenn Plunkett When: 10/25/2022 09:45 AM EDT Where: [address] [place] [address]- [facility] (1) Follow Up with XXXX NONE When: In 0 days Where: [place] Medications What How Much When Instructions Next Dose Unchanged acetaminophen-oxycod one (Percocet 5 mg-325 mg oral tablet) See instructions 1-2 tab(s) Oral q4hr Pickup at [facility]/pharmacy #3471 10/13/22 After 3:00pm Unchanged celecoxib (CeleBREX 100 mg Cap) 1 Capsules By Mouth 2 times a day as needed for for pain Pickup at [facility]/pharmacy #3471 10/13/22 @ 9pm Unchanged cephalexin (Keflex 500 mg Cap) 1 Capsules By Mouth Every 8 hours Duration: 7 Days Pickup at [facility]/pharmacy #3471 10/14/22 @ 9am Unchanged docusate (Colace 100 mg Cap) 1 Capsules By Mouth 2 times a day as needed for for constipation Pickup at [facility]/pharmacy #3471 10/13/22 @ 9pm Unchanged multivitamin 1 tab By Mouth Every day 10/14/22 @ 9am [facility] [address], [place] [id number] [phone] What When Comments Stop Taking acetaminophen (Tylenol) [...] Allergies No Known Medication Allergies Education Materials [place], [place] [facility] DISCHARGE INSTRUCTIONS: SHOULDER REPLACEMENT [...] operative si (more content not included)... Normal [facility] HEMATOLOGYOrdered By: SYSTEM SYSTEM on 10-13-2022 Basophils/100 [...] Inpatient Clinical Summaryon 10-13-2022 Inpatient Clinical Summary [place] [address] Clinical Summary Person Information: Name: ARASH CORDERO Age: 77 Years : 1945 Sex: Female PCP: NONE, XXXX Marital Status: Race: Other Race Ethnicity: Non- or Language: Khmer Visit Id: Visit Reason: OA RIGHT SHOULDER Speciality: Acuity: Enc Type: Observation Med Service: Surgery Arrival: 10/12/2022 05:32:52 Discharge: Dispo Type: Address: [address] [place] [id number] Provider Notes: Diagnosis: Rotator cuff arthropathy of [...] AYUSH GUEVARA With: Address: When: [place] [address] [employer] () 10/25/2022 9:45 AM Patient Education Information: Jenise Plunkett - Shoulder Replacement (Custom) [facility] Inpatient Patient Summaryon 10-13-2022 Inpatient Patient Summary [address] [address] Patient Discharge Instructions PERSON INFORMATION Name: ARASH CORDERO Date of : 1945 Current Date: 10/13/2022 12:29:31 PHYSICIANS Admitting Physician: Glenn Plunkett DO Primary Care Physician: OKKI GUEVARA PCP Phone Number: Comment: Discharge Diagnosis: [...] GUEVARA With: Address: When: [place] [address] [employer] () 10/25/2022 9:45 AM In the event [...] Medications to Continue with No Changes [facility] [address] [facility] [place] [id number], [phone] acetaminophen-oxycod one (Percocet 5 mg-325 mg oral [...] RAH Lacey Comment: PATIENT EDUCATION INFORMATION Instructions: [place], [place] [facility] DISCHARGE INSTRUCTIONS: SHOULDER REPLACEMENT [...] in an acci (more content not included)... [facility] Interdisciplinary Note - Mann e Manageron 10-13-2022 Interdisciplinary Note - Deputy Coroner Investigator CRM to room to discuss DC planning. Patient is awake, alert. She speaks limited Turkish, family is in room and helps with what patient does not understand. Patient is from home with her spouse and daughter. Her Son is present and will transport at [place]. Patient verified PCP of Dr Zarate out of [place], verified home DME and insurance. Patient wanted a Shower Chair but not a covered expense by insurance, patient and family will purchase on own. Patient is here as an observation, Son signs Gueavra form. Patient had right reverse total shoulder arthroplasty. Patient is pending rounds with Dr Plunkett. Patient will DC home later today. CRM provided contact info, white board updated. Denied DC needs. CRM following Normal [facility] Comment on above: Result Comment: Elec tronically Signed By: Dunia Hunt\.br\Date and Time Signed: 10/13/22 12:45 EDT IntraOperative Documentson 0 10-13-2022 IntraOperative Documents [id number] 6#1.00CD:127 Normal [facility] Lyteson 10-13-2022 Anion gap [Moles/Vol] 7 mmol/L Normal 6-16 [facility] Comment on above: Performed By: #### 2 518367, 0143303, 3614470, 0890750, 2494166, 40178781 ####[facility] [address] [place] [address] Chloride [Moles/Vol] 109 mmol/L Normal 101-111 [facility] Comment on above: Performed By: #### 2 475240, 7457556, 6352521, 4993947, 6265707, 67260082 ####[facility] [address] [place] [address] CO2 [Moles/Vol] 23 mmol/L Normal 21-31 [facility] Comment on above: Performed By: #### 2 979607, 9805226, 4233536, 6980594, 5213458, 91365561 ####[facility] [address] [place] [address] Potassium [Moles/Vol] 3.8 mmol/L Normal 3.5-5.3 [facility] Comment on above: Performed By: #### 2 201367, 0419337, 6033529, 6957994, 1377563, 65923382 ####[facility] [address] [place] [address] Sodium [Moles/Vol] 135 mmol/L Normal 135-145 [facility] Comment on above: Performed By: #### 2 892113, 6903270, 7309340, 1129005, 8298206, 94116259 ####[facility] [address] [place] [address] Main OR Intraoperative Recor don 10-13-2022 Main OR Intraoperative Record IntraOp Document Type FT Summary Primary Physician: Glenn Plunkett DO Finalized Date/Time: 10/13/22 16:03:05 Pt. Name: ARASH CORDERO/Sex: 1945 Female Med Rec #: [id number] Physician: Glenn Plunkett DO Financial #: [id number] Pt. Type: O Room/Bed: [facility]/ Admit/Disch: 10/12/22 05:32:52 - 10/13/22 13:12:00 Institution: Case Times FT Entry 1 Patient Times In Room 10/12/22 07:16:00 Out Room 10/12/22 09:16:00 Procedure Times Start 10/12/22 07:52:00 Stop 10/12/22 09:06:00 Anesthesia Times Start 10/12/22 07:16:00 Stop 10/12/22 09:16:00 Block Timeout w/ 10/12/22 07:04:00 Anesthesia Last Modified By: Jorden ROSARIO, Katelin Mata 10/12/22 09:16:41 General Comments: BLOCK DONE BY DR. GUDINO AT [phone], ASSISTED BY Iván CENTENO, ABRAHAM; HR= 84, O2= 99% ON ROOM AIR. PATIENT TOLERATED PROCEDURE WELL. -Chacorta GUDINO RN 10/13/22 Chart opened to review and send charges [facility] Case Attendance FT Entry 1 Entry 2 Entry 3 Case Attendee Rico KINCAID, Rj Plunkett DO, Glenn Norwood, David Mcgregor Role Performed CAMP COUNSELOR Surgeon - Primary ACCOUNTING PROFESSIONAL/SA Time In 10/12/22 07:16:00 10/12/22 07:16:00 10/12/22 07:16:00 Time Out 10/12/22 09:16:00 10/12/22 08:59:00 10/12/22 08:50:00 Procedure SHOULDER TOTAL SHOULDER TOTAL SHOULDER TOTAL ARTHROPLASTY(Right) ARTHROPLASTY(Right) ARTHROPLASTY(Right) Comments Last Modified By: Jorden RN, Katelin Gudino RN, Katelin Gudino RN, Katelin Mata 10/12/22 Angela P 10/12/22 Angela P 10/12/22 09:16:42 09:16:42 09:16:42 Entry 4 Entry 5 Entry 6 Case Attendee Jorden ROSARIO, Amara Viramontes ACCOUNTING PROFESSIONAL, Kasie Mata Role Performed Automatic Car Wash Attendant - Primary Automatic Car Wash Attendant - Primary Scrub - Primary Time In [...] ARTHNEAL REP PRESENT FOR CASE -VIsidoro GUDINO RNregistered account administrator Protocols FT Pre-Care Text: Implements protective measures [...] General Melissa (more content not included)... Normal [facility] Message from Medicareon 09-29 Message from Medicare [id number] #1.00CD:127 Normal [facility] Patient Education - Texton 0 10-13-2022 Patient Education - Text [place], [place] [facility] DISCHARGE INSTRUCTIONS: SHOULDER REPLACEMENT [...] persistent vomiting. Glenn Plunkett DO [facility] [address] [place] [address] Reviewed: [facility] Progress Note-Physicianon Progress Note-Physician Patient: ARASH [...] 11:16 EDT Temperature Oral 36.5 DegC Normal [facility] Comment on above: Result Comment: Elec tronically Signed By: Glenn Plunkett DO\.br\Date and Time Signed: 10/13/22 12:31 EDT eGFRon 10-13-2022 GFR/1.73 sq M.predicted among non-blacks MDRD (S/P/Bld) [Vol rate/Area] 76 mL/min/1.73 m2 Normal >=59 [facility] Comment on above: Order Comment: Order added by Discern Expert. Result Comment: Bookkeeping Clerks Supervisor imelda kidney disease could be indicated at eGFR's of less than 60 mL/min/1.73m2. Kidney failure is indicated at less than 15 mL/min/1.73m2. Performed By: #### 2 582057, 3995614, 6635108, 5542967, 9796292, 90964853 ####[facility] [address] [place] [address] ABO/Rhon 10-12-2022 ABO/Rh Positive Invalid Interpretation Code [facility] Comment on above: Performed By: #### 2 700466, [id number], 19417387, 32715756 ####[address] [address] ABO/Rh History Checkon 10-12 ABO/Rh History Check Verified Hx Blood Type Normal [facility] Comment on above: Performed By: #### 2 558378, 03494219, 54408703, 40725191 ####[address] [place] [address] ABSCon 10-12-2022 ABSC Gel Interp Negative Normal [facility] Comment on above: Performed By: #### 2 848212, 51361595, 08989617, 55629174 ####[address] [address] BLOOD BANKOrdered By: Sindy De La Torre on 10-12-2022 ABO/Rh Interp Positive Invalid Interpretation Code [facility] BB Subsection ABSC Gel Interp Negative (10/12/22 6:26 AM) Normal [facility] BB Subsection Blood Bank ID#on 10-12-2022 BBID# [id number] Invalid Interpretation Code [facility] Comment on above: Performed By: #### 2 897113, 78405434, 94355096, 84537633 ####[facility] [address] [place] [address] Consent for Procedure/Surger yon 10-12-2022 Consent for Procedure/Surgery [id number]# 1.00CD:127 Normal [facility] Consent for Treatmenton 09-29 Consent for Treatment [id number] #1.00CD:127 Normal [facility] H&P Updateon 10-12-2022 H&P Update [id number]# 1.00CD:127 Normal [facility] Main OR PACU I Recordon 09-29 Main OR PACU I Record PACU Phase I Document Type FT Summary Primary Physician: Glenn Plunkett DO Finalized Date/Time: 10/12/22 10:55:35 Pt. Name: ARASH CORDERO/Sex: 1945 Female Med Rec #: [id number] Physician: Glenn Plunkett DO Financial #: [id number] Pt. Type: A Room/Bed: [facility] [...] 10:17 Nicolasa Johnson RN 10/12/22 10:55 Normal [facility] Main OR Preoperative Recordo n 10-12-2022 Main OR Preoperative Record PreOp Document Type FT Summary Primary Physician: Glenn Plunkett DO Finalized Date/Time: 10/12/22 07:56:41 Pt. Name: ARASH CORDERO /Sex: 1945 Female Med Rec #: [id number] Physician: Glenn Plunkett DO Financial #: [id number] Pt. Type: A Room/Bed: [place] [address] Admit/Disch: 10/12/22 05:32:52 - Institution: Case Times [...] By: Katelin Gudino RN 10/12/22 07:56 Normal [facility] Operative Reporton Operative Report Patient: ARASH CORDERO Age: 77 years Sex: Female : 1945 Associated Diagnoses: None Author: Glenn Plunkett DO DATE OF SURGERY: 10/12/2022 SURGEON: Glenn Plunkett D.O. COLORER MACHINE: Calvin Norwood CFA PREOPERATIVE DIAGNOSIS: Rotator cuff [...] Suturecup OPERATIVE INDICATIONS: Arash is a 77-year-old dzsvm-sxej-duhbcreh female who has significant pain in the right shoulder despite conservative measures. Her symptoms interfere with her activities of daily living, ability to sleep at night, and quality of life. She agreed to proceed with the above procedure after a discussion of the risks, benefits, complications, alternatives, and expectations. Please see office notes for further details. Presurgical planning was performed with the [employer]! software. PROCEDURE: The correct operative site was [...] to determine (more content not included)... Normal [facility] Comment on above: Result Comment: Elec tronically [...] Using maximal sterile barrier technique per current [facility] guidelines including hand hygeine, Guidance (Ultrasound [...] patient tolerated the procedure as expected. Normal [facility] Comment on above: Result Comment: Elec tronically Signed By: Charles Gudino DO\.br\Date and Time Signed: 10/12/22 11:34 EDT Outpatient Surgery Discharge Instructionon 10-12-2022 Outpatient Surgery Discharge Instruction [address] [address] Patient Discharge Instructions PERSON INFORMATION [...] Follow up: With: Address: When: Glenn Plunkett [address] [place] [address] [phone] Business (1) 10/25/2022 9:45 AM Pharmacy Information: [...] to serve you. Thank you for choosing [facility] HERE ARE THE MEDICATION CHANGES THAT OCCURRED DURING YOUR HOSPITAL STAY Medications to Continue with No Changes [id number], [address], [place] [phone], [phone] acetaminophen-oxycod one (Percocet 5 mg-325 mg oral [...] Mouth every day. PATIENT EDUCATION INFORMATION Instructions: [place], [place] [facility] DISCHARGE INSTRUCTIONS: SHOULDER REPLACEMENT [...] persistent vomiting. Glenn Plunkett DO [facility] [address] [place] [address] Reviewed: Medication Leaflets: [facility] Proceduralon 10-12-2022 Procedural Patient: ARASH CORDERO [...] pain, # 60 cap(s), Refills(s) 0, Pharmacy: [id number], 155, cm, 09/28/22 5:33:00 EDT, Height/Length Dosing, 65.6, kg, 09/28/22 5:33:00 EDT, Weight Dosing Colace 100 mg Cap: 100 mg = 1 cap(s), Oral, BID, PRN for constipation, # 20 cap(s), Refills(s) 0, Pharmacy: [facility]/pharmacy #[id number], 155, cm, 09/28/22 5:33:00 EDT, Height/Length Dosing, 65.6, kg, 09/28/22 5:33:00 EDT, Weight Dosing Keflex 500 mg Cap: 500 mg = 1 cap(s), Oral, q8hr, X 7 day(s), # 21 cap(s), Refills(s) 0, Pharmacy: [facility]/pharmacy #[id number], 155, cm, 09/28/22 5:33:00 EDT, Height/Length Dosing, 65.6, kg, 09/28/22 5:33:00 EDT, Weight Dosing Percocet 5 mg-325 mg oral tablet: See Instructions, 40 tab(s), Refill(s) 0, 1-2 tab(s) Oral q4hr, [id number], 155, cm, 09/28/22 5:33:00 EDT, Height/Length Dosing, 65.6, kg, 09/28/22 5:33:00 EDT, Weight Dosing Documented Medications D (more content not included)... Normal [facility] Progress Note-Physicianon Progress Note-Physician Patient: ARASH CORDERO [...] pain, # 60 cap(s), Refills(s) 0, Pharmacy: [facility]/pharmacy #1030, 155, cm, 09/28/22 5:33:00 EDT, Height/Length Dosing, 65.6, kg, 09/28/22 5:33:00 EDT, Weight Dosing Colace 100 mg Cap: 100 mg = 1 cap(s), Oral, BID, PRN for constipation, # 20 cap(s), Refills(s) 0, Pharmacy: [facility]/pharmacy #3471, 155, cm, 09/28/22 5:33:00 EDT, Height/Length Dosing, 65.6, kg, 09/28/22 5:33:00 EDT, Weight Dosing Keflex 500 mg Cap: 500 mg = 1 cap(s), Oral, q8hr, X 7 day(s), # 21 cap(s), Refills(s) 0, Pharmacy: [facility]/pharmacy #3471, 155, cm, 09/28/22 5:33:00 EDT, Height/Length Dosing, 65.6, kg, 09/28/22 5:33:00 EDT, Weight Dosing Percocet 5 mg-325 mg oral tablet: See Instructions, 40 tab(s), Refill(s) 0, 1-2 tab(s) Oral q4hr, [facility]/pharmacy #[id number], 155, cm, 09/28/22 5:33:00 EDT, Height/Length [...] 138 m (more content not included)... Normal [facility] Comment on above: Result Comment: Elec tronically [...] pain, # 60 cap(s), Refills(s) 0, Pharmacy: [facility]/pharmacy #3471, 155, cm, 09/28/22 5:33:00 EDT, Height/Length Dosing, 65.6, kg, 09/28/22 5:33:00 EDT, Weight Dosing Colace 100 mg Cap: 100 mg = 1 cap(s), Oral, BID, PRN for constipation, # 20 cap(s), Refills(s) 0, Pharmacy: [facility]/pharmacy #3471, 155, cm, 09/28/22 5:33:00 EDT, Height/Length Dosing, 65.6, kg, 09/28/22 5:33:00 EDT, Weight Dosing Keflex 500 mg Cap: 500 mg = 1 cap(s), Oral, q8hr, X 7 day(s), # 21 cap(s), Refills(s) 0, Pharmacy: [facility]/pharmacy #3471, 155, cm, 09/28/22 5:33:00 EDT, Height/Length [...] mg ora (more content not included)... Normal [facility] Comment on above: Result Comment: Elec tronically [...] Plunkett FINAL REPORT Dictated: 10/12/2022 12:32 pm Flaktio Reyes MD, V. Signed (Electronic Signature): 10/12/2022 12:32 pm Signed by: Flakito Reyes MD, V. Transcribed by: JACKSON Technologist: BA Technical Comments Radiation Dose: Ka,r in mGy = na DAP = na Normal [facility] CT Upper Extremity w/o Contr ast Righton [...] DO Transcribed by: JACKSON Technologist: JERILYN Mo [facility] XR Chest 2 Viewson 3 XR Chest [...] mGy = na DAP = na Normal [facility] ABO/Rh Retypeon 09-27-2022 ABO/Rh Retype Interp Positive Invalid Interpretation Code [facility] Comment on above: Performed By: #### 1 [id number] ####[facility] [address] [place] [address] BLOOD BANKOrdered By: Yandy Brady on 09-27-2022 ABO/Rh Retype Interp Positive Invalid Interpretation Code [facility] BB Subsection BUNon 09-27-2022 Urea nitrogen [Mass/Vol] 17 mg/dL Normal 5-21 [facility] Comment on above: Performed By: #### 2 862515, 5878682, 4617594, 6001909, 48485962, 6259415 ####[facility] [address] [place] [address] CBC w/Indiceson 09-27-2022 Erythrocyte distribution width (RBC) [Ratio] 13.7 % Normal 10.9-14.2 [facility] Comment on above: Performed By: #### 2 367898, 8194965, 1590730, 7956619, 13540857, 1015768 #### [facility] [address] [place] [address] Hematocrit (Bld) [Volume fraction] 37.6 % Normal 34.0-46.0 [facility] Comment on above: Performed By: #### 2 207560, 6077323, 5314866, 9720190, 01317409, 7731421 #### [facility] [address] [place] [address] Hemoglobin (Bld) [Mass/Vol] 12.8 g/dL Normal 12.0-16.0 [facility] Comment on above: Performed By: #### 2 244306, 8108489, 9967638, 9757526, 53697744, 8778407 #### [facility] [address] [place] [address] MCH (RBC) [Entitic mass] 32.0 pg Normal 27.0-34.0 [facility] Comment on above: Performed By: #### 2 820688, 8337106, 1053578, 9781316, 51947017, 4105643 #### [facility] [address] [place] [address] MCHC (RBC) [Mass/Vol] 34.1 g/dL Normal 31.4-36.0 [facility] Comment on above: Performed By: #### 2 036199, 6624564, 6028447, 6827461, 03552012, 8317103 #### [facility] [address] [place] [address] MCV (RBC) [Entitic vol] 93.9 fL Normal 80.0-100.0 [facility] Comment on above: Performed By: #### 2 682411, 2501350, 6391003, 7138186, 34028116, 0288825 #### [facility] [address] [place] [address] Platelet mean volume (Bld) [Entitic vol] 8.3 fL Normal 6.4-10.8 [facility] Comment on above: Performed By: #### 2 818184, 4250658, 6826420, 3529022, 65690098, 7734826 #### [facility] [address] [place] [address] Platelets (Bld) [#/Vol] 209.0 E9/L Normal 150.0-500.0 [facility] Comment on above: Performed By: #### 2 698193, 0297172, 9331558, 7694871, 27422684, 4241976 #### [facility] [address] [place] [address] RBC (Bld) [#/Vol] 4.0 E12/L Low 4.3-5.9 [facility] Comment on above: Performed By: #### 2 827908, 2656363, 2477111, 1274987, 15202085, 0087837 #### [facility] [address] [place] [address] WBC corrected for nucl RBC Auto (Bld) [#/Vol] 8.1 E9/L Normal 4.0-11.0 [facility] Comment on above: Performed By: #### 2 165607, 7871176, 8111557, 3532754, 44145868, 2475865 #### [facility] [address] [place] [address] CHEMISTRYOrdered By: SYSTEM SYSTEM on 09-27-2022 Anion gap [Moles/Vol] 12 mmol/L Normal 6 - 16 mEq/L [facility] Remisol Chloride [Moles/Vol] 104 mmol/L Normal 101 - 1 11 mmol/L [facility] Remisol CO2 [Moles/Vol] 26 mmol/L Normal 21 - 31 mmol/L [facility] Creatinine [Mass/Vol] 0.7 mg/dL Normal 0.5 - 1.3 mg/dL [facility] Remisol GFR/1.73 sq M.predicted among non-blacks MDRD (S/P/Bld) [Vol rate/Area] 90 mL/min/1.73 m2 Normal >=59mL/min/1. 73 m2 [facility] Chem S Glucose [Mass/Vol] 106 mg/dL Normal 55 - 199 mg/dL [facility] Potassium [Moles/Vol] 3.8 mmol/L Normal 3.5 - 5.3 mmol/L [facility] Sodium [Moles/Vol] 138 mmol/L Normal 135 - 145 mmol/L [facility] Urea nitrogen [Mass/Vol] 17 mg/dL Normal 5 - 21 mg/dL [facility] Consent for Treatmenton 08-31 Consent for Treatment [id number] #1.00CD:127 Normal [facility] Creatinineon 09-27-2022 Creatinine [Mass/Vol] 0.7 mg/dL Normal 0.5-1.3 [facility] Comment on above: Performed By: #### 2 877491, 6070197, 2171891, 5604435, 22928758, 1923087 ####[facility] [address] [place] [address] Glucoseon 09-27-2022 Glucose [Mass/Vol] 106 mg/dL Normal 55-199 [facility] Comment on above: Performed By: #### 2 469511, 3398104, 6561251, 3191407, 50581600, 7941552 #### [facility] [address] [place] [address] HEMATOLOGYOrdered By: Yandy Brady on 09-27-2022 Erythrocyte distribution width (RBC) [Ratio] 13.7 % Normal 10.9 - 14.2 % [facility] HemeAutoSS Hematocrit (Bld) [Volume fraction] 37.6 % Normal 34.0 - 46.0 % [facility] HemeAutoSS Hemoglobin (Bld) [Mass/Vol] 12.8 g/dL Normal 12.0 - 16.0 gm/dL [facility] HemeAutoSS MCH (RBC) [Entitic mass] 32.0 pg Normal 27.0 - 34.0 pg [facility] HemeAutoSS MCHC (RBC) [Mass/Vol] 34.1 g/dL Normal [...] 8.1 E9/L Normal 4.0 - 11.0 E9/L [facility] HemeAutoSS Lyteson 09-27-2022 Anion gap [Moles/Vol] 12 mmol/L Normal 6-16 [facility] Comment on above: Performed By: #### 2 257520, 6223723, 1243769, 8704011, 64147697, 7361606 ####[facility] [address] [place] [address] Chloride [Moles/Vol] 104 mmol/L Normal 101-111 [facility] Comment on above: Performed By: #### 2 228996, 5338816, 3052164, 0083203, 59194465, 7247429 ####[facility] [address] [place] [address] CO2 [Moles/Vol] 26 mmol/L Normal 21-31 [facility] Comment on above: Performed By: #### 2 763619, 7986382, 0760625, 5481720, 43445782, 6650065 ####[facility] [address] [place] [address] Potassium [Moles/Vol] 3.8 mmol/L Normal 3.5-5.3 [facility] Comment on above: Performed By: #### 2 836645, 3120772, 8336430, 6034571, 65568753, 1764572 ####[facility] [address] [place] [address] Sodium [Moles/Vol] 138 mmol/L Normal 135-145 [facility] Comment on above: Performed By: #### 2 016693, 8391463, 8781676, 4949633, 88358262, 7902132 ####[facility] [address] [place] [address] UA With Cult Reflexon 2022 Bilirubin Ql (U) Negative Normal Negative [facility] Comment on above: Performed By: #### 1 7372858 ####[facility] [address] [place] [address] Clarity (U) CLEAR Normal Clear [facility] Comment on above: Performed By: #### 1 1603622 ####[address] [address] Color (U) YELLOW Normal Yellow [facility] Comment on above: Performed By: #### 1 [id number] ####[address] [address] Epithelial cells.squamous LM.HPF (Urine sed) [#/Area] 0-2 Normal 0-2 [facility] Comment on above: Performed By: #### 1 0630691 ####[address] [address] Glucose Test strip (U) [Mass/Vol] Negative Normal Negative [facility] Comment on above: Performed By: #### 1 8201846 ####[address] [address] Hemoglobin Ql (U) Negative Normal Negative [facility] Comment on above: Performed By: #### 1 5272665 ####[address] [address] Ketones (U) [Mass/Vol] Negative Normal Negative [facility] Comment on above: Performed By: #### 1 0427508 ####[address] [address] [place].plasma/Lithiu m.RBC (Bld) [Mass ratio] 0-3 Normal 0-3 [facility] Comment on above: Performed By: #### 1 3146754 ####[address] [address] Nitrite Ql (U) Negative Normal Negative [facility] Comment on above: Performed By: #### 1 2297479 ####[address] [address] pH (U) 5.5 [pH] Invalid Interpretation Code 5.0-9.0 [facility] Comment on above: Performed By: #### 1 6578976 ####[facility] [address] [place] [address] Protein (U) [Mass/Vol] Negative Normal Negative [facility] Comment on above: Performed By: #### 1 6914413 ####[address] [address] Specific gravity (U) [Rel density] 1.015 Invalid Interpretation Code 1.005-1.030 [facility] Comment on above: Performed By: #### 1 2900008 ####[address] [address] Type of Urine collection method Clean Catch Normal [facility] Comment on above: Performed By: #### 1 0679531 ####[address] [address] Urobilinogen Qn (U) 0.2 {Behzad'U}/dL Normal 0.0-1.0 [facility] Comment on above: Performed By: #### 1 8772094 ####[facility] [address] [place] [address] WBC Auto Ql (U) Negative Normal Negative [facility] Comment on above: Performed By: #### 1 8027119 ####[facility] [address] [place] [address] WBC LM.HPF (Urine sed) [#/Area] 0-5 Normal 0-5 [facility] Comment on above: Performed By: #### 1 5510804 ####[facility] [address] [place] [address] URINALYSISOrdered By: Richelle Phelan on 09-27-2022 Bilirubin [...] PM) Normal Negative [facility] UA Auto SS [place].plasma/Lithiu m.RBC (Bld) [Mass ratio] 0-3 /HPF Normal 0-3/HPF [facility] UA Auto SS Nitrite Ql (U) Negative (09/27/22 3:30 PM) Normal Negative [facility] UA Auto SS pH (U) 5.5 *NA* (09/27/22 3:30 PM) Invalid Interpretation Code 5.0 - 9.0 [facility] UA Auto SS Protein (U) [Mass/Vol] Negative (09/27/22 3:30 PM) Normal Negative [facility] UA Auto SS Specific gravity (U) [Rel density] 1.015 *NA* (09/27/22 3:30 PM) Invalid Interpretation Code 1.005 - 1.030 [facility] UA Auto SS UA Spec Desc Clean Catch (09/27/22 3:30 PM) Normal [facility] UA Auto SS Urobilinogen Qn (U) 0.1796465 {Behzad'U}/dL Normal 0.0 - 1.0 EU/dL [facility] UA Auto SS WBC Auto Ql (U) Negative (09/27/22 3:30 PM) Normal Negative [facility] UA Auto SS WBC LM.HPF (Urine sed) [#/Area] 0-5 /HPF Normal 0-5/HPF [facility] UA Auto SS eGFRon 09-27-2022 GFR/1.73 sq M.predicted among non-blacks MDRD (S/P/Bld) [Vol rate/Area] 90 mL/min/1.73 m2 Normal >=59 [facility] Comment on above: Order Comment: Order added by Discern Expert. Result Comment: Bookkeeping Clerks Supervisor imelda kidney disease could be indicated at eGFR's of less than 60 mL/min/1.73m2. Kidney failure is indicated at less than 15 mL/min/1.73m2. Performed By: #### 2 350156, 6474923, 7078612, 2546660, 62634083, 5450616 ####[facility] [address] [place] [address] Physician Orderon 09-20-2022 Physician Order [id number] #1.00CD:127 Normal [facility] Physician Orderon 09-09-2022 Physician Order [id number]#1.00CD:127 Normal [facility] Pre-Certification Formon Pre-Certification Form [id number] #1.00CD:127 Normal [facility] Physician Orderon 09-01-2022 Physician Order [id number] #1.00CD:127 Normal [facility] Physician Orderon 08-26-2022 Physician Order [id number]#1.00CD:127 Normal [facility] CT CSPINE WO CONon CT CSPINE WO [...] ADRIANA MONSIVAIS Date: 2021-04-28 21:08 Normal [facility] CT FACIAL BONES WO CONon CT FACIAL BONES [facility] Maxillofacial CT WITHOUT CONTRAST, 04/28/2021 7:26 PM [...] Joey LARSON Date: 2021-04-28 20:59 Normal [facility] CT HEAD WO CONon 04-28-2021 CT [...] TRACEY RODRÍGUEZ Date: 2021-04-28 20:37 Normal [facility] Vital Signs Date Time Vital Sign Value Performing Clinician Scott olivera 10-13-2022 13:02-0400 Hourly Rounding Glenn Billy [employer] [facility] 10-13-2022 13:02-0400 Promise to Return Glenn Billy [employer] [facility] 10-13-2022 12:00-0400 Hourly Rounding Glenn Billy [employer] [facility] 10-13-2022 12:00-0400 Promise to Return Glenn Billy [employer] [facility] 10-13-2022 11:51-0400 Hourly Rounding Glenn Plunkett [facility] 10-13-2022 11:51-0400 Promise to Return Glenn Plunkett [facility] 10-13-2022 11:17-0400 Heart rate 82 /min Glenn Plunkett [facility] 10-13-2022 11:17-0400 SaO2% (BldA) [Mass fraction] 94 % Glenn Plunkett [facility] 10-13-2022 11:16-0400 Diastolic blood pressure 72 mm[Hg] Glenn Plunkett [facility] 10-13-2022 11:16-0400 Mean blood pressure 88 mm[Hg] Glenn Plunkett [facility] 10-13-2022 11:16-0400 Systolic blood pressure 120 mm[Hg] Glenn Plunkett [facility] 10-13-2022 11:16-0400 Body temperature 97.7 [degF] Glenn Plunkett [facility] 10-13-2022 07:52-0400 Heart rate 84 /min Glenn Plunkett [facility] 10-13-2022 07:52-0400 SaO2% (BldA) [Mass fraction] 94 % Glenn Plunkett [facility] 10-13-2022 07:49-0400 Body temperature 98.06 [degF] Glenn Plunkett [facility] 10-13-2022 07:49-0400 Diastolic blood pressure 66 mm[Hg] Glenn Plunkett [facility] 10-13-2022 07:49-0400 Mean blood pressure 82 mm[Hg] Glenn Plunkett [facility] 06-15-2023 07:49-0400 Systolic blood pressure 114 mm[Hg] Glenn Brown [facility] 10-13-2022 04:50-0400 Blood Pressure Location Glenn Plunkett [facility] 10-13-2022 04:50-0400 Body temperature 97.88 [degF] Glenn Plunkett [facility] 10-13-2022 04:50-0400 Diastolic blood pressure 66 mm[Hg] Glenn Brown [facility] 10-13-2022 04:50-0400 Heart rate 79 /min Glenn Billy [employer] [facility] 10-13-2022 04:50-0400 Mean blood pressure 81 mm[Hg] Glenn Billy [employer] [facility] 10-13-2022 04:50-0400 Respiratory rate 18 /min Glenn Billy [employer] [facility] 10-13-2022 04:50-0400 SaO2% (BldA) [Mass fraction] 92 % Glenn Billy [employer] [facility] 10-13-2022 04:50-0400 Systolic blood pressure 112 mm[Hg] Glenn Billy [employer] [facility] 10-12-2022 23:45-0400 Blood Pressure Location Glenn Plunkett [facility] 10-12-2022 23:45-0400 Mean blood pressure 81 mm[Hg] Gelnn Brown [facility] 10-12-2022 23:45-0400 Respiratory rate 18 /min Glenn Billy [employer] [facility] 10-12-2022 20:04-0400 Mean blood pressure 70 mm[Hg] Glenn Billy [employer] [facility] 10-12-2022 20:00-0400 Respiratory rate 17 /min Glenn Brown [facility] 10-12-2022 12:00-0400 Body temperature 98.06 [degF] Glenn Brown [facility] 10-12-2022 10:37-0400 Body temperature 98.24 [degF] Glenn Brown [facility] 10-12-2022 10:36-0400 Body temperature 97.88 [degF] Glenn Brown [facility] 10-12-2022 10:36-0400 Mean blood pressure 94 mm[Hg] Glenn Brown [facility] 10-12-2022 10:36-0400 Respiratory rate 10 /min Glenn Brown [facility] 10-12-2022 10:15-0400 Respiratory rate 19 /min Glenn Brown [facility] 10-12-2022 10:05-0400 Respiratory rate 11 /min Glenn Brown [facility] 10-12-2022 05:59-0400 Heart rate 80 /min Glenn Brown [facility] 09-27-2022 14:44-0400 Diastolic blood pressure 77 mm[Hg] Glenn Brown [facility] 09-27-2022 14:44-0400 Heart rate 88 /min Glenn Brown [facility] 09-27-2022 14:44-0400 Mean blood pressure 100 mm[Hg] Glenn Brown [facility] 09-27-2022 14:44-0400 Systolic blood pressure 146 mm[Hg] Glenn Brown [facility] 09-27-2022 14:43-0400 Heart rate 89 /min Glenn Brown [facility] 09-27-2022 14:43-0400 SaO2% (BldA) [Mass fraction] 97 % Glenn Plunkett [facility] 09-27-2022 14:43-0400 Respiratory rate 18 /min Glenn Plunkett [facility] 09-27-2022 14:42-0400 Body temperature 97.52 [degF] Glenn Plunkett [facility] 09-27-2022 14:42-0400 Diastolic blood pressure 81 mm[Hg] Glenn Plunkett [facility] 09-27-2022 14:42-0400 Mean blood pressure 104 mm[Hg] Glenn Plunkett [facility] 09-27-2022 14:42-0400 Systolic blood pressure 150 mm[Hg] Glenn Plunkett [facility] Encounters Encounter Date Encounter Type Care Provider Facility Start: 04-07-2023 End: 04-08-2023 ambulatory Glenn Plunkett [place] [place]: 04-07-2023 End: 04-07-2023 Patient encounter procedure Glenn Plunkett [facility] Start: 03-14-2023 End: 03-14-2023 ambulatory GLENN PLUNKETT Not Available Start: 02-07-2023 End: 02-08-2023 ambulatory Glenn Plunkett [place] [place] Start: 10-12-2022 End: 10-13-2022 ambulatory Glenn Plunkett [place] [place] Start: 10-12-2022 End: 10-13-2022 Observation Glenn Plunkett [facility] Start: 09-27-2022 End: 09-28-2022 ambulatory Glenn Plunkett Facility:[facility] Start: 09-27-2022 End: 09-27-2022 Patient encounter procedure Glenn Plunkett [facility] Start: 04-28-2021 End: 04-28-[address] ZOË MCLEOD Facility:[facility] Procedures Date Procedure Procedure Detail Performing Clinician Start: 10-12-2022 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 1945 Unknown [id number] 1945 Unknown [id number] 2.16.8 [id number] 1945 Unknown [id number] 2.16.8 [id number] 1945 Unknown [id number] 2.16.8 [id number] 1945 Unknown [id number] 2.16.8 [id number] Social History Date Type Detail Facility Tobacco smoking status No Smoking Status Entered [facility] Sex Assigned At Female [facility] Medical Equipment Procedure Code Equipment Code Equipment [...] Assessment Result Facility 09-27-2022 Functional Status No [facility] Discharge summary note 10-13-2022 Note Date & Type Note Facility 10-13-2022 Note Patient: ARASH RUIZ Age: 77 years Sex: Female : 1945 Associated Diagnoses: None Author: Glnen Plunkett DO Discharge Information Discharge Summary Information: [...] multivitamin 1 tab, Oral, Daily, 0 Refill(s) [facility] Comment on above: Result Comment: Elec tronically [...] Basic PRE Author:Jake Gudino DO Date:10/12/22 Plan [place] [employer] (ASA) physical status classification: Class II. Anesthetic Preoperative Plan: Anesthesia General. Regional Interscalene block. [facility] Hospital Discharge instructions 10-12-2022 Note Date & Type Note Facility 10-12-2022 Hospital Discharg e instructions Patient Education 10/12/2022 06:57:22 Jenise Plunkett - Shoulder Replacement (Custom) [place], [place] [facility] DISCHARGE INSTRUCTIONS: SHOULDER REPLACEMENT [...] persistent vomiting. Glenn Plunkett, DO [facility] [address] [place], [place] [id number] Reviewed: Follow Up Care 08/25/2022 15:38:11 With:XXXX NONE Address: [place] When: Unknown With:Glenn Plunkett Address: [address] [place] [phone] Business (1) When:10/25/2022 09:45:00 [facility] History and physical note 10-12-2022 Note Date & Type Note Facility 10-12-2022 Note [id number] [facility] Clinical Note 04-28-2021 Note Date & Type [...] authenticated by: TRACEY RODRÍGUEZ Date: 2021-04-28 20:18 [facility] Evaluation + Plan note Note Date & Type Note [facility] Evaluation + Plan note Future Appointments Appointment Date:10/12/2022 07:30:00 AM Scheduled Provider: Location:[facility] Appointment Type:Surgery FT [facility] Hospital course Narrative Note Date & Type Note Facility Hospital course Narrative No data available for this section [facility] Hospital Discharge instructions Note Date & Type Note Facility Hospital Discharge instructions No data available for this section [facility] Progress note Note Date & Type Note Facility Progress note No data available for this section [facility] Summary Purpose Family History No Family History Records FoundNo Family History Records FoundNo Family History Records Found No data available for this section No Family History Records Found Advance Directives No Advanced Directives Records FoundNo Advanced Directives Records FoundNo Advanced Directives Records FoundNo Advanced Directives Records Found Additional Source Comments INFORMATION SOURCE (unrecogn ized section and content) DATE CREATED AUTHOR 05/05/2021 [facility] DATE CREATED AUTHOR AUTHOR'S ORGANIZ ATION 01/03/2023 [facility] DATE CREATED AUTHOR AUTHOR'S ORGANIZ ATION 03/16/2023 [facility] DATE CREATED AUTHOR AUTHOR'S ORGANIZ ATION 04/12/2023 [facility] FOR RECORDS PERTAINING TO PATIENTS WHO [...] BE BASED ON THE PRIMARY CLINICAL RECORDS. [employer] [facility]. provides no warranty or guarantee of the accuracy or completeness of information in this document.
--- NOTE | 2023-06-24 22:27 | ED.GENADUL1 ---
HPI - General Adult General Chief complaint: Skin/Abscess/Foreign Body Stated complaint: RASH Time Seen by Provider: 06/24/23 22:04 Source: family Mode of arrival: walk-in Limitations: language barrier History of Present Illness HPI narrative: Patient developed a painful rash yesterday evening that was worse this morning. The raised red patchy rash extends from the right flank around to the right abdomen. nothing taken at home for the pain. She got a shigles vaccine 2 years ago - none since. Related Data Home Medications Medication Instructions Recorded Confirmed cyclosporine 0.05 % eye drops in a 1 drp ophthalmic (eye) Q12H 12/03/22 06/24/23 dropperette (Restasis) ibuprofen 200 mg capsule 200 mg PO Q8H 12/03/22 12/03/22 Previous Rx's Medication Instructions Recorded acyclovir 800 mg tablet 800 mg PO Q4H #25 tabs 06/24/23 hydrocodone 5 mg-acetaminophen 325 1 tab PO Q6H PRN pain 5 days #14 06/24/23 mg tablet tabs prednisone 20 mg tablet 40 mg (2 x 20 mg) PO DAILY 4 days 06/24/23 #8 tabs Allergies Allergy/AdvReac Type Severity Reaction Status Date / Time No Known Drug Allergies Allergy Verified 12/03/22 21:58 PFSH PFSH Social History Smoking status: Never smoker Exam Narrative Exam Narrative: Nurses notes and vital signs reviewed and patient is not hypoxic. afebrile General: Well-appearing and in no apparent distress. Skin: Warm, dry, no pallor noted. patchy raised erythematous rash with vesicles indicating acute herpes zoster infection from right flank around into right abdomen on a dermatomal line. Eye: Pupils are equal, round and EOMI. No scleral icterus. Cardiovascular: Regular Rate and Rhythm without murmur, gallop or rub. Respiratory: No accessory muscle use or respiratory distress. Lungs are clear to auscultation, no wheezing, rales or rhonchi Back: No midline thoracic or lumbar vertebral tenderness. No CVA tenderness. Rash extends into right flank Musculoskeletal: normal ROM GI: Abdomen is soft, non-distended. Normal bowel sounds. Right abdominal tenderness to palpation along the dermatomal herpes zoster rash. No rebound, guarding, or rigidity noted. Neurological: A&O x4. No cranial nerve dysfunction observed. No truncal ataxia. Moves all extremities. Sensation intact. Psychiatric: Cooperative and interactive. Normal mood and affect. Constitutional Vital Signs, click to edit/add: Last Vital Signs Temp 97.7 F 06/24/23 21:59 Pulse 83 06/24/23 21:59 Resp 20 06/24/23 21:59 BP 158/69 H 06/24/23 21:59 Pulse Ox 96 06/24/23 21:59 O2 Del Method Room Air 06/24/23 21:59 Course Vital Signs Vital signs: Vital Signs Temperature 97.7 F 06/24/23 21:59 Pulse Rate 83 06/24/23 21:59 Respiratory Rate 20 06/24/23 21:59 Blood Pressure 158/69 H 06/24/23 21:59 Pulse Oximetry 96 06/24/23 21:59 Oxygen Delivery Method Room Air 06/24/23 21:59 Temperature 97.7 F 06/24/23 21:59 Pulse Rate 83 06/24/23 21:59 Respiratory Rate 20 06/24/23 21:59 Blood Pressure 158/69 H 06/24/23 21:59 Pulse Oximetry 96 06/24/23 21:59 Oxygen Delivery Method Room Air 06/24/23 21:59 Medical Decision Making MDM Narrative Medical decision making narrative: Grand daughter interpreted for the patient. She has herpes zoster. The patient was given first dose of acyclovir in the ED. She also received IM Solumedrol and oral norco for pain. Discharged home with prescriptions for additional acyclovir, prednisone and norco. Discharge Plan Discharge Chief Complaint: Skin/Abscess/Foreign Body Clinical Impression: Herpes zoster Patient Disposition: Home, Self-Care Time of Disposition Decision: 22:31 Prescriptions / Home Meds: New acyclovir 800 mg tablet 800 mg PO Q4H Qty: 25 0RF Rx Instructions: while awake; give 5 doses in 24 hours prednisone 20 mg tablet 40 mg PO DAILY 4 Days Qty: 8 0RF hydrocodone-acetaminophen 5-325 mg tablet 1 tab PO Q6H PRN (Reason: pain) 5 Days Qty: 14 0RF Rx Instructions: ICD 10 = B02 No Action cyclosporine [Restasis] 0.05 % dropperette 1 drp OPHTHALMIC (EYE) Q12H ibuprofen 200 mg capsule 200 mg PO Q8H Print Language: Bengali Instructions: Shingles (ED) Stand Alone Forms: Portal Instructions Referrals: Physician,Non-Staff, [Primary Care Provider] - 1 week
[2023-06-24] MEDS: METHYLPREDNISOLONE SOD SUCC PF 125 MG/2 ML VIAL IM (23:14)
[2023-06-24] MEDS: HYDROCODONE/ACET 5-325 MG TABLET 2 TAB PO (23:14)
[2023-06-24] MEDS: ACYCLOVIR 200 MG CAPSULE 800 MG PO (23:15)
== END 2023-06-24 23:33 | disposition home or self-care (01) ==
PROVIDERS: Emergency Provider Emergency Medicine
DX: B02.9 Zoster without complications (principal)
CPT/HCPCS: 96372; 99284; J2930